=== PATIENT | male | born 1970 | race Caucasian/White ===

== ENCOUNTER 2023-05-30 21:17 | Emergency (ER) | payer OTHER, SELFPAY ==
[2023-05-30 21:19] VITALS: BP 162/99; PULSE 81; RESP 18; TEMP 36.6; O2SAT 94; BMI 28.1
--- NOTE | 2023-05-30 21:22 | ECG_ITS ---
APPROVED REPORT Exam: Resting ECG HR:76 bpm ECG Measurements Heart Rate 76 AXES WA 156 P 49 QRSd 102 QRS 62 QT 374 T 6 QTc 405 Conclusion SINUS RHYTHM NONSPECIFIC T-WAVE ABNORMALITY BORDERLINE ECG UNCONFIRMED REPORT Electronically signed by : Campos Ahn MD 06/01/2023 08:42:25
--- NOTE | 2023-05-30 21:36 | XR_ITS ---
PROCEDURE INFORMATION: Exam: XR Chest Exam date and time: 05/30/2023 9:49 PM Age: 52 years old Clinical indication: Sternal or substernal pain; Prior surgery; Surgery date: 6+ months; Surgery type: Cardiac stents; Additional info: Chest pain TECHNIQUE: Imaging protocol: Radiologic exam of the chest. Views: 2 views. COMPARISON: No relevant prior studies available. FINDINGS: Lungs: Unremarkable. No consolidation. Pleural spaces: Unremarkable. No pleural effusion. No pneumothorax. Heart/Mediastinum: Unremarkable. No cardiomegaly. Bones/joints: Unremarkable. IMPRESSION: No acute findings.
--- NOTE | 2023-05-30 21:39 | HMH.EDGENADL ---
Discharge Plan Disposition Patient Disposition: Home, Self-Care Prescriptions Prescriptions: New lisinopril-hydrochlorothiazide 20-12.5 mg tablet 1 tab PO DAILY Qty: 30 0RF No Action atorvastatin [Lipitor] 80 mg Tablet 80 mg PO DAILY metoprolol succinate 50 mg Tablet Extended Release 24 Hr 50 mg PO DAILY isosorbide mononitrate 30 mg Tablet Extended Release 24 Hr 30 mg PO DAILY sertraline 100 mg Tablet 100 mg PO DAILY clopidogrel [Plavix] 75 mg Tablet 75 mg PO DAILY metformin 1,000 mg Tablet 1,000 mg PO BIDWMEAL lorazepam 1 mg Tablet 1 mg PO DAILY PRN (Reason: Anxiety) glipizide 5 mg Tablet 5 mg PO DAILY bupropion HCl 150 mg Tablet Extended Release 24 Hr 150 mg PO DAILY Referrals Follow up/Referrals: Aubrey Ma MD [Staff Physician] - See instructions (just moved here, needs PCP, antihypertensives, and insulin) David Roy MD [Staff Physician] - See instructions Activity Restrictions/Add. Instructions Additional Instructions/Restrictions: Call your family doctor to establish care for this visit to the emergency department and schedule follow-up within 48 hours to ensure improvement. If you have any worsening of your condition or any other concerning signs or symptoms, return to the emergency department or your primary care doctor for further evaluation. Losartan/HCTZ sent to the pharmacy, take this daily. Family doctor follow-up has been referred and information is here. Clinical Impressions Clinical Impression: Acute hyperglycemia, Chest pain, Diabetes Discharge ED Provider: Sid Hutchinson General Adult HPI <Ephraim Coronado MD - Last Filed: 05/30/23 23:43> General Chief complaint: Chest Pain Stated complaint: Chest Pain/Hyperglycemia Time Seen by Provider: 05/30/23 21:30 Mode of Arrival: EMS Source of Information: Patient Limitations: No Limitations Description of Symptoms (Recalled from ER Triage Doc. by RN): Pt to ED via [facility] for chest pain 2x days. Pt with sharp midsternal intermittent pain, dull pain at present. Patient with history of heart stents placed 20 years post heart attack. FSBS 594 en route via EMS History of Present Illness HPI narrative: 52-year-old male history of poorly controlled diabetes (reported A1c of 14), history of coronary artery disease, presents with approximately an hour of left-sided chest pain, sharp, stretching to the left lateral ribs. No shortness of breath. No history of blood clots, no recent surgery or immobilization. No reported fever chills. No recent trauma. Patient had similar pain yesterday but was not evaluated. Related Data Home Medications Medication Instructions Recorded Confirmed atorvastatin 80 mg tablet (Lipitor) 80 mg PO DAILY High Cholesterol 05/30/23 05/30/23 bupropion HCl 150 mg 24 hr tablet, 150 mg PO DAILY Depression 05/30/23 05/30/23 extended release clopidogrel 75 mg tablet (Plavix) 75 mg PO DAILY Blood Thinner 05/30/23 05/30/23 glipizide 5 mg tablet 5 mg PO DAILY Diabetes 05/30/23 05/30/23 isosorbide mononitrate 30 mg 30 mg PO DAILY Chest Pain 05/30/23 05/30/23 tablet,extended release 24 hr lorazepam 1 mg tablet 1 mg PO DAILY PRN Anxiety 05/30/23 05/30/23 metformin 1,000 mg tablet 1,000 mg PO BIDWMEAL Diabetes 05/30/23 05/30/23 metoprolol succinate 50 mg 50 mg PO DAILY High Blood Pressure 05/30/23 05/30/23 tablet,extended release 24 hr sertraline 100 mg tablet 100 mg PO DAILY Depression 05/30/23 05/30/23 Previous Rx's Medication Instructions Recorded lisinopril 20 1 tab PO DAILY #30 tabs 05/31/23 mg-hydrochlorothiazide 12.5 mg tablet Allergies Allergy/AdvReac Type Severity Reaction Status Date / Time Penicillins Allergy Verified 05/30/23 22:04 [facility] <Ephraim Coronado MD - Last Filed: 05/30/23 23:43> [facility] Disclaimer: The information contained in this section may have been updated after the patient was seen, as this information can be updated
[2023-05-30 21:47] LABS: Basophils # 0.1 K/mm3 (0-0.2); Basophils % 0.8 % (0.1-2.0); Eosinophils # 0.2 K/mm3 (0.0-0.4); Eosinophils % 2.5 % (0.1-12.0); Hematocrit 48.4 % (42.0-52.0); Hemoglobin 15.3 g/dL (14.1-18.0); Lymphocytes % 25.4 % (10-50); Mean Corpuscular HGB Conc 31.6 g/dL (31.8-35.4); Mean Corpuscular Hemoglobin 27.3 pg (27.0-31.2); Mean Corpuscular Volume 86.6 fl (80-94); Mean Platelet Volume 7.1 fl (7.4-10.4); Monocytes # 0.6 K/mm3 (0.1-1.0); Monocytes % 7.2 % (1.7-9.3); Platelet Count 206 K/mm3 (142-424); Red Blood Count 5.59 M/mm3 (4.60-6.20); Red Cell Distribution Width 13.4 % (11.5-17.5); White Blood Count 7.8 K/mm3 (4.8-10.8)
[2023-05-30 21:52] LABS: Chloride 101 mmol/L (98-107); Potassium 4.1 mmoL/L (3.5-5.1); Sodium 133 mmol/L (136-145)
[2023-05-30 21:54] LABS: Alanine Aminotransferase 33 U/L (12-78); Aspartate Amino Transferase 27 U/L (17-59); Blood Urea Nitrogen 12 mg/dl (9-20); Creatinine Clearance Estimated 167 mL/min (50-200); Estimated Glomerular Filt Rate 140 ml/min (>60); GFR (African American) 170 ML/MIN (>60)
[2023-05-30 21:55] LABS: Albumin Level 3.6 g/dl (3.5-5.0); Albumin/Globulin Ratio 1.6 (1.1-1.8); Alkaline Phosphatase 331 U/L (38-126); Anion Gap 12.1 mEq/L (5-15); Bilirubin,Total 0.5 mg/dl (0.2-1.3); Carbon Dioxide 24 mmol/L (22.0-30.0); Globulin 2.3 g/dL (1.3-3.2); Total Protein,Serum 5.9 g/dl (6.3-8.2)
[2023-05-30 21:56] LABS: Glucose 553 mg/dl (74-100)
--- NOTE | 2023-05-30 21:57 | PC.NURSE ---
Melita from Lab called: Critical lab value-Glucose 553. Advised RN and Dr Coronado. CR
[2023-05-30 22:08] VITALS: BP 155/89; PULSE 82; RESP 14; O2SAT 94
[2023-05-30 22:08] LABS: Acetone, Serum (Rapid) None Detected (None Detect)
[2023-05-30 22:29] LABS: Troponin I < 0.01 ng/ml (0.00-0.034)
[2023-05-30 23:00] VITALS: BP 131/83; PULSE 76; RESP 16; O2SAT 95
[2023-05-30 23:31] VITALS: BP 143/94; PULSE 78; RESP 16; O2SAT 96
--- NOTE | 2023-05-31 00:21 | PC.NURSE ---
rounded on patient, patient given diet soda. Call light within reach no other needs
[2023-05-31 01:00] LABS: POC Glucose,Bedside 301 (70-110)
[2023-05-31 01:40] LABS: Troponin I < 0.01 ng/ml (0.00-0.034)
[2023-05-31 01:48] VITALS: BP 166/105; PULSE 71; RESP 16; TEMP 36.4; O2SAT 96
== END 2023-05-31 02:00 | disposition home or self-care (01) ==
PROVIDERS: Emergency Medicine; Emergency Provider Emergency Medicine
DX: R07.9 Chest pain, unspecified (principal); E11.65 Type 2 diabetes mellitus with hyperglycemia; I25.10 Atherosclerotic heart disease of native coronary artery without angina pectoris
CPT/HCPCS: 71046; 80053; 82009; 82962; 84484; 85025; 93005; 96361; 96374; 96375; 99285; J2405

== ENCOUNTER 2023-09-18 10:59 | Emergency (ER) | payer OTHER, SELFPAY ==
[2023-09-18] VITALS (10 sets, daily range): BP systolic 102–152; BP diastolic 68–102; PULSE 94–127; RESP 18–20; TEMP 36.6–36.7; O2SAT 93–97; BMI 28.8
--- NOTE | 2023-09-18 11:36 | ECG_ITS ---
APPROVED REPORT Exam: Resting ECG HR:100 bpm ECG Measurements Heart Rate 100 AXES IL 141 P 67 QRSd 98 QRS 71 QT 349 T 38 QTc 406 Conclusion SINUS TACHYCARDIA NONSPECIFIC T-WAVE ABNORMALITY ABNORMAL RHYTHM ECG UNCONFIRMED REPORT Electronically signed by : Campos Ahn MD 09/19/2023 13:23:52
--- NOTE | 2023-09-18 11:45 | PC.NURSE ---
Pt ambulatory to bathroom and back to bed. Urine collected.
--- NOTE | 2023-09-18 11:45 | PC.NURSE ---
Dr. Ramirez at [facility] for pt eval
[2023-09-18 11:50] LABS: Microscopic, Urine URINE MICROSCOPIC (MICROSCOPIC)
[2023-09-18 11:54] LABS: Basophils # 0.1 K/mm3 (0-0.2); Basophils % 0.3 % (0.1-2.0); Eosinophils # 0.3 K/mm3 (0.0-0.4); Eosinophils % 1.7 % (0.1-12.0); Hematocrit 49.7 % (42.0-52.0); Hemoglobin 17.2 g/dL (14.1-18.0); Lymphocytes % 6.4 % (10-50); Mean Corpuscular HGB Conc 34.6 g/dL (31.8-35.4); Mean Corpuscular Volume 83.9 fl (80-94); Mean Platelet Volume 6.1 fl (7.4-10.4); Monocytes # 0.9 K/mm3 (0.1-1.0); Monocytes % 5.7 % (1.7-9.3); Neutrophils % 85.9 % (37.0-80.0); Platelet Count 214 K/mm3 (142-424); Red Blood Count 5.92 M/mm3 (4.60-6.20); Red Cell Distribution Width 12.9 % (11.5-17.5); White Blood Count 16.3 K/mm3 (4.8-10.8)
[2023-09-18 11:55] LABS: Appearance,Urine CLEAR (Clear); Blood, Urine Negative (Negative); Color,Urine YELLOW (Yellow); Glucose,Urine (UA) TRACE (Negative); Ketones,Urine TRACE (Negative); Leukocyte Esterase,Urine Negative (Negative); Nitrate,Urine Negative (Negative); PH,Urine 5.5 (5.0-8.5); Protein,Urine TRACE (Negative); Specific Gravity, Urine >= 1.030 (1.005-1.030)
[2023-09-18 12:00] LABS: MANUAL DIFFERENTIAL MANUAL DIFFERENTIAL (MANUAL DIFF)
[2023-09-18 12:04] LABS: Bilirubin,Urine 2+ (Negative)
[2023-09-18 12:04] LABS: Lipase 57 U/L (23-300)
[2023-09-18 12:05] LABS: Alanine Aminotransferase 30 U/L (12-78); Albumin Level 4.5 g/dl (3.5-5.0); Albumin/Globulin Ratio 1.8 (1.1-1.8); Alkaline Phosphatase 94 U/L (38-126); Anion Gap 11.8 mEq/L (5-15); Aspartate Amino Transferase 34 U/L (17-59); Blood Urea Nitrogen 17 mg/dl (9-20); Calcium 8.9 mg/dl (8.4-10.2); Carbon Dioxide 26 mmol/L (22.0-30.0); Chloride 101 mmol/L (98-107); Creatinine Clearance Estimated 103 mL/min (50-200); Estimated Glomerular Filt Rate 78 ml/min (>60); GFR (African American) 94 ML/MIN (>60); Globulin 2.5 g/dL (1.3-3.2); Glucose 208 mg/dl (74-100); Potassium 3.8 mmoL/L (3.5-5.1); Sodium 135 mmol/L (136-145)
[2023-09-18 12:09] LABS: D-Dimer 0.75 ug/mL (0.0-0.5)
[2023-09-18 12:11] LABS: Bacteria,Urine 1+ /lpf; Mucus,Urine 2+ /lpf; RBC,Urine Occasional #/hpf (0-3); Squamous Epithelial Cell,Urine Occasional #/hpf (0-5); WBC,Urine Occasional #/hpf (0-3)
[2023-09-18 12:12] LABS: Hyaline Casts,Urine Occasional #/lpf (0)
[2023-09-18 12:21] LABS: Troponin I < 0.01 ng/ml (0.00-0.034)
[2023-09-18 12:36] LABS: VBG Base Excess 0.7 mmol/L (-2.4-2.3); VBG HCO3 26.7 mmol/L (23-30); VBG Oxygen Saturation 47.8 % (50-70); VBG PCO2 52.5 mmol/L (35-51); VBG PH 7.33 mmol/L (7.31-7.41); VBG PO2 25.9 mmol/L (28-40); VBG Total CO2 28.4 mmol/L (23-27)
[2023-09-18 12:56] LABS: Lymphocytes % 9 % (10-50); Monocytes % 6 % (2-9); Neutrophils % 85 % (42-76); Platelet Estimate Normal; RBC Morphology Normal; Total Cells Counted 100
--- NOTE | 2023-09-18 12:56 | HMH.EDGENADL ---
Discharge Plan Disposition Patient Disposition: Home, Self-Care Condition: Good Prescriptions Prescriptions: New ondansetron 4 mg tablet,disintegrating 4 mg PO Q8H PRN (Reason: nausea and vomiting) 4 Days Qty: 12 0RF No Action atorvastatin [Lipitor] 80 mg Tablet 80 mg PO DAILY metoprolol succinate 50 mg Tablet Extended Release 24 Hr 50 mg PO DAILY isosorbide mononitrate 30 mg Tablet Extended Release 24 Hr 30 mg PO DAILY sertraline 100 mg Tablet 100 mg PO DAILY clopidogrel [Plavix] 75 mg Tablet 75 mg PO DAILY metformin 1,000 mg Tablet 1,000 mg PO BIDWMEAL lorazepam 1 mg Tablet 1 mg PO DAILY PRN (Reason: Anxiety) glipizide 5 mg Tablet 5 mg PO DAILY bupropion HCl 150 mg Tablet Extended Release 24 Hr 150 mg PO DAILY lisinopril-hydrochlorothiazide 20-12.5 mg tablet 1 tab PO DAILY Qty: 30 0RF Referrals Follow up/Referrals: Provider,Referral, MD [Primary Care Provider] - See instructions Activity Restrictions/Add. Instructions Additional Instructions/Restrictions: You were evaluated in the emergency department today. Please follow-up closely with your primary care provider over the next 24 to 48 hours. They may want to make changes to your medications based on your symptoms. Hydrate is much as possible. 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 Return to the emergency department for new or worsening symptoms. Clinical Impressions Clinical Impression: Nausea vomiting and diarrhea Instructions Patient Instructions: DI for Diarrhea and Traveler's Diarrhea -- Adult, DI for Nausea -- Adult Discharge ED Provider: Soha Ramirez General Adult HPI General Chief complaint: Nausea/Vomiting/Diarrhea Stated complaint: stomach ache and nausea Time Seen by Provider: 09/18/23 11:28 Mode of Arrival: Ambulatory Source of Information: Patient Limitations: No Limitations Description of Symptoms (Recalled from ER Triage Doc. by RN): c/o nausea, no appetite for approx 2 weeks. Vomited before arrival to ER. STates his belly felt better after he vomited. He was in the shower earlier and felt like he was going to pass out. states bp was checked at that time reading 70/30. History of Present Illness HPI narrative: This patient is a 52-year-old male with a history of insulin-dependent diabetes, hypertension, hyperlipidemia, and CAD presenting to the emergency department for evaluation with concern for nausea, decreased appetite over the last 2 weeks, nausea, vomiting, and diarrhea. He reports that today he felt much worse. Emesis is nonbloody nonbilious. This morning, he was in the shower when he nearly passed out. He checked blood pressure at home via home cuff at that time and noted that it was 70/30. He does note that he recently started on lisinopril/HCTZ 20 mg twice daily and his metoprolol was increased. He denies any fevers, chills, chest pain, shortness of breath, palpitations, abdominal pain, hematemesis, hematochezia, melena, rashes, swelling, or other concerns. He reports that he is unable to eat much but has been keeping an eye on his blood sugar and it is better than it usually is. Related Data Home Medications Medication Instructions Recorded Confirmed atorvastatin 80 mg tablet (Lipitor) 80 mg PO DAILY High Cholesterol 05/30/23 05/30/23 bupropion HCl 150 mg 24 hr tablet, 150 mg PO DAILY Depression 05/30/23 05/30/23 extended release clopidogrel 75 mg tablet (Plavix) 75 mg PO DAILY Blood Thinner 05/30/23 05/30/23 glipizide 5 mg tablet 5 mg PO DAILY Diabetes 05/30/23 05/30/23 isosorbide mononitrate 30 mg 30 mg PO DAILY Chest Pain 05/30/23 05/30/23 tablet,extended release 24 hr lorazepam 1 mg tablet 1 mg PO DAILY PRN Anxiety 05/30/23 05/30/23 metformin 1,000 mg tablet 1,000 mg PO BIDWMEAL Diabetes 05/30/23 05/30/23 metoprolol succinate 50 mg 50 mg PO DAILY High Blood Pressure 05/30/23 05/30/23 tablet,exten
[2023-09-18 13:16] LABS: Acetone, Serum (Rapid) None Detected (None Detect)
--- NOTE | 2023-09-18 13:43 | PC.NURSE ---
rounded on pt no needs at this time,call light at [facility]
== END 2023-09-18 14:53 | disposition home or self-care (01) ==
LOC: UTC 11:01 → ER 11:14
PROVIDERS: Emergency Provider Emergency Medicine
DX: R11.2 Nausea with vomiting, unspecified (principal); R19.7 Diarrhea, unspecified; R63.0 Anorexia; E11.9 Type 2 diabetes mellitus without complications; R55 Syncope and collapse; I10 Essential (primary) hypertension; I25.10 Atherosclerotic heart disease of native coronary artery without angina pectoris; E78.5 Hyperlipidemia, unspecified
CPT/HCPCS: 80053; 81001; 82009; 82803; 83690; 84484; 85007; 85025; 85378; 93005; 96361; 96374; 99285; J2405

== ENCOUNTER 2024-01-01 10:34 | Day surgery (SDC) | payer OTHER, SELFPAY ==
[2023-12-28 10:10] VITALS: BMI 30.5
--- NOTE | 2023-12-28 10:14 | SUR.PREOP ---
Patient stated he was told by girl in Dr Piedra office to hold his Plavix for 5 days before procedure
[2024-01-01] MEDS: LACTATED RINGERS 1000ML 1,000 ML 100 ML IV (10:59)
[2024-01-01 11:01] VITALS: BP 137/85; PULSE 79; RESP 18; TEMP 36.2; O2SAT 95
--- NOTE | 2024-01-01 11:10 | HMH.SCOPE ---
Procedure: Date: 01/01/24 Patient Date of :: 1970 Procedure Performed:: Colonoscopy with polypectomy Indications:: History of polyps Performing Provider:: Martín Almeida MD Referring Provider:: . Sedation:: Monitored anesthesia care Procedure:: After informed consent was obtained the patient was taken to the endoscopy suite. Sedation ensued after the patient was transferred to the left lateral decubitus position. Pulse, blood pressure, and oxygen saturation were monitored throughout the procedure. Digital rectal exam revealed no significant abnormality. The colonoscope was placed in position. The entire colon was evaluated. The colonoscope was carefully removed and the patient was transferred to recovery in stable condition. Please see findings and specimens below for detail. Findings:: Bowel preparation moderate to poor Moderate spasticity Polyps (see specimens) Specimens:: Small polyp along the margin of the appendiceal orifice (cold biopsy forceps) Sessile cecal polyp (cold snare) Transverse colon polyp (cold snare) Polyp at 7 cm (cold snare) Recommendations:: Timing of repeat colonoscopy is pending pathology will likely be around 2-3 years with extended bowel preparation secondary to [id number] bowel preparation, number of polyps, and history of polyps. Complications:: No immediate Estimated blood obtained (mL): 1 Colonoscopy Component Colonoscopy Component Was a colonoscopy performed during today's procedure?: Yes Recommended follow up colonoscopy of at least 10 years?: No If no, follow up colonoscopy recommended in ___ years?: (See above) Reason for not recommending >/= 10 yr follow-up interval?: (See above)
[2024-01-01 11:16] LABS: POC Glucose,Bedside 161 (70-110)
[2024-01-01 11:20] VITALS: O2SAT 95
[2024-01-01 12:05] VITALS: BP 104/67; PULSE 91; RESP 14; TEMP 36.4; O2SAT 91
--- NOTE | 2024-01-01 12:14 | P.PNANES_ITS ---
[facility] Disclaimer: The information contained in this section may have been updated after the patient was seen, as this information can be updated by other users. Medical History Diabetes mellitus, type 2 History of left heart catheterization (LHC) Hyperlipidemia Hypertension Surgical History (Updated 12/28/23 @ 10:42 by Alanna Person RN) History of heart artery stent Family History Other No significant family history Social History Smoking Status: Never smoker alcohol intake: never substance use type: denies use current occupational status: employed Travel in the last 8 weeks: None [facility] Anesthesia Checklist Patient Identification Patient Identification: Arm Band and Family Structural Data Admitted From: Home Planned Operative Procedure/s: colonoscopy Consent for Planned Operative Procedure(s) Verified: Yes Verified Documents: Surgical Consent and History and Physical NPO Status Verified Time NPO: 00:00 Additional verifications Patient : No Anesthesia Reactions: No Hx Blood Transfusions: No Blood Transfusion Reaction: No Cephalosporin Allergy: No Previous Colonoscopy: Yes Airway Assessment Mallampati Score:: Class III C-Spine Mobility Assessed: Yes TMJ Mobility Assessed: Yes Dentition: Good Dentition Neurological Assessment Level of Consciousness: Awake, Alert, Appropriate and Follows Commands Hx Seizures: No Numbness or tingling in extremities: No Anesthesia Plan Anesthesia Risk discussed: Yes ASA Class: III Anesthesia Type: MAC Preoperative Comments Pre-Operative Comments: cardiac stents. Hypertension. IDDM. History of polyps.
[2024-01-01 12:15] VITALS: BP 105/56; PULSE 85; RESP 14; O2SAT 92
[2024-01-01 12:25] VITALS: BP 97/71; PULSE 76; RESP 16; O2SAT 94
[2024-01-01 12:37] VITALS: BP 114/65; PULSE 83; RESP 16; O2SAT 94
== END 2024-01-01 12:45 | disposition home or self-care (01) ==
PROVIDERS: PCP Internal Medicine Adolescent Medicine; Visit Provider Surgery
PROC: 0DJD8ZZ Inspection of Lower Intestinal Tract, Via Natural or Artificial Opening Endoscopic (ICD-10-PCS; CPT 45380; principal; 2024-01-01 11:30)
DX: Z12.11 Encounter for screening for malignant neoplasm of colon (principal); Z86.010 Personal history of colon polyps; K63.5 Polyp of colon; E11.9 Type 2 diabetes mellitus without complications
CPT/HCPCS: 45380; 45385; 82962; J2704

== ENCOUNTER 2024-08-31 16:35 | Inpatient (IN) | payer OTHER, SELFPAY ==
[2024-08-31] VITALS (10 sets, daily range): BP systolic 119–150; BP diastolic 73–101; PULSE 77–92; RESP 16–24; TEMP 36.8; O2SAT 92–96; BMI 32.8; BMI 32.1
--- NOTE | 2024-08-31 17:09 | PC.NURSE ---
FSBS is 197 at this time.
--- NOTE | 2024-08-31 17:12 | CT_ITS ---
PROCEDURE INFORMATION: Exam: CTA Chest With Contrast Exam date and time: 08/31/2024 5:53 PM Age: 53 years old Clinical indication: Shortness of breath and other: Palpitations; Additional info: Diaphresis, hypoxemia, presyncope TECHNIQUE: Imaging protocol: Computed tomographic angiography of the chest with contrast. Exam focused on the arteries. 3D rendering (Not supervised by radiologist): MIP and/or 3D reconstructed images were created by the technologist. Radiation optimization: All CT scans at this facility use at least one of these dose optimization techniques: automated exposure control; mA and/or kV adjustment per patient size (includes targeted exams where dose is matched to clinical indication); or iterative reconstruction. Contrast material: ISOVUE; Contrast volume: 100 ml; Contrast route: INTRAVENOUS (IV); COMPARISON: CR XR CHEST 2V 05/30/2023 9:49 PM FINDINGS: Pulmonary arteries: Suboptimal contrast in the pulmonary arteries and therefore pulmonary emboli cannot be excluded. Aorta: Unremarkable. No aortic aneurysm. No aortic dissection. Lungs: Mild dependent atelectasis in the lungs. No consolidation or significant nodules. Pleural spaces: Unremarkable. No pneumothorax. No pleural effusion. Heart: Unremarkable. No cardiomegaly. No pericardial effusion. Coronary arteries: Stent in the circumflex coronary artery. Lymph nodes: Unremarkable. No enlarged lymph nodes. Bones/joints: Unremarkable. No acute fracture. Soft tissues: Unremarkable. IMPRESSION: 1. Study was optimized for contrast in the thoracic aorta and not for the pulmonary arteries. Therefore, pulmonary emboli cannot be excluded. 2. No aortic aneurysm or dissection. 3. No acute findings.
--- NOTE | 2024-08-31 17:12 | ECG_ITS ---
APPROVED REPORT Exam: Resting ECG HR:84 bpm ECG Measurements Heart Rate 84 AXES SD 145 P 49 QRSd 93 QRS 65 QT 341 T 138 QTc 382 Conclusion SINUS RHYTHM NONSPECIFIC T-WAVE ABNORMALITY ABNORMAL ECG Electronically signed by : ROSHAN SUNSHINE, 09/04/2024 07:44:10
--- NOTE | 2024-08-31 17:13 | XR_ITS ---
PROCEDURE INFORMATION: Exam: XR Chest Exam date and time: 08/31/2024 6:05 PM Age: 53 years old Clinical indication: Other: Palpitations; Additional info: Palpitations, diaphresis TECHNIQUE: Imaging protocol: Radiologic exam of the chest. Views: 1 view. COMPARISON: CT ANGIO CHEST PE PROTOCOL 08/31/2024 5:53 PM FINDINGS: Lungs: Normal. Pleural spaces: Normal. No pleural effusion. No pneumothorax. Heart/Mediastinum: Normal. No cardiomegaly. Bones/joints: Unremarkable. IMPRESSION: No acute findings.
--- NOTE | 2024-08-31 17:13 | CT_ITS ---
PROCEDURE INFORMATION: Exam: CTA Abdomen and Pelvis With Contrast Exam date and time: 08/31/2024 5:53 PM Age: 53 years old Clinical indication: Shortness of breath; Additional info: Presncope, diarrhea, general malaise TECHNIQUE: Imaging protocol: Computed tomographic angiography of the abdomen and pelvis with contrast. Exam focused on the arteries. 3D rendering (Not supervised by radiologist): MIP and/or 3D reconstructed images were created by the technologist. Radiation optimization: All CT scans at this facility use at least one of these dose optimization techniques: automated exposure control; mA and/or kV adjustment per patient size (includes targeted exams where dose is matched to clinical indication); or iterative reconstruction. Contrast material: ISOVUE 370; Contrast volume: 100 ml; Contrast route: INTRAVENOUS (IV); COMPARISON: CT ANGIO CHEST PE PROTOCOL 08/31/2024 5:53 PM FINDINGS: Aorta: Mild abdominal aortic atherosclerotic plaque. No aneurysm or dissection. Celiac trunk and mesenteric arteries: No occlusion or significant stenosis. Incidental note is made of separate origins of the common hepatic artery and splenic artery directly from the aorta. Renal arteries: No significant atherosclerotic disease. No occlusion or significant stenosis. Right iliac arteries: No significant atherosclerotic disease. No occlusion or significant stenosis. Left iliac arteries: No significant atherosclerotic disease. No occlusion or significant stenosis. Liver: No mass. Gallbladder and biliary ducts: Unremarkable. No calcified stones. No ductal dilation. Pancreas: Unremarkable. No mass. No ductal dilation. Spleen: Unremarkable. No splenomegaly. Adrenal glands: Unremarkable. No mass. Kidneys and ureters: 1 mm calyceal calculus in the lower pole of the left kidney. No ureteral calculi or hydronephrosis. No renal masses or cysts. Stomach and bowel: Mild sigmoid colon diverticulosis without diverticulitis. No dilated or thickened bowel loops. Appendix: No evidence of appendicitis. Intraperitoneal space: Mild mesenteric edema adjacent to loops of small bowel in the left upper quadrant. Lymph nodes: Unremarkable. No enlarged lymph nodes. Urinary bladder: Unremarkable. No mass. Reproductive: Unremarkable as visualized. Bones/joints: No acute fracture. Soft tissues: Mild bilateral lower anterior abdominal wall subcutaneous fat stranding is likely from prior medication injections. Soft tissue density in the left inguinal canal is likely from a previous hernia repair. IMPRESSION: Mild mesenteric edema adjacent to loops of small bowel in the left upper quadrant. Findings could be secondary to a nonspecific enteritis. No dilated or thickened bowel loops.
[2024-08-31] MEDS: ASPIRIN 81MG CHEWABLE TABLET 324 MG PO (17:20)
[2024-08-31 17:23] LABS: VBG Base Excess -0.9 mmol/L (-2.4-2.3); VBG HCO3 24.7 mmol/L (23-30); VBG Oxygen Saturation 72.8 % (50-70); VBG PCO2 45.4 mmol/L (35-51); VBG PH 7.35 mmol/L (7.31-7.41); VBG PO2 36.5 mmol/L (28-40); VBG Total CO2 26.1 mmol/L (23-27)
[2024-08-31 17:24] LABS: Lactate Venous 2.3 mmol/L (0.4-2.0)
[2024-08-31 17:26] LABS: Albumin Level 4.8 g/dl (3.5-5.0); Chloride 100 mmol/L (98-107); Potassium 4.3 mmoL/L (3.5-5.1); Sodium 136 mmol/L (136-145)
[2024-08-31 17:28] LABS: Alanine Aminotransferase 45 U/L (12-78); Aspartate Amino Transferase 36 U/L (17-59); Blood Urea Nitrogen 24 mg/dl (9-20); Creatinine Clearance Estimated 102 mL/min (50-200); Estimated Glomerular Filt Rate 69 ml/min (>60); GFR (African American) 84 ML/MIN (>60)
[2024-08-31 17:29] LABS: Albumin/Globulin Ratio 1.6 (1.1-1.8); Alkaline Phosphatase 117 U/L (38-126); Anion Gap 15.3 mEq/L (5-15); Bilirubin,Total 0.9 mg/dl (0.2-1.3); Calcium 9.5 mg/dl (8.4-10.2); Carbon Dioxide 25 mmol/L (22.0-30.0); Glucose 236 mg/dl (74-100); HDL Cholesterol 47 mg/dl (40-60); Lipase 54 U/L (23-300); Magnesium 1.6 mg/dl (1.6-2.3); Total Protein,Serum 7.8 g/dl (6.3-8.2)
[2024-08-31 17:30] LABS: Chol/HDL Ratio 4.6 (1-3.5); Cholesterol 217 mg/dl (140-200); Lactic Acid 1.5 mmol/L (0.7-2.1); Triglycerides 249 mg/dl (30-150); VLDL Cholesterol 50 mg/dL (0-40)
--- NOTE | 2024-08-31 17:30 | ED_ITS ---
Discharge Plan Disposition Patient Disposition: Admitted Chief Complaint: Abdominal Pain Clinical Impressions Clinical Impression: Non-ST elevation AR (NSTEMI) Discharge ED Provider: Sid Hutchinson General Adult HPI General Chief complaint: Abdominal Pain Stated complaint: HR 120, nausea, O2 92 Time Seen by Provider: 08/31/24 16:49 Mode of Arrival: Ambulatory Source of Information: Patient Limitations: No Limitations Description of Symptoms (Recalled from ER Triage Doc. by RN): States he woke up this morning and that his stomach was cramping. States he just generally does not feel well. States that his heart was racing and that his oxygen sat was low. History of Present Illness HPI narrative: Please note that above description of symptoms, in this electronic medical record under categorization of recalled from ER triage doctor by RN are reflective of an initial nursing assessment, however, is not reflective of my full history and physical exam that was personally taken and clarified. Consequentially, this preceding description of symptoms, which may include the patient's categorized chief complaint in the EMR, do not reflect my personal clinical impression, and the ultimate description of history of present illness and patient stated complaints should be deferred to this section of the note. Unless stated otherwise or congruent with this section of the note, additional signs, symptoms, or incongruence should be interpreted as inaccurate with my clinical impression. Related Data Home Medications ?Medication ?Instructions ?Recorded ?Confirmed atorvastatin 80 mg tablet (Lipitor) 80 mg PO DAILY High Cholesterol 05/30/23 05/20/24 bupropion HCl 150 mg 24 hr tablet, 150 mg PO DAILY Depression 05/30/23 05/20/24 extended release clopidogrel 75 mg tablet (Plavix) 75 mg PO DAILY Blood Thinner 05/30/23 05/20/24 isosorbide mononitrate 30 mg 30 mg PO DAILY Chest Pain 05/30/23 05/20/24 tablet,extended release 24 hr metformin 1,000 mg tablet 1,000 mg PO BIDWMEAL Diabetes 05/30/23 05/20/24 sertraline 100 mg tablet 100 mg PO DAILY Depression 05/30/23 05/20/24 glimepiride 2 mg tablet 2 mg PO DAILY 03/26/24 05/20/24 insulin glargine 100 60 unit SQ DAILY 03/26/24 05/20/24 unit-lixisenatide 33 mcg/mL subcutaneous pen (Soliqua 100/33) insulin glargine 100 unit/mL (3 20 unit SQ DAILY 03/26/24 05/20/24 mL) subcutaneous pen (Lantus Solostar U-100 Insulin) metoprolol succinate 100 mg 100 mg PO DAILY 03/26/24 05/20/24 tablet,extended release 24 hr cetirizine 10 mg tablet mg PO 05/20/24 05/20/24 omeprazole 40 mg capsule,delayed mg PO 05/20/24 05/20/24 release Previous Rx's ?Medication ?Instructions ?Recorded lisinopril 20 1 tab PO DAILY #30 tabs 05/31/23 mg-hydrochlorothiazide 12.5 mg tablet Allergies Allergy/AdvReac Type Severity Reaction Status Date / Time Penicillins Allergy Verified 05/20/24 08:39 [facility] Disclaimer: The information contained in this section may have been updated after the patient was seen, as this information can be updated by other users. Medical History Diabetes mellitus, type 2 History of left heart catheterization (LHC) Hyperlipidemia Hypertension Surgical History History of heart artery stent Family History Other No significant family history Social History Smoking Status: Never smoker alcohol intake: never substance use type: denies use current occupational status: employed Travel in the last 8 weeks: None ROS Obtained: Yes All systems reviewed & no additional complaints except as documented Physical Exam General General appearance: alert Head Head exam: atraumatic and normocephalic Eye Eye exam: Present normal appearance, PERRL and EOMI Neck Neck exam: Present normal inspection, full ROM and trachea midline Respiratory Respiratory exam: Absent respiratory distress, wheezes, stridor, accessory muscle use or prolonged expiratory phase Cardiovascular Cardiovascular exam: Present other (Pulses equal symmetric in upper and lower extremities) Abdominal Exam Abdominal exam: Present soft; Absent distention, tenderness or pulsatile mass Extremities Exam Extremities exam: Absent edema Neurological Exam Neurological exam: Present alert, oriented X3 and CN II-XII intact; Absent motor sensory deficit Skin Skin exam: Present warm and dry; Absent diaphoresis or erythema Medical Decision Making Medical Records Medical records reviewed: Yes I reviewed the patient's medical records. Screening: Per USPSTF and CDC recommendations, given the prevalence of disease in our region, it is our hospital?s policy to screen for HIV and viral Hepatitis for all patients aged 18 and over and those with ongoing risk factors. Bridger Inquiry Pt receiving controlled substance: No Bridger was queried for this patient: No Vital Signs: 08/31/24 16:37 08/31/24 16:59 08/31/24 18:30 Temperature 98.2 F Temperature Source Oral Pulse Rate 89 87 Pulse Rate [Radial] 92 H Respiratory Rate 16 19 Blood Pressure 150/97 H 133/99 H Blood Pressure [Right Arm] 148/101 H Blood Pressure Mean [Right Arm] 116 Blood Pressure Source Blood Pressure Source [Right Arm] Automatic Cuff Blood Pressure Position Blood Pressure Position [Right Arm] Sitting 02 Sat by Pulse Oximetry 96 93 L 95 Oxygen Delivery Method Room Air Room Air 08/31/24 19:00 08/31/24 19:30 08/31/24 20:00 Temperature Temperature Source Pulse Rate 84 82 77 Pulse Rate [Radial] Respiratory Rate 24 16 18 Blood Pressure 133/82 119/78 129/81 Blood Pressure [Right Arm] Blood Pressure Mean [Right Arm] Blood Pressure Source Blood Pressure Source [Right Arm] Blood Pressure Position Blood Pressure Position [Right Arm] 02 Sat by Pulse Oximetry 93 L 92 L 92 L Oxygen Delivery Method 08/31/24 20:08 Temperature 98.2 F Temperature Source Oral Pulse Rate 77 Pulse Rate [Radial] Respiratory Rate 18 Blood Pressure 129/81 Blood Pressure [Right Arm] Blood Pressure Mean [Right Arm] Blood Pressure Source Automatic Cuff Blood Pressure Source [Right Arm] Blood Pressure Position Sitting Blood Pressure Position [Right Arm] 02 Sat by Pulse Oximetry Oxygen Delivery Method Room Air Lab Data Lab Results 08/31/24 17:09: Sodium 136, Potassium 4.3, Chloride 100, Carbon Dioxide 25, A nion Gap 15.3 H, BUN 24 H, Creatinine 1.10, Estimated Creat Clear 102, Estimated GFR 69, Est GFR ( Amer) 84, Glucose 236 H, Hemoglobin A1c 7.9 H, Lactate 1.5, Calcium 9.5, Magnesium 1.6, Total Bilirubin 0.9, AST 36, ALT 45, Alkaline Phosphatase 117, Troponin I 0.07 H, NT-Pro-B Natriuret Pep 87.2, Total Protein 7.8, Albumin 4.8, Globulin 3.0, Albumin/Globulin Ratio 1.6, Triglycerides 249 H, Cholesterol 217 H, LDL Cholesterol Direct 137.31 H, VLDL Cholesterol 50 H, HDL Cholesterol 47, Cholesterol/HDL Ratio 4.6 H, Lipase 54, TSH 3.05, Thyroxine (T4) 7.6, HIV 1&2 Antibody Rapid Nonreactive 08/31/24 17:15: VBG pH 7.35, VBG pCO2 45.4, VBG pO2 36.5, VBG HCO3 24.7, VBG Total CO2 26.1, VBG O2 Saturation 72.8 H, VBG Base Excess -0.9, VBG Lactic Acid 2.3 H 08/31/24 17:35: WBC 11.8 H, RBC 6.64 H, Hgb 18.5 H, Hct 54.5 H, MCV 82.1, MCH 27.8, MCHC 33.9, RDW 13.9, Plt Count 191, MPV 6.7 L, Neut % (Auto) 79.0, Lymph % (Auto) 9.8 L, [place] % (Auto) 8.3, Eos % (Auto) 2.3, Baso % (Auto) 0.7, Neut # (Auto) 9.3 H, Lymph # (Auto) 1.2, [place] # (Auto) 1.0, Eos # (Auto) 0.3, Baso # (Auto) 0.1, PT 10.2, INR 0.90, APTT 23.5 08/31/24 18:45: Urine Color Yellow, Urine Appearance Clear, Urine pH 5.5, Ur Specific [place] 1.010, Urine Protein Negative, Urine Glucose (UA) 1+, Urine Ketones Negative, Urine Blood Negative, Urine Nitrate Negative, Urine Bilirubin Negative, Urine Urobilinogen 0.2, Ur Leukocyte Esterase Negative, Urine RBC None, Urine WBC Occasional, Ur Squamous Epith Cells None, Urine Bacteria Trace 08/31/24 17:35 08/31/24 17:09 Orders (Tests/Meds): ED MEDICATIONS Discontinued Medications Generic Name Dose Route Start Last Admin Trade Name Freq PRN Reason Stop Dose Admin Aspirin 324 mg 08/31/24 17:12 08/31/24 17:20 Aspirin 81mg Chewable Tablet PO 08/31/24 17:13 324 mg ONCE ONE Administration Iopamidol 100 ml 08/31/24 18:10 08/31/24 18:11 Iopamidol-370 (76%);100ml Bottle IV 08/31/24 18:11 100 ml ONCE ONE Administration Sodium Chloride 10 ml 08/31/24 18:10 08/31/24 18:11 Sodium Chloride 0.9% 10ml Syr (Rad Only) IV 08/31/24 18:11 10 ml ONCE ONE Administration Sodium Chloride 50 ml 08/31/24 18:10 08/31/24 18:11 0.9 % Sodium Chloride 50 Ml Vial IV 08/31/24 18:11 50 ml ONCE ONE Administration ORDERS Category Date Time Status CT angio abdomen pelvis Stat Cat Scan 08/31/24 17:[address] angio chest PE protocol Stat Cat Scan 08/31/24 17:12 Completed XR chest portable Stat Exams 08/31/24 17:13 Completed Complete Blood Count Auto Diff Stat Lab 08/31/24 17:35 Completed Comprehensive Metabolic Panel Stat Lab 08/31/24 17:09 Completed HIV (1&2) Antibody Rapid Stat Lab 08/31/24 17:09 Completed Hemoglobin A1C Stat Lab 08/31/24 17:09 Completed Hep C Ab with Reflex to RNA Stat Lab 08/31/24 17:09 Received Lactic Acid Stat Lab 08/31/24 17:09 Completed Lipase Stat Lab 08/31/24 17:09 Completed Lipid Panel Stat Lab 08/31/24 17:09 Completed Magnesium Stat Lab 08/31/24 17:09 Completed NT Pro Brain Natriuretic Pep. Stat Lab 08/31/24 17:09 Completed PT INR [Prothrombin Time INR] Stat Lab 08/31/24 17:35 Completed PTT [Activated Partial Thrombo Time] Stat Lab 08/31/24 17:35 Completed T4 (Thyroxine) Stat Lab 08/31/24 17:09 Completed TSH [Thyroid Stimulating Hormone] Stat Lab 08/31/24 17:09 Completed Troponin I Q3H Lab 08/31/24 20:15 Ordered Troponin I Q3H Lab 08/31/24 23:15 Ordered Troponin I Stat Lab 08/31/24 17:09 Completed Urinalysis and Microscopic Stat Lab 08/31/24 18:45 Completed Blood Culture Stat Micro 08/31/24 17:35 Received Venous Blood Gas Stat RT 08/31/24 17:15 Completed HEART Score History (anamnesis): Highly suspicious ECG: Non-specific disturbance Age: 45-65 years Risk factors: 3 or more risk factors Troponin: 1-3x normal limit HEART Score: 7 Medical Decision Narrative: 53-year-old male history of hypertension, hyperlipidemia, diabetes, CAD status post AR and stenting x 3, presenting with general malaise. Patient states that he woke up today 08/31 with palpitations. Had not taken his metoprolol because he had run out. Went to the store, got the metoprolol, took it and it has helped. Palpitations associated with chest discomfort, but no overt pain. Did not radiate. Associated with diaphoresis, nausea without vomiting as well as diarrhea. No fevers or chills, productive cough, sick contacts, or any other concerns. No lower extremity swelling, syncope. History was obtained via conversation with patient. On arrival, patient hemodynamically stable, alert, oriented x4, appropriate, GCS 15, moving all extremities spontaneously, pupils equal and reactive to light. Full physical exam performed and significant for uncomfortable appearing male no acute distress. He is diaphoretic. Good capillary refill and pulses equal and symmetric in upper and lower extremities. Lungs are clear to auscultation, but quiet in the lung bases bilaterally. No murmurs gallops or rubs. Neurologically intact. Differential includes ACS, AR, PE, pneumothorax, pneumonia, sepsis, dissection, among others. Patient placed on continuous cardiac monitoring and continuous pulse ox with initial blood pressure 148/1 1, heart rate 92, saturation 96% on room air. Independent interpretation of EKG shows sinus rhythm 84 bpm. T wave inversions in 1 and aVL as well as V5 and V6, no reciprocal elevations. MN 145, QRS 93, QTc 382. Patient was given 324 mg aspirin for symptomatic management and correction of underlying abnormalities. Workup independently interpreted and significant for elevated leukocytosis 11.8 with relative neutrophilia. Coags normal. Patient's VBG with lactate 2.3, otherwise normal. Kidney function normal, initial troponin elevated 0.07. Lipase and thyroid studies normal. Repeat EKG similar to the first. T wave inversions V5, V6, 1, aVL without reciprocal elevations. On independent interpretation of imaging, no acute cardiopulmonary space disease. CT angiogram of the chest with poor contrast timing, but no obvious pulmonary embolus. No evidence of dissection. CT angiogram of the abdomen demonstrated no acute intra-abdominal abnormality. See radiology read for full review of final results. Heart score 7. Patient no longer having chest pain on reevaluation. Given heart score of 7, cardiac risk factors and history, diaphoresis and concerning presentation, patient to be admitted for cardiology workup and consultation. Because patient high risk for clinical decompensation, deemed appropriate for inpatient admission. Results were relayed to patient who voiced understanding and patient was agreeable to inpatient admission and management. Patient was admitted to the hospital for further definitive management. Trailer Rental Clerk disclaimer Much of this encounter note is an electronic remote encoding operations supervisor spoken language to printed text. Electronic remote encoding operations supervisor of the spoken language may permit errors. Although I have reviewed the note, some errors may still exist. Critical Care Critical Care Time Critical Care Time: Yes (cardiac) Attestation: On 08/31/24, the high probability of a clinically significant, sudden or life threatening deterioration of the following system(s) required my full and direct attention, intervention and personal management. The time I documented below is in addition to time spent performing reported procedures but includes the following listed in this critical care notation. Total Time Total Critical Care Time: 35
[2024-08-31 17:40] LABS: Direct LDL Cholesterol 137.31 mg/dL (100-129)
[2024-08-31 17:41] LABS: NT Pro Brain Natriuretic Pep. 87.2 pg/mL (0-125)
[2024-08-31 17:44] LABS: Troponin I 0.07 ng/ml (0.00-0.034)
[2024-08-31 17:46] LABS: Basophils # 0.1 K/mm3 (0-0.2); Basophils % 0.7 % (0.1-2.0); Eosinophils # 0.3 K/mm3 (0.0-0.4); Eosinophils % 2.3 % (0.1-12.0); Hematocrit 54.5 % (42.0-52.0); Lymphocytes # 1.2 K/mm3 (0.7-4.5); Lymphocytes % 9.8 % (10-50); Mean Corpuscular HGB Conc 33.9 g/dL (31.8-35.4); Mean Corpuscular Hemoglobin 27.8 pg (27.0-31.2); Mean Corpuscular Volume 82.1 fl (80-94); Mean Platelet Volume 6.7 fl (7.4-10.4); Monocytes % 8.3 % (1.7-9.3); Neutrophils # 9.3 K/mm3 (1.8-7.8); Platelet Count 191 K/mm3 (142-424); Red Blood Count 6.64 M/mm3 (4.60-6.20); Red Cell Distribution Width 13.9 % (11.5-17.5); White Blood Count 11.8 K/mm3 (4.8-10.8)
[2024-08-31 17:48] LABS: T4 (Thyroxine) 7.6 ug/dl (5.53-11.0)
--- NOTE | 2024-08-31 17:48 | PC.NURSE ---
PT TO CT
[2024-08-31 17:57] LABS: Activated Partial Thrombo Time 23.5 seconds (22.8-30.6); Prothrombin Time 10.2 seconds (10.1-12.5)
[2024-08-31 18:02] LABS: Thyroid Stimulating Hormone 3.05 uIU/mL (0.465-4.68)
[2024-08-31 18:10] LABS: Hemoglobin A1C 7.9 % (4.0-6.0)
[2024-08-31] MEDS: IOPAMIDOL-370 (76%);100ML BOTTLE 100 ML IV (18:11)
[2024-08-31] MEDS: 0.9 % SODIUM CHLORIDE 50 ML VIAL IV (18:11)
[2024-08-31] MEDS: SODIUM CHLORIDE 0.9% 10ML SYR (RAD ONLY) 10 ML IV (18:11)
[2024-08-31 18:27] LABS: Hemoglobin 18.5 g/dL (14.1-18.0)
--- NOTE | 2024-08-31 18:45 | ECG_ITS ---
APPROVED REPORT Exam: Resting ECG HR:84 bpm ECG Measurements Heart Rate 84 AXES ND 154 P 63 QRSd 98 QRS 62 QT 347 T 125 QTc 388 Conclusion SINUS RHYTHM MODERATE T-WAVE ABNORMALITY, CONSIDER LATERAL ISCHEMIA [-0.1+ mV T-WAVE IN I/aVL/V5/V6] ABNORMAL ECG Electronically signed by : ROSHAN SUNSHINE, 09/04/2024 07:43:32
[2024-08-31 18:51] LABS: HIV (1&2) Antibody Rapid NONREACTIVE (NONREACTIVE)
[2024-08-31 18:55] LABS: Microscopic, Urine URINE MICROSCOPIC (MICROSCOPIC)
[2024-08-31 19:01] LABS: Appearance,Urine CLEAR (Clear); Bilirubin,Urine Negative (Negative); Blood, Urine Negative (Negative); Color,Urine YELLOW (Yellow); Glucose,Urine (UA) 1+ (Negative); Ketones,Urine Negative (Negative); Leukocyte Esterase,Urine Negative (Negative); Nitrate,Urine Negative (Negative); PH,Urine 5.5 (5.0-8.5); Protein,Urine Negative (Negative); Urobilinogen,Urine 0.2 EU/dl (0.2)
[2024-08-31 19:07] LABS: Bacteria,Urine Trace /lpf; WBC,Urine Occasional #/hpf (0-3)
--- NOTE | 2024-08-31 20:01 | PC.NURSE ---
Attempted to call report nurse not available at this time will call back
--- NOTE | 2024-08-31 20:07 | PC.NURSE ---
Report called to Jaye AGUDELO
--- NOTE | 2024-08-31 20:37 | P.HP_ITS ---
<Statement entered by Elder Monge MD - 08/31/24 22:45> I personally examined patient and agree with AUT[employer]OBILE [employer] MECHANIC's plan of care. History of Present Illness *Admission Date: 08/31/24 *Reason for visit:: Malaise, shortness of breath, chest tightness *History of present illness: This patient who recently moved here over the last year and a half from [place], who has a history of stents greater than 15 years ago., He is a diabetic but a non-smoker but has high cholesterol. He began to have chest discomfort generalized malaise a slight bit of nausea today. Patient when admitted to the ER was diaphoretic felt fairly bad . His EKG compared to 1 from 2020 showed th at he had inverted T waves in most of his V leads. presently is resolved on examination in the emergency room. It is noted that he normally takes metoprolol and isosorbide but had run out. Had been a couple of days since he is taking either 1 was able to get the metoprolol from the pharmacy but not the isosorbide. Per the ER physician his heart score is a 7. ET scan of the lungs was done to check for PE but due to poor timing this could not be ruled out.. Chest x-ray did show some atelectasis in the posterior part of the left lung and slight bit in to the right lung. Also abdominal CT showed potential enteritis. Only other symptoms patient has is that he has had quite a bit of sinus congestion with drainage for a while since moving to [place] from [place]. I have discussed the patient with the ER physician, I do agree with his history of cardiac high cholesterol and these new symptoms and how bad he looked when he originally appeared in the emergency room that we need to have him admitted. Dr. Roy was consulted and patient information sent to Dr. Roy by ER provider. [facility] Disclaimer: The information contained in this section may have been updated after the patient was seen, as this information can be updated by other users. Medical History Diabetes mellitus, type 2 History of left heart catheterization (LHC) Hyperlipidemia Hypertension Surgical History History of heart artery stent Family History Other No significant family history Social History Smoking Status: Never smoker alcohol intake: never substance use type: denies use current occupational status: employed Travel in the last 8 weeks: None Review of Systems Review of Systems Review of systems:: pertinent systems reviewed and negative unless documented below Constitutional Constitutional: Reports as per HPI Comments: To note presently the patient looks pretty well very comfortable in the ER during the exam, this is totally different from when he arrived very diaphoretic and appeared to be in distress, this is per the ER provider that on taking report from Eyes Eyes: Reports as per HPI ENT Ears, Nose, Mouth, and Throat: Reports as per HPI and Reports nasal congestion *Cardiovascular Cardiovascular: Reports as per HPI and Reports chest pain at rest *Gastrointestinal Gastrointestinal: Reports as per HPI and Reports nausea *Genitourinary Genitourinary: Reports as per HPI *Musculoskeletal Musculoskeletal: Reports as per HPI and Reports muscle weakness Integumentary/Breasts Skin/Breast: Reports as per HPI *Neurologic Neurologic: Reports as per HPI Psychiatric Psychiatric: Reports as per HPI Endocrine Endocrine: Reports as per HPI Hematologic/Lymphatic Hematologic/Lymphatic: Reports as per HPI Allergic/Immunologic Allergic/Immunologic: Reports as per HPI Meds Home Medications and Allergies Home Medications ?Medication ?Instructions ?Recorded ?Confirmed ?Type atorvastatin 80 mg tablet (Lipitor) 80 mg PO DAILY High Cholesterol 05/30/23 05/20/24 History bupropion HCl 150 mg 24 hr tablet, 150 mg PO DAILY Depression 05/30/23 05/20/24 History extended release clopidogrel 75 mg tablet (Plavix) 75 mg PO DAILY Blood Thinner 05/30/23 05/20/24 History isosorbide mononitrate 30 mg 30 mg PO DAILY Chest Pain 05/30/23 05/20/24 History tablet,extended release 24 hr metformin 1,000 mg tablet 1,000 mg PO BIDWMEAL Diabetes 05/30/23 05/20/24 History sertraline 100 mg tablet 100 mg PO DAILY Depression 05/30/23 05/20/24 History lisinopril 20 1 tab PO DAILY #30 tabs 05/31/23 05/20/24 Rx mg-hydrochlorothiazide 12.5 mg tablet glimepiride 2 mg tablet 2 mg PO DAILY 03/26/24 05/20/24 History insulin glargine 100 60 unit SQ DAILY 03/26/24 05/20/24 History unit-lixisenatide 33 mcg/mL subcutaneous pen (Soliqua 100/33) insulin glargine 100 unit/mL (3 20 unit SQ DAILY 03/26/24 05/20/24 History mL) subcutaneous pen (Lantus Solostar U-100 Insulin) metoprolol succinate 100 mg 100 mg PO DAILY 03/26/24 05/20/24 History tablet,extended release 24 hr cetirizine 10 mg tablet mg PO 05/20/24 05/20/24 History omeprazole 40 mg capsule,delayed mg PO 05/20/24 05/20/24 History release New Prescriptions to Start Prescriptions: Allergies Allergy/AdvReac Type Severity Reaction Status Date / Time Penicillins Allergy Verified 05/20/24 08:39 Exam Data for Last 24 hours Vital signs and Labs for Last 24 Hours: Temp Pulse Resp BP Pulse Ox O2 Del Method 98.2 F 77 16 137/73 92 L Room Air 08/31/24 20:08 08/31/24 20:08 08/31/24 20:30 08/31/24 20:30 08/31/24 20:00 08/31/24 20:08 Laboratory Results - last 24 hr 08/31/24 17:09: Sodium 136, Potassium 4.3, Chloride 100, Carbon Dioxide 25, Anion Gap 15.3 H, BUN 24 H, Creatinine 1.10, Estimated Creat Clear 102, Estimated GFR 69, Est GFR ( Amer) 84, Glucose 236 H, Hemoglobin A1c 7.9 H , Lactate 1.5, Calcium 9.5, Magnesium 1.6, Total Bilirubin 0.9, AST 36, ALT 45, Alkaline Phosphatase 117, Troponin I 0.07 H, NT-Pro-B Natriuret Pep 87.2, Total Protein 7.8, Albumin 4.8, Globulin 3.0, Albumin/Globulin Ratio 1.6, Triglycerides 249 H, Cholesterol 217 H, LDL Cholesterol Direct 137.31 H, VLDL Cholesterol 50 H, HDL Cholesterol 47, Cholesterol/HDL Ratio 4.6 H, Lipase 54, TSH 3.05, Thyroxine (T4) 7.6, HIV 1&2 Antibody Rapid Nonreactive 08/31/24 17:15: VBG pH 7.35, VBG pCO2 45.4, VBG pO2 36.5, VBG HCO3 24.7, VBG Total CO2 26.1, VBG O2 Saturation 72.8 H, VBG Base Excess -0.9, VBG Lactic Acid 2.3 H 08/31/24 17:35: WBC 11.8 H, RBC 6.64 H, Hgb 18.5 H, Hct 54.5 H, MCV 82.1, MCH 27.8, MCHC 33.9, RDW 13.9, Plt Count 191, MPV 6.7 L, Neut % (Auto) 79.0, Lymph % (Auto) 9.8 L, [place] % (Auto) 8.3, Eos % (Auto) 2.3, Baso % (Auto) 0.7, Neut # (Auto) 9.3 H, Lymph # (Auto) 1.2, [place] # (Auto) 1.0, Eos # (Auto) 0.3, Baso # (Auto) 0.1, PT 10.2, INR 0.90, APTT 23.5 08/31/24 18:45: Urine Color Yellow, Urine Appearance Clear, Urine pH 5.5, Ur Specific [place] 1.010, Urine Protein Negative, Urine Glucose (UA) 1+, Urine Ketones Negative, Urine Blood Negative, Urine Nitrate Negative, Urine Bilirubin Negative, Urine Urobilinogen 0.2, Ur Leukocyte Esterase Negative, Urine RBC None, Urine WBC Occasional, Ur Squamous Epith Cells None, Urine Bacteria Trace I & O for Last 24 hours: Intake & Output 08/29/24 08/30/24 08/31/24 09/01/24 05:59 05:59 05:59 05:59 Weight 210 lb Radiology Reports for the Last 24 Hours: Have reviewed radiology report do find some atelectasis in the right lung posterior so the left slightly less than the right, abdominal films showed some thickening that could indicate mild colitis of the abdominal exam.. Constitutional Constitutional: no acute distress Comments: Presently the patient is sitting up he is comfortable he is nondiaphoretic he does not look to be in any distress. But noting from the ER physician this was quite different when he came in extremely diaphoretic and looking in distress *Routine HEENT Exam Head: Present normocephalic and atraumatic Eye: Present EOMI and PERRL ENT: Present mucous membranes moist, oropharynx clear and nares patent Comments: Due to the history of having congestion with drainage down the back of the throat examined and could not find any deficits or drainage at this time *Routine Neck Exam Neck: Present supple and full ROM Comments: Examination of the neck found no acute process Routine Chest/Breast/Axilla Exam Comments: Examination of the chest wall found equal symmetry no signs of tenderness no signs of injury *Routine Respiratory Exam Respiratory: Present CTA bilaterally, normal respiratory effort and able to speak in complete sentences Comments: Examination of the chest found completely normal exam *Routine Cardiovascular Exam Cardiovascular: Present RRR, Normal S1 and Normal S2 Comments: Patient has brisk capillary refill in both hands., Is no sign of edema anywhere on him. Examination of heart sounds perfectly normal with a very clear S1-S2 with a regular rate and rhythm *Routine Abdominal Exam Abdominal: Present soft and obese Comments: There was no tenderness found upon abdominal exam with palpation *Routine Rectal Exam Rectal:: deferred *Routine Genitalia Exam Genitalia:: deferred *Routine Extremities Exam Comments: Examination of extremities perfectly normal. No adverse signs were found. Patient is able to stand move walk without any difficulty or assistance Routine Back/Spine/Pelvis Exam Back/Spine: Present full ROM Comments: Examination of the back perfect exam there was no sign of any type of scoliosis or any type of injury no signs of swelling *Routine Skin Exam Skin: Present intact, warm and normal turgor *Routine Neurological Exam Neurological: Present alert, oriented X3, CN II-XII intact, normal reflexes, normal tone and normal speech Routine Psychiatric Exam Psychiatric: Present normal affect, normal thought process, cooperative, good insight and good judgment H&P: Result Impressions 1. Generalized malaise with chest discomfort, noted for history of stenting. Also noting that the patient had missed 2 of his cardiac medications for the past few days Imaging and Cardiology CT scan - abdomen: Status: image reviewed by me Additional comments: No acute findings possibly some early enteritis, but exam does not support this at this time CT scan - chest: Status: image reviewed by me Additional comments: Chest the timing was not correct to be able to completely rule out PE but the exam does not show any pulmonary embolism, was apprised from the exam though to see that there is atelectasis in the right lung especially posterior also a mild amount in the left lung. Assessment and Plan *Assessment and plan (1) Atelectasis of both lungs: Status: Acute Category: Medical Code(s): J98.11 - Atelectasis (2) Bowel wall thickening: Status: Acute Category: Medical Code(s): K63.9 - Disease of intestine, unspecified (3) Non-ST elevation [place] (NSTEMI): Status: Acute Category: Medical Code(s): I21.4 - Non-ST elevation (NSTEMI) myocardial infarction (4) Diabetes: Status: Acute Qualifiers: Diabetes mellitus type: type 2 Diabetes mellitus intermediate insulin use: without intermediate use Diabetes mellitus complication status: with hyperglycemia Qualified Code(s): E11.65 - Type 2 diabetes mellitus with hyperglycemia Category: Medical Code(s): E11.9 - Type 2 diabetes mellitus without complications (5) Chest pain: Status: Acute Qualifiers: Chest pain type: unspecified Qualified Code(s): R07.9 - Chest pain, unspecified Category: Medical Code(s): R07.9 - Chest pain, unspecified (6) Acute hyperglycemia: Status: Acute Category: Medical Code(s): R73.9 - Hyperglycemia, unspecified (7) Hyperlipidemia associated with type 2 diabetes mellitus: Status: Acute Category: Medical Code(s): E11.69 - Type 2 diabetes mellitus with other specified complication; E78.5 - Hyperlipidemia, unspecified Plan 1. Malaise with chest pain and nausea: After examining the patient's labs went over the CT scan and speaking with the ER provider I do agree that having the patient placed and and being seen by passport support associate is prudent. Plan will admit the patient to the floor Dr. Roy has been consulted. It has been probably more than 13 years since he had stents placed in [place]. Patient noted that he was told he had collateral circulation at that time. Patient is also a diabetic globin A1c greater than 7, significant hypercholesterolemia, but is a non- smoker. So plan is to place him on the floor will monitor him overnight for any changes, keep him n.p.o. past midnight, and have cardiology see him in the a.m.. 2. Diabetes mellitus: Will continue present meds and do before meals and at bedtime fingersticks will add sliding scale if needed. 3. Question atelectasis both lungs with possible bowel wall thickening: To continue to monitor that this might be some type of viral incident that has caused all the symptoms 4. Medication, since he has run out of medication have caused some of this incident to take place. Will make sure that his medicine is probably ordered before he leaves for discharge. .
[2024-08-31 20:42] LABS: Troponin I 0.06 ng/ml (0.00-0.034)
[2024-08-31] MEDS: PANTOPRAZOLE 40MG TABLET 40 MG PO (20:59)
[2024-08-31 21:24] LABS: Reflex Lactic Add Lactic Reflex
[2024-08-31 21:38] LABS: POC Glucose,Bedside 196 (70-110)
[2024-08-31 21:55] LABS: Lactic Acid Follow Up (RFLX 1) 1.2 mmol/L (0.7-2.1)
[2024-08-31 23:26] LABS: Troponin I 0.05 ng/ml (0.00-0.034)
[2024-09-01] VITALS (21 sets, daily range): BP systolic 106–169; BP diastolic 62–97; PULSE 65–89; RESP 16–20; TEMP 36.6–36.8; O2SAT 92–99; BMI 32.1
[2024-09-01 05:28] LABS: POC Glucose,Bedside 183 (70-110)
[2024-09-01 06:45] LABS: Alanine Aminotransferase 33 U/L (12-78); Albumin Level 3.8 g/dl (3.5-5.0); Albumin/Globulin Ratio 1.7 (1.1-1.8); Alkaline Phosphatase 93 U/L (38-126); Anion Gap 13.5 mEq/L (5-15); Aspartate Amino Transferase 26 U/L (17-59); Bilirubin,Total 0.9 mg/dl (0.2-1.3); Blood Urea Nitrogen 24 mg/dl (9-20); Calcium 8.5 mg/dl (8.4-10.2); Carbon Dioxide 23 mmol/L (22.0-30.0); Chloride 104 mmol/L (98-107); Creatinine Clearance Estimated 122 mL/min (50-200); Estimated Glomerular Filt Rate 88 ml/min (>60); GFR (African American) 106 ML/MIN (>60); Globulin 2.3 g/dL (1.3-3.2); Glucose 189 mg/dl (74-100); Magnesium 1.6 mg/dl (1.6-2.3); Potassium 3.5 mmoL/L (3.5-5.1); Sodium 137 mmol/L (136-145); Total Protein,Serum 6.1 g/dl (6.3-8.2)
--- NOTE | 2024-09-01 07:36 | HMH.PHAINT1 ---
Pharmacy Intervention Comments: home medications verified via outpatient pharmacy and patient interview
--- NOTE | 2024-09-01 07:40 | CA_ITS ---
APPROVED REPORT EXAM: Comprehensive 2D, Doppler, and color-flow Echocardiogram Data Collection Technician: Nancy Murphy RVT Ht: 5 ft 6 in Wt: 204lbs BSA: 2.02 BP: 137/73 mmHg Indications: NSTEMI,DM,HTN,CAD,HLD,SOA 2D Dimensions IVSd 1.82 cm M: 0.6-1.2 LVEF (Visual) 74.90 % PWd 1.40 cm M: 0.6 - 1.2 LA Volume 54.00 mL LVDd 2.62 cm M: 4.2 - 5.9 LA Volume Index 26.73 mL/m2 (M/F) 16-34 LVDs 1.52 cm M: 2.5 - 4.0 M-Mode Dimensions LA Diam 4.02 cm (1.9-4.0) TAPSE 2.42 (<1.7) LV Diastology E Decel Time 173 (160-240 msec) E/A Ratio 0.9 Aortic Valve ADITYA Index 1.67 cm2/m2 AoV Peak Armin. 116.0 (50-130 cm/s) AO Peak GR. 5.40 mmHg AO Mean GR. 3.70 (<5 mmHg) AO VTI 22.8 (18-25 cm) ADITYA (VTI) 3.46 (2.5-4.5 cm2) Mitral Valve MV E Max Armin. 61.0 (40-130 cm/s) MV A Velocity 69.0 (40-130 cm/s) E/A Ratio 0.88 MV PHT 51.0 ms Pulmonary Valve PV Peak Velocity 80.0 (50-150 cm/s) Left Ventricle The left ventricle is normal size. The left ventricular systolic function is normal. The left ventricular ejection fraction is within the normal range. There is marked increase in LV wall thickness. IVSD is 1.4 cm. There is normal LV segmental wall motion. Diastolic function is indeterminate. LVEF is 60%. Right Ventricle The right ventricle is normal size. The right ventricular systolic function is normal. Atria The left atrium size is normal. The right atrium size is normal.. There is no Doppler evidence of interatrial shunt. Aortic Valve The aortic valve is mildly thickened. There is no aortic valvular stenosis. Trace aortic regurgitation. Mitral Valve The mitral valve leaflets are mildly thickened. No evidence of mitral valve stenosis. Trace mitral regurgitation. Tricuspid Valve The tricuspid valve leaflets are thin and pliable. Trace tricuspid regurgitation. There is insufficient TR jet to estimate RVSP. Pulmonic Valve The pulmonary valve is normal in structure. Trace pulmonic regurgitation. Great Vessels The aortic root is normal in size. The ascending aorta is normal in size. IVC is normal in size and collapses >50% with inspiration. Pericardium There is no pericardial effusion. Other Information Study Quality: Fair Conclusion Normal biventricular systolic function. Marked increase in LV wall thickness. IVSD is 1.4 cm. No significant valvular stenosis or regurgitation. In the setting of marked asymmetric increase in LV wall thickness, further evaluation for HCM is recommended with cardiac MRI (HCM protocol). Electronically signed by : Eugenie Silver MD 09/01/2024 22:47:15
--- NOTE | 2024-09-01 07:52 | P.CONPHA_ITS ---
[facility] Heparin Dosing Demographic Data Admission date:: 09/01/24 Date: 09/01/24 Time: 07:53 Allergies Allergy/AdvReac Type Severity Reaction Status Date / Time Penicillins Allergy Verified 05/20/24 08:39 Height: 1.7 m Weight: 93 kg Indication Medication therapy:: Heparin Current Active Problems (Updated 09/01/24 @ 10:22 by Slime Ramirez APRN) Coronary artery disease (Acute) Hyperlipidemia associated with type 2 diabetes mellitus (Acute) Bowel wall thickening (Acute) Atelectasis of both lungs (Acute) Non-ST elevation [place] (NSTEMI) (Acute) Diabetes (Acute) Chest pain (Acute) Acute hyperglycemia (Acute) CVA?: No Bleeding problem?: No Kidney disease?: No IA?: No Desired PTT range:: 50-75 seconds Labs Anticoagulation Lab Results:: 08/31/24 17:35 Hgb 18.5 H Hct 54.5 H Plt Count 191 Monitoring Dose Monitor 1: Date: 09/01/24 Time: 07:54 PTT Result:: 23.5 Infusion Rate:: HEPARIN 4000 UNIT BOLUS, THEN HEPARIN 1000 UNITS/HR (20 ML/HR) Dose Monitor 2: Date: 09/01/24 Time: 13:00 PTT Result:: heparin drip stopped post cath Core Measures Is INR > or = 2 at discharge?: No Most Recent Labs:: Laboratory Results - last 24 hr 08/31/24 17:09: Sodium 136, Potassium 4.3, Chloride 100, Carbon Dioxide 25, Anion Gap 15.3 H, BUN 24 H, Creatinine 1.10, Estimated Creat Clear 102, Estimated GFR 69, Est GFR ( Amer) 84, Glucose 236 H, Hemoglobin A1c 7.9 H , Lactate 1.5, Calcium 9.5, Magnesium 1.6, Total Bilirubin 0.9, AST 36, ALT 45, Alkaline Phosphatase 117, Troponin I 0.07 H, NT-Pro-B Natriuret Pep 87.2, Total Protein 7.8, Albumin 4.8, Globulin 3.0, Albumin/Globulin Ratio 1.6, Triglycerides 249 H, Cholesterol 217 H, LDL Cholesterol Direct 137.31 H, VLDL Cholesterol 50 H, HDL Cholesterol 47, Cholesterol/HDL Ratio 4.6 H, Lipase 54, TSH 3.05, Thyroxine (T4) 7.6, HIV 1&2 Antibody Rapid Nonreactive 08/31/24 17:15: VBG pH 7.35, VBG pCO2 45.4, VBG pO2 36.5, VBG HCO3 24.7, VBG Total CO2 26.1, VBG O2 Saturation 72.8 H, VBG Base Excess -0.9, VBG Lactic Acid 2.3 H 08/31/24 17:35: WBC 11.8 H, RBC 6.64 H, Hgb 18.5 H, Hct 54.5 H, MCV 82.1, MCH 27.8, MCHC 33.9, RDW 13.9, Plt Count 191, MPV 6.7 L, Neut % (Auto) 79.0, Lymph % (Auto) 9.8 L, [place] % (Auto) 8.3, Eos % (Auto) 2.3, Baso % (Auto) 0.7, Neut # (Auto) 9.3 H, Lymph # (Auto) 1.2, [place] # (Auto) 1.0, Eos # (Auto) 0.3, Baso # (Auto) 0.1, PT 10.2, INR 0.90, APTT 23.5 08/31/24 18:45: Urine Color Yellow, Urine Appearance Clear, Urine pH 5.5, Ur Specific [place] 1.010, Urine Protein Negative, Urine Glucose (UA) 1+, Urine Ketones Negative, Urine Blood Negative, Urine Nitrate Negative, Urine Bilirubin Negative, Urine Urobilinogen 0.2, Ur Leukocyte Esterase Negative, Urine RBC None, Urine WBC Occasional, Ur Squamous Epith Cells None, Urine Bacteria Trace 08/31/24 20:15: Troponin I 0.06 H 08/31/24 21:09: POC Glucose 196 H 08/31/24 21:40: Lactate 1.2 08/31/24 23:00: Troponin I 0.05 H 09/01/24 05:21: POC Glucose 183 H 09/01/24 06:02: Sodium 137, Potassium 3.5, Chloride 104, Carbon Dioxide 23, Anion Gap 13.5, BUN 24 H, Creatinine 0.90, Estimated Creat Clear 122, Estimated GFR 88, Est GFR ( Amer) 106 D, Glucose 189 H, Calcium 8.5, Magnesium 1.6, Total Bilirubin 0.9, AST 26 D, ALT 33 D, Alkaline Phosphatase 93, Total Protein 6.1 L, Albumin 3.8 D, Globulin 2.3, Albumin/Globulin Ratio 1.7 If INR was < than 2.0 why was therapy stopped?: heparin drip stopped Were Heparin and Warfarin started on the same day?: No If not, why?: heparin drop stopped
[2024-09-01 07:53] LABS: Basophils # 0.1 K/mm3 (0-0.2); Basophils % 0.6 % (0.1-2.0); Eosinophils # 0.4 K/mm3 (0.0-0.4); Hematocrit 50.4 % (42.0-52.0); Hemoglobin 17.5 g/dL (14.1-18.0); Lymphocytes % 20.7 % (10-50); Mean Corpuscular HGB Conc 34.8 g/dL (31.8-35.4); Mean Corpuscular Hemoglobin 28.6 pg (27.0-31.2); Mean Corpuscular Volume 82.1 fl (80-94); Mean Platelet Volume 7.1 fl (7.4-10.4); Monocytes # 1.2 K/mm3 (0.1-1.0); Monocytes % 12.6 % (1.7-9.3); Neutrophils % 62.1 % (37.0-80.0); Platelet Count 168 K/mm3 (142-424); Red Blood Count 6.14 M/mm3 (4.60-6.20); Red Cell Distribution Width 14.1 % (11.5-17.5); White Blood Count 9.6 K/mm3 (4.8-10.8)
[2024-09-01] MEDS: HEPARIN SODIUM,PORCINE/D5W 500 ML 20 UNIT IV (08:08)
[2024-09-01] MEDS: LISINOPRIL 20MG TABLET 20 MG PO (08:09)
[2024-09-01] MEDS: CLOPIDOGREL 75MG TAB 75 MG PO (08:09)
[2024-09-01] MEDS: buPROPion HCl SR 150MG TAB 150 MG PO (08:09)
[2024-09-01] MEDS: SERTRALINE 100MG TABLET 100 MG PO (08:09)
[2024-09-01] MEDS: METOPROLOL SUCCINATE XL 100MG TABLET 100 MG PO (08:09)
[2024-09-01] MEDS: LORATADINE 10MG TABLET 10 MG PO (08:09)
[2024-09-01] MEDS: hydroCHLOROthiazide 12.5MG CAPSULE 12.5 MG PO (08:09)
[2024-09-01] MEDS: GLIMEPIRIDE 2 MG TABLET PO (08:09)
[2024-09-01] MEDS: ISOSORBIDE MONO 30MG TAB.ER.24H 30 MG PO (08:09)
[2024-09-01] MEDS: HEPARIN SODIUM 5,000 UNIT/ML VIAL 4000 UNIT IV (08:09)
[2024-09-01] MEDS: ASPIRIN 81MG CHEWABLE TABLET 81 MG PO (08:09)
[2024-09-01 08:22] LABS: PTT Heparin (inpatient only) 24.6 Seconds (50-75)
--- NOTE | 2024-09-01 08:25 | PC.NURSE ---
Pharmacy called this RN to inform me that the heparin drip needed no adjustments d/t pt's ptt being 24.6. no new orders at this time.
--- NOTE | 2024-09-01 09:25 | IR_ITS ---
APPROVED REPORT Patient Location: Inpatient PROCEDURES Left heart catheterization Left ventriculogram Selective coronary angiogram Drug-eluting stent deployment to the mid LAD Drug-eluting stent deployment to the ostial proximal circumflex artery INDICATION Acute non-ST elevation myocardial infarction, Coronary artery disease Informed consent was obtained prior to the procedure. COMPLICATIONS NONE Estimated Blood Loss: LESS THAN 10 ML TECHNIQUE One percent lidocaine used to anesthetize the right anterior aspect of the wrist. The right radial artery was accessed via the Seldinger technique. A 6 Kinyarwanda sheath was placed in the right radial artery. 2.5 mg of Verapamil, 800 mcg of nitroglycerin, 1mg Lidocaine and 5000 U Heparin were given through the arterial sheath. The 6 Kinyarwanda JL 3 guide catheter was also used to perform left heart catheterization, left ventriculogram and selective coronary angiogram. At the end the diagnostic angiogram therapeutic heparin was administered giving a therapeutic ACT and the guide catheter was placed in the left main artery followed by a Choice PT extra-support wire placed on the LAD. A 3 mm x 15 mm Harry frontier stent was deployed at 20 jean in the mid LAD reducing the stenosis to 0%. BLADIMIR II flow was present at beginning the procedure with BLADIMIR-3 flow at the end of the procedure. Following this an additional wire was placed into the circumflex artery specifically into the first obtuse marginal artery. A 3 mm x 12 mm Ailey frontier stent was placed in the proximal circumflex artery extending to the proximal obtuse marginal artery and then deployed at 20 jean. An additional 3 mm x 8 mm Ailey frontier stent was placed proximal to the for stent yet still overlapping and placed into the ostial segment of the circumflex artery and then deployed at 24 jena. Excellent angiograph results were obtained with BLADIMIR-3 flow being present before and after the procedure the end of the procedure the apparatus was removed the sheath was removed and hemostasis was achieved using TR banding patient was transferred to the postop putting in stable condition ANGIOGRAPHIC RESULTS The left main artery Normal The left anterior descending artery Is proximally normal followed by mid vessel concentric 70% stenosis immediately after a large first diagonal artery The circumflex artery Gives rise to a ramus intermedius which is ostially occluded within the stent. The ramus intermedius fills via left to left collaterals. The ostial proximal circumflex artery has 70% concentric in-stent restenosis and extends into a medium sized first obtuse marginal artery The right coronary artery Is dominant and has proximal concentric 40% stenosis with 10 to 20% mid vessel stenosis and a distal 30% stenosis The SUNSHINE ventriculogram reveals Normal 65% The left ventricular end-diastolic pressure Severely elevated at 30 mmHg IMPRESSION Severe mid LAD disease as described above successful stenting reducing lesion to 0% with 1 drug-eluting stent Chronically occluded ramus intermedius which fills via left to left collaterals Severe disease in a proximal circumflex artery with successful stenting reducing the lesion to 0% with 2 drug-eluting stents Moderate proximal and mild to moderate distal dominant right coronary disease Normal ejection fraction Severely elevated LVEDP PLAN 1. Dual antiplatelet therapy 2. Cardiac rehabilitation 3. Avoidance of tobacco products 4. LDL less than 55 to be achieved with high intensity statin 5. Aggressive risk factor modification Electronically signed by : David Roy MD 09/01/2024 13:21:47
--- NOTE | 2024-09-01 10:06 | P.CONCA_ITS ---
History of Present Illness History of Present Illness Consult date: 09/01/24 Consult reason: chest pain Chief complaint: chest pain History of present illness: This is a 53-year-old white male with past medical history of coronary artery disease status post stenting greater than 10 years ago, hypertension, hyperlipidemia and diabetes mellitus who presented to emergency department yesterday with complaints of palpitations, chest discomfort, nausea and diaphoresis. Of note, patient had been without metoprolol and Imdur. Patient reports a history of coronary artery disease with stenting greater than 10 years ago. Patient does endorse intermittent episodes of chest pressure at rest. Upon presentation to emergency department initial EKG showed normal sinus rhythm at a rate of 84 with nonspecific T wave abnormalities noted which are new from 2020. Labs as follow: WBC 9.6, hemoglobin 17.5, sodium 137, potassium 3.5, creatinine 0.9, troponin 0.07 trending down to 0.05. Chest x-ray was negative for acute findings. CTA abdomen pelvis showed nonspecific findings of enteritis. Chest CTA could not exclude pulmonary emboli due to optimized timing of contrast for thoracic aorta and not for the pulmonary arteries. No aortic aneurysm or dissection was noted. Patient was admitted for further evaluation for chest pain and for cardiology consult. This morning patient is resting comfortably, denies chest pain or shortness of breath. Vitals remain stable. Echocardiogram is pending. [facility] Disclaimer: The information contained in this section may have been updated after the patient was seen, as this information can be updated by other users. Medical History Diabetes mellitus, type 2 History of left heart catheterization (LHC) Hyperlipidemia Hypertension Surgical History History of heart artery stent Family History Other No significant family history Social History (Updated 08/31/24 @ 21:28 by Jaye Lobo RN) Smoking Status: Never smoker alcohol intake: never substance use type: denies use current occupational status: employed Travel in the last 8 weeks: None Review of Systems Review of Systems Review of systems:: pertinent systems reviewed and negative unless documented below *Cardiovascular Cardiovascular: Reports chest pain at rest and Reports dyspnea Comments: Nausea and diaphoresis *Respiratory Respiratory: Reports dyspnea *Neurologic Neurologic: Reports as per HPI Exam Data for Last 24 hours Vital signs and Labs for Last 24 Hours: Temp Pulse Resp BP Pulse Ox O2 Del Method 98.1 F 73 16 122/81 95 Room Air 09/01/24 08:00 09/01/24 08:00 09/01/24 08:00 09/01/24 08:00 09/01/24 08:00 09/01/24 09:00 Laboratory Results - last 24 hr 08/31/24 17:09: Sodium 136, Potassium 4.3, Chloride 100, Carbon Dioxide 25, Anion Gap 15.3 H, BUN 24 H, Creatinine 1.10, Estimated Creat Clear 102, Estimated GFR 69, Est GFR ( Amer) 84, Glucose 236 H, Hemoglobin A1c 7.9 H , Lactate 1.5, Calcium 9.5, Magnesium 1.6, Total Bilirubin 0.9, AST 36, ALT 45, Alkaline Phosphatase 117, Troponin I 0.07 H, NT-Pro-B Natriuret Pep 87.2, Total Protein 7.8, Albumin 4.8, Globulin 3.0, Albumin/Globulin Ratio 1.6, Triglycerides 249 H, Cholesterol 217 H, LDL Cholesterol Direct 137.31 H, VLDL Cholesterol 50 H, HDL Cholesterol 47, Cholesterol/HDL Ratio 4.6 H, Lipase 54, TSH 3.05, Thyroxine (T4) 7.6, HIV 1&2 Antibody Rapid Nonreactive 08/31/24 17:15: VBG pH 7.35, VBG pCO2 45.4, VBG pO2 36.5, VBG HCO3 24.7, VBG Total CO2 26.1, VBG O2 Saturation 72.8 H, VBG Base Excess -0.9, VBG Lactic Acid 2.3 H 08/31/24 17:35: WBC 11.8 H, RBC 6.64 H, Hgb 18.5 H, Hct 54.5 H, MCV 82.1, MCH 27.8, MCHC 33.9, RDW 13.9, Plt Count 191, MPV 6.7 L, Neut % (Auto) 79.0, Lymph % (Auto) 9.8 L, [place] % (Auto) 8.3, Eos % (Auto) 2.3, Baso % (Auto) 0.7, Neut # (Auto) 9.3 H, Lymph # (Auto) 1.2, [place] # (Auto) 1.0, Eos # (Auto) 0.3, Baso # (Auto) 0.1, PT 10.2, INR 0.90, APTT 23.5 08/31/24 18:45: Urine Color Yellow, Urine Appearance Clear, Urine pH 5.5, Ur Specific [place] 1.010, Urine Protein Negative, Urine Glucose (UA) 1+, Urine Ketones Negative, Urine Blood Negative, Urine Nitrate Negative, Urine Bilirubin Negative, Urine Urobilinogen 0.2, Ur Leukocyte Esterase Negative, Urine RBC None, Urine WBC Occasional, Ur Squamous Epith Cells None, Urine Bacteria Trace 08/31/24 20:15: Troponin I 0.06 H 08/31/24 21:09: POC Glucose 196 H 08/31/24 21:40: Lactate 1.2 08/31/24 23:00: Troponin I 0.05 H 09/01/24 05:21: POC Glucose 183 H 09/01/24 06:02: WBC 9.6, RBC 6.14, Hgb 17.5, Hct 50.4, MCV 82.1, MCH 28.6, MCHC 34.8, RDW 14.1, Plt Count 168, MPV 7.1 L, Neut % (Auto) 62.1, Lymph % (Auto) 20.7, [place] % (Auto) 12.6 H, Eos % (Auto) 4.0, Baso % (Auto) 0.6, Neut # (Auto) 6.0, Lymph # (Auto) 2.0, [place] # (Auto) 1.2 H, Eos # (Auto) 0.4, Baso # (Auto) 0.1, Sodium 137, Potassium 3.5, Chloride 104, Carbon Dioxide 23, Anion Gap 13.5, BUN 24 H, Creatinine 0.90, Estimated Creat Clear 122, Estimated GFR 88, Est GFR ( Amer) 106 D, Glucose 189 H, Calcium 8.5, Magnesium 1.6, Total Bilirubin 0.9, AST 26 D, ALT 33 D, Alkaline Phosphatase 93, Total Protein 6.1 L, Albumin 3.8 D, Globulin 2.3, Albumin/Globulin Ratio 1.7 09/01/24 08:00: APTT 24.6 L I & O for Last 24 hours: Intake & Output 08/29/24 08/30/24 08/31/24 09/01/24 23:59 23:59 23:59 23:59 Intake Total 410 / 410 Output Total 0 / 0 Balance 410 / 410 Weight 205 lb 205 lb 0.478 oz Constitutional Constitutional: no acute distress *Routine Respiratory Exam Respiratory: Present CTA bilaterally and symmetric chest movement *Routine Cardiovascular Exam Cardiovascular: Present RRR, Normal S1 and Normal S2 *Routine Abdominal Exam Abdominal: Present soft and normoactive bowel sounds; Absent tenderness *Routine Extremities Exam Extremities: Present full ROM and normal capillary refill; Absent edema *Routine Skin Exam Skin: Present intact, dry and warm Detailed Neck Exam: Thyroids Thyroid: Absent bruit Meds Home Medications and Allergies Home Medications ?Medication ?Instructions ?Recorded ?Confirmed ?Type atorvastatin 80 mg tablet (Lipitor) 80 mg PO HS 05/30/23 09/01/24 History bupropion HCl 150 mg 24 hr tablet, 150 mg PO DAILY 05/30/23 09/01/24 History extended release clopidogrel 75 mg tablet (Plavix) 75 mg PO DAILY 05/30/23 09/01/24 History isosorbide mononitrate 30 mg 30 mg PO DAILY 05/30/23 09/01/24 History tablet,extended release 24 hr metformin 1,000 mg tablet 1,000 mg PO BIDWMEAL 05/30/23 09/01/24 History sertraline 100 mg tablet 100 mg PO DAILY 05/30/23 09/01/24 History glimepiride 2 mg tablet 2 mg PO DAILY 03/26/24 09/01/24 History insulin glargine 100 60 unit SQ AM 03/26/24 09/01/24 History unit-lixisenatide 33 mcg/mL subcutaneous pen (Soliqua 100/33) insulin glargine 100 unit/mL (3 30 unit SQ HS 03/26/24 09/01/24 History mL) subcutaneous pen (Lantus Solostar U-100 Insulin) metoprolol succinate 100 mg 100 mg PO DAILY 03/26/24 09/01/24 History tablet,extended release 24 hr cetirizine 10 mg tablet 10 mg PO DAILY 05/20/24 09/01/24 History omeprazole 40 mg capsule,delayed 40 mg PO DAILY 05/20/24 09/01/24 History release famotidine 40 mg tablet 40 mg PO DAILY 08/31/24 09/01/24 History fluticasone propionate 50 2 spray intranasal DAILY 09/01/24 09/01/24 History mcg/actuation nasal spray,suspension lisinopril 20 2 tab PO DAILY 09/01/24 09/01/24 History mg-hydrochlorothiazide 12.5 mg tablet New Prescriptions to Start Prescriptions: Allergies Allergy/AdvReac Type Severity Reaction Status Date / Time Penicillins Allergy Verified 05/20/24 08:39 Assessment and Plan *Assessment and plan (1) Non-ST elevation DE (NSTEMI): Status: Acute Category: Medical Code(s): I21.4 - Non-ST elevation (NSTEMI) myocardial infarction (2) Diabetes: Status: Acute Qualifiers: Diabetes mellitus complication status: with hyperglycemia Diabetes mellitus senior living insulin use: without senior living use Diabetes mellitus type: type 2 Qualified Code(s): E11.65 - Type 2 diabetes mellitus with hyperglycemia Category: Medical Code(s): E11.9 - Type 2 diabetes mellitus without complications (3) Bowel wall thickening: Status: Acute Category: Medical Code(s): K63.9 - Disease of intestine, unspecified (4) Hyperlipidemia associated with type 2 diabetes mellitus: Status: Acute Category: Medical Code(s): E11.69 - Type 2 diabetes mellitus with other specified complication; E78.5 - Hyperlipidemia, unspecified (5) Coronary artery disease: Status: Acute Category: Medical Code(s): I25.10 - Atherosclerotic heart disease of [place] coronary artery without angina pectoris Plan History of coronary artery disease status post stenting NSTEMI Troponin 0.07 trending down 0.05 New nonspecific T wave inversion noted on EKG Echocardiogram pending Continue heparin drip, DAPT therapy with aspirin and Plavix, Lipitor and beta-osmani Will proceed with left heart catheterization for further evaluation of coronary artery disease. Discussed risk versus benefits with patient he is agreeable to proceed. Hypertension Continue lisinopril, HCTZ, Toprol Hyperlipidemia LDL goal less than 55, LDL 137.3. Start Lipitor 80 mg p.o. daily Diabetes mellitus Defer to primary service. Consider addition of Jardiance and/or Ozempic at discharge. CV summary 09/01/2024: We will proceed with left heart catheterization for further evaluation of coronary artery disease. Echocardiogram is pending. Cardiac meds: Heparin drip Aspirin 81 mg p.o. daily Plavix 75 mg p.o. daily Lipitor 80 mg p.o. daily Hydrochlorothiazide 12.5 mg p.o. daily Lisinopril 20 mg p.o. daily Toprol 100 mg p.o. daily Imdur 30 mg p.o. daily
[2024-09-01 11:24] LABS: POC Glucose,Bedside 209 (70-110)
[2024-09-01] MEDS: MAGNESIUM SULFATE IN WATER 2 GM/50 ML PIGGYBACK IV ×2 (11:54→14:01)
[2024-09-01] MEDS: LIDOCAINE 1% 10ML MDV 20 ML IJ (12:37)
[2024-09-01] MEDS: VERAPAMIL 2.5MG/ML 2ML VIAL 2.5 MG IV (12:37)
[2024-09-01] MEDS: diphenhydrAMINE 50MG/ML VIAL 50 MG IV (12:37)
[2024-09-01] MEDS: HEPARIN 1,000 UNITS/500ML NS (CATH LAB) 3000 UNIT IV (12:38)
[2024-09-01] MEDS: HEPARIN 1,000 UNITS/ML 10ML VIAL (CATH LAB) 10000 UNIT IV (12:38)
[2024-09-01] MEDS: 0.9 % SODIUM CHLORIDE 500 ML 25 ML IV (12:38)
[2024-09-01] MEDS: NITROGLYCERIN 800MCG/8ML SYR (CATH LAB) 800 MCG IA (12:38)
[2024-09-01] MEDS: FENTANYL 100MCG/2ML VIAL 50 MCG IV (12:39)
[2024-09-01] MEDS: MIDAZOLAM HCL 1MG/ML 5ML VIAL 1 MG IV (12:39)
--- OUTSIDE RECORDS SUMMARY | 2024-09-01 13:30 | XMS_ITS | Patient Health Record ---
Author Organization [facility] Address [address] [place] [address] Care Team Providers Care Locker Room Supervisor Name Role Phone Campos Ahn Primary Care Provider Campos Ahn Unavailable Unavailable Allergies Allergen (clinical drug ingredient) Drug/Non Drug Allergy documented on EMR Reaction Allergy Type Onset Date Status penicillin hives Drug Allergy Active Results Component Value Reference Range Notes HEMOGLOBIN A1c (496) Reviewed date:06/30/2024 09:30:43 AM Interpretation: Performing Lab:[facility], [facility] [id number] [facility] HospitalIwqxIY[address] Amadou Gleason Notes/Report: NON-FASTING; NON-FASTING; NON-FASTING FASTING:YES FASTING: YES HEMOGLOBIN A1c 9.0 <5.7 % of total Hgb For someone without known diabetes, a hemoglobin A1c value of 6.5% or greater indicates that they may have diabetes and this should be confirmed with a follow-up test. For someone with known diabetes, a value <7% indicates that their diabetes is well controlled and a value greater than or equal to 7% indicates suboptimal control. A1c targets should be individualized based on duration of diabetes, age, comorbid conditions, and other considerations. Currently, no consensus exists regarding use of hemoglobin A1c for diagnosis of diabetes for children. This test was performed on the Malcom hope c503 platform. Effective 12/19/23, a change in test platforms from the Diaz Cnc Lathe Machine Operator to the Malcom hope c503 may have shifted HbA1c results compared to historical results. Based on laboratory validation testing conducted at [facility], the Malcom platform relative to the Diaz platform had an average increase in HbA1c value of < or = 0.3%. This difference is within accepted variability established by the National Glycohemoglobin Standardization Program. Note that not all individuals will have had a shift in their results and direct comparisons between historical and current results for testing conducted on different platforms is not recommended. COMPREHENSIVE METABOLIC PANE L (73784) Reviewed date:06/30/2024 09:30:43 AM Interpretation: Performing Lab:[facility] [id number] [facility], [facility] HospitalLgmsLP[address] Amadou Gleason Notes/Report: NON-FASTING; NON-FASTING; NON-FASTING FASTING:YES FASTING: YES GLUCOSE 76 65-99 mg/dL Fasting reference interval UREA NITROGEN (BUN) 12 7-25 mg/dL CREATININE 0.82 0.70-1.30 mg/dL EGFR 104 > OR = 60 mL/min/1.73m2 BUN/CREATININE RATIO SEE NOTE: 6-22 (calc) Not Reported: BUN and Creatinine are within reference range. SODIUM 141 135-146 mmol/L POTASSIUM 4.0 3.5-5.3 mmol/L CHLORIDE 104 98-110 mmol/L CARBON DIOXIDE 27 20-32 mmol/L CALCIUM 9.5 8.6-10.3 mg/dL PROTEIN, TOTAL 6.7 6.1-8.1 g/dL ALBUMIN 4.5 3.6-5.1 g/dL GLOBULIN 2.2 1.9-3.7 g/dL (calc) ALBUMIN/GLOBULIN RATIO 2.0 1.0-2.5 (calc) BILIRUBIN, TOTAL 0.4 0.2-1.2 mg/dL ALKALINE PHOSPHATASE 105 35-144 U/L AST 15 10-35 U/L ALT 22 9-46 U/L LIPID PANEL, STANDARD (7600) Reviewed date:06/30/2024 09:30:43 AM Interpretation: Performing Lab:[facility] [id number] [facility], [facility] HospitalBfqgHB[address] Amadou Gleason Notes/Report: NON-FASTING; NON-FASTING; NON-FASTING FASTING:YES FASTING: YES CHOLESTEROL, TOTAL 241 <200 mg/dL HDL CHOLESTEROL 46 > OR = 40 mg/dL TRIGLYCERIDES 267 <150 mg/dL If a non-fasting specimen was collected, consider repeat triglyceride testing on a fasting specimen if clinically indicated. Anabel et al. J. of Clin. Lipidol. 2015;9:129-169. LDL-CHOLESTEROL 151 Reference range: <100 Desirable range <100 mg/dL for primary prevention; <70 mg/dL for patients with CHD or diabetic patients with > or = 2 CHD risk factors. LDL-C is now calculated using the Agustin calculation, which is a validated novel method providing better accuracy than the Friedewald equation in the estimation of LDL-C. Myles SS et al. ASHA. 2013;310(19): 2681-5481 (http://education.CloudCover/faq/UAQ193) CHOL/HDLC RATIO 5.2 <5.0 (calc) NON HDL CHOLESTEROL 195 <130 mg/dL (calc) For patients with diabetes plus 1 major ASCVD risk factor, treating to a non-HDL-C goal of <100 mg/dL (LDL-C of <70 mg/dL) is considered a therapeutic option. HEMOGLOBIN A1c (496) Reviewed date:10/22/2023 01:36:23 PM Interpretation: Performing Lab:[facility]Spotzere1355 [facility]teSt[facility], SpotzerAivrFD[address] Amadou Gleason Notes/Report: NON-FASTING; NON-FASTING; NON-FASTING FASTING:YES FASTING: YES HEMOGLOBIN A1c 9.0 <5.7 % of total Hgb For someone without known diabetes, a hemoglobin A1c value of 6.5% or greater indicates that they may have diabetes and this should be confirmed with a follow-up test. For someone with known diabetes, a value <7% indicates that their diabetes is well controlled and a value greater than or equal to 7% indicates suboptimal control. A1c targets should be individualized based on duration of diabetes, age, comorbid conditions, and other considerations. Currently, no consensus exists regarding use of hemoglobin A1c for diagnosis of diabetes for children. COMPREHENSIVE METABOLIC PANE L (49547) Reviewed date:10/22/2023 01:36:23 PM Interpretation: Performing Lab:[facility]Spotzere1355 [facility], SpotzerKwlcXR[address] Amadou Gleason Notes/Report: NON-FASTING; NON-FASTING; NON-FASTING FASTING:YES FASTING: YES GLUCOSE 129 65-99 mg/dL Fasting reference interval For someone without known diabetes, a glucose value >125 mg/dL indicates that they may have diabetes and this should be confirmed with a follow-up test. UREA NITROGEN (BUN) 13 7-25 mg/dL CREATININE 0.71 0.70-1.30 mg/dL EGFR 109 > OR = 60 mL/min/1.73m2 BUN/CREATININE RATIO SEE NOTE: 6-22 (calc) Not Reported: BUN and Creatinine are within reference range. SODIUM 139 135-146 mmol/L POTASSIUM 3.9 3.5-5.3 mmol/L CHLORIDE 101 98-110 mmol/L CARBON DIOXIDE 29 20-32 mmol/L CALCIUM 9.7 8.6-10.3 mg/dL PROTEIN, TOTAL 6.8 6.1-8.1 g/dL ALBUMIN 4.8 3.6-5.1 g/dL GLOBULIN 2.0 1.9-3.7 g/dL (calc) ALBUMIN/GLOBULIN RATIO 2.4 1.0-2.5 (calc) BILIRUBIN, TOTAL 0.6 0.2-1.2 mg/dL ALKALINE PHOSPHATASE 98 35-144 U/L AST 18 10-35 U/L ALT 33 9-46 U/L LIPID PANEL, STANDARD (7600) Reviewed date:10/22/2023 01:36:23 PM Interpretation: Performing Lab:[facility], [facility], [facility] HospitalTpmiUU[address] Amadou Gleason Notes/Report: NON-FASTING; NON-FASTING; NON-FASTING FASTING:YES FASTING: YES CHOLESTEROL, TOTAL 137 <200 mg/dL HDL CHOLESTEROL 40 > OR = 40 mg/dL TRIGLYCERIDES 130 <150 mg/dL LDL-CHOLESTEROL 76 Reference range: <100 Desirable range <100 mg/dL for primary prevention; <70 mg/dL for patients with CHD or diabetic patients with > or = 2 CHD risk factors. LDL-C is now calculated using the Agustin calculation, which is a validated novel method providing better accuracy than the Friedewald equation in the estimation of LDL-C. Myles SS et al. ASHA. 2013;310(19): 3464-2768 (http://education.[employer].DvineWave/faq/MZA067) CHOL/HDLC RATIO 3.4 <5.0 (calc) NON HDL CHOLESTEROL 97 <130 mg/dL (calc) For patients with diabetes plus 1 major ASCVD risk factor, treating to a non-HDL-C goal of <100 mg/dL (LDL-C of <70 mg/dL) is considered a therapeutic option. BASIC METABOLIC PANEL (67427 ) Reviewed date:02/04/2024 08:52:20 AM Interpretation: Performing Lab:[facility] [id number] [facility]alSt[facility], [facility] HospitalRvauBE[address] Amadou Gleason Notes/Report: NON-FASTING; NON-FASTING GLUCOSE 173 65-99 mg/dL Fasting reference interval For someone without known diabetes, a glucose value >125 mg/dL indicates that they may have diabetes and this should be confirmed with a follow-up test. UREA NITROGEN (BUN) 13 7-25 mg/dL CREATININE 0.73 0.70-1.30 mg/dL EGFR 107 > OR = 60 mL/min/1.73m2 BUN/CREATININE RATIO SEE NOTE: 6- (calc) Not Reported: BUN and Creatinine are within reference range. SODIUM 141 135-146 mmol/L POTASSIUM 4.2 3.5-5.3 mmol/L CHLORIDE 105 98-110 mmol/L CARBON DIOXIDE 26 20-32 mmol/L CALCIUM 9.3 8.6-10.3 mg/dL HEMOGLOBIN A1c (496) Reviewed date:02/04/2024 08:52:20 AM Interpretation: Performing Lab:[facility] [id number] [employer] [facility], [facility] HospitalLfttEJ[address] Amadou Gleason Notes/Report: NON-FASTING; NON-FASTING HEMOGLOBIN A1c 9.6 <5.7 % of total Hgb For someone without known diabetes, a hemoglobin A1c value of 6.5% or greater indicates that they may have diabetes and this should be confirmed with a follow-up test. For someone with known diabetes, a value <7% indicates that their diabetes is well controlled and a value greater than or equal to 7% indicates suboptimal control. A1c targets should be individualized based on duration of diabetes, age, comorbid conditions, and other considerations. Currently, no consensus exists regarding use of hemoglobin A1c for diagnosis of diabetes for children. This test was performed on the Malcom hope c503 platform. Effective 12/19/23, a change in test platforms from the Diaz Cnc Lathe Machine Operator to the Malcom hope c503 may have shifted HbA1c results compared to historical results. Based on laboratory validation testing conducted at [facility], the Malcom platform relative to the Diaz platform had an average increase in HbA1c value of < or = 0.3%. This difference is within accepted variability established by the National Glycohemoglobin Standardization Program. Note that not all individuals will have had a shift in their results and direct comparisons between historical and current results for testing conducted on different platforms is not recommended. Reason For Referral Reason Juan Pablo or allran for c olonoscopy Diagnosis 1 Routine medical exam (Z00.00) Referral Organization [facility] ROSETTE MARTEL Referring Provider First Name Campos Referring Provider Last Name Anabelle Referring Provider Speciality Internal M edicine General Notes Naila Caputo 2023 11:25:19 AM >Patient notified of appt- waiting on Plavix instructions from Dr. Ahn, Naila Caputo 10/18/2023 02:31:58 PM >Hold for 5 days then resume 3 days after test Clinical Notes Naila Caputo 2023 02:32:24 PM > Referral Priority Routine Referral Appointment Date 01/01/2024 Medications Medication SIG (Take, Route, Frequency, Duration) Notes Start Date End Date Status Pen [place] NA inject subcutaneous 06/04/2023 Active hydrochlorothiazide-lisino pril 12.5 mg-20 mg 2 tabs orally once a day for 30 days Active Flonase Allergy Relief 50 mcg/inh 2 sprays in each nostril once a day for 30 days 06/25/2024 Active buPROPion 150 mg/24 hours 1 tab(s) orall y every 24 hours for 90 days Active Cetirizine Hydrochloride 10 mg 1 tab(s) orally once a day for 90 days 05/05/2024 Active omeprazole 40 mg 1 cap(s) orally once a day for 90 days 05/05/2024 Active Metoprolol Succinate ER 100 mg 1 tab(s) orally once a day for 90 days 08/06/2023 Active metFORMIN 1000 mg 1 tab(s) orally 2 ti mes a day Active glimepiride 2 mg 1 tab(s) orally once a day(in the morning) for 30 days Active atorvastatin 80 mg 1 tab(s) orally once a day for 90 days Active famotidine 40 mg 1 tab(s) orally once a day (at bedtime) for 90 days 06/25/2024 Active isosorbide mononitrate 30 mg 1 tab(s) orally once a day (in the morning) for 90 days Active sertraline 100 mg 1 tab(s) orally once a day for 90 days Active Lantus 100 units/mL 20 units subcutaneou sly each night for 30 days 02/12/2024 Active Soliqua 100/33 100 units-33 mcg/mL INJECT 60 every morning for 30 days Active Plavix 75 mg 1 tab(s) orally once a day for 90 days Active Immunizations Vaccine Route Administration Date Status Comme nts Flublok IM Intramuscular 06/25/2024 Administered FLUZONE 6MO - OLDER IM Intramuscular 08/06/2023 Administer ed SHINGRIX IM Intramuscular 10/17/2023 Administered SHINGRIX IM Intramuscular 01/30/2024 Administered Social History Tobacco Use: Social History Observation Description Date Details (start date - stop date) Never Smoker NA - NA Smoking: Question Answer Notes Are you a: nonsmoker Problems Problem Type SNOMED Code ICD Code Onset Dates Problem Status W/U Status Risk Notes Problem [id number] 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) Active confirmed Problem 758042376 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) Active confirmed Problem 74068965 Primary hypertension (I10) Active confirmed Problem 94059295 Type 2 diabetes mellitus with hyperglycemia, without long-term current use of insulin (E11.65) Active confirmed Problem 880511791 Seasonal allergi c rhinitis, unspecified trigger (J30.2) Active confirmed Problem 462485545 Major depressive episode (F32.9) Active confirmed Problem 563268100 Gastroesophageal reflux disease, unspecified whether esophagitis present (K21.9) Active confirmed Vital Signs Heart Rate 88 /min 06/25/2024 Temperature 97.9 degrees Fahrenheit 06/25/2024 Blood pressure diastolic 80 mm Hg 06/25/2024 Height 68 in 06/25/2024 Blood pressure systolic 130 mm Hg 06/25/2024 Weight 210.2 lbs 06/25/2024 BMI 31.96 kg/m2 06/25/2024 Encounters Encounter Location Date Provider Diagnosis [facility] [address] [place] [address] 10/17/2023 Campos Ahn Type 2 diabetes tani itus with other circulatory complications E11.59 ; Atherosclerotic heart disease of ewiiaapaayp coronary artery without angina pectoris I25.10 ; Encounter for immunization Z23 and Routine medical exam Z00.00 [facility] [address] [facility] [place] [address] 01/30/2024 Campos Ahn Type 2 diabetes tani itus with other circulatory complications E11.59 ; Atherosclerotic heart disease of ewiiaapaayp coronary artery without angina pectoris I25.10 and Encounter for immunization Z23 [facility] [address] [facility] [place] [address] 05/05/2024 Campos Ahn Type 2 diabetes tani itus with other circulatory complications E11.59 ; Atherosclerotic heart disease of ewiiaapaayp coronary artery without angina pectoris I25.10 ; Major depressive episode F32.9 ; Gastroesophageal reflux disease, unspecified whether esophagitis present K21.9 and Seasonal allergic rhinitis, unspecified trigger J30.2 [facility] [address] [facility] [place] [address] 06/25/2024 Campos Ahn Type 2 diabetes tani itus with other circulatory complications E11.59 ; Atherosclerotic heart disease of ewiiaapaayp coronary artery without angina pectoris I25.10 ; Hoarseness R49.0 and Immunization(s) administered Z23 [facility] [address] [facility] [place], [place] [address] 09/27/2023 Campos Ahn Primary hypertension I10 [facility] [address] [facility] [place], [place] [address] 10/18/2023 Campos Lafleurson [facility] [address] [facility] [place], [place] [address] 10/22/2023 Campos Ahn Type 2 diabetes tani itus with hyperglycemia, without long-term current use of insulin E11.65 [facility] [address] [facility] [place], [place] [address] 10/22/2023 Campos Ahn Type 2 diabetes tani itus with hyperglycemia, without long-term current use of insulin E11.65 [facility] [address] [facility] [place], [place] [address] 11/13/2023 Campos Besson [facility] [address] [place] [address] 12/18/2023 Campos Besson [facility] [address] [place] [address] 02/04/2024 Campos Besson [facility] [address] [place] [address] 02/11/2024 Campos Besson [facility] [address] [place] [address] 02/12/2024 Campos Besson [facility] [address] [place] [address] 05/08/2024 Campos Besson Primary hypertension I10 [facility] [address] [place] [address] 07/08/2024 Campos Besson [facility] [address] [place] [address] 07/10/2024 Campos Besson [facility] [address] [facility] [address] [place] [address] 08/27/2024 Campos Besson Primary hypertension I10 Assessments Encounter Date Diagnosis (ICD Code) Assessment Notes Treat ment Notes Treatment Clinical Notes 09/27/2023 Primary hypertension (ICD-10 - I10) 10/17/2023 Type 2 diabetes mellitus with other circulatory complications (ICD-10 - E11.59) Continue Soliqua and metformin for diabetes management. Continue to monitor eating habits and excercise with moderate intensity 5 days a week for 20-30 minutes. 10/17/2023 Atherosclerotic hear t disease of ewiiaapaayp coronary artery without angina pectoris (ICD-10 - I25.10) Continue isosorbide mononitrate, atorvastatin, hydrochlorothiazid e-lisinopril and metoprolol succinate for heart health and prevention. Monitor blood pressure. 10/22/2023 Type 2 diabetes mellitus with hyperglycemia, without long-term current use of insulin (ICD-10 - E11.65) 10/22/2023 Type 2 diabetes mellitus with hyperglycemia, without long-term current use of insulin (ICD-10 - E11.65) 01/30/2024 Type 2 diabetes mellitus with other circulatory complications (ICD-10 - E11.59) A1c at last visit was 9%. Has come down quite nicely. My hope is we will get him into the 7 range. Check labs today, follow-up in 4 months for flu shot and further evaluation. 01/30/2024 Atherosclerotic hear t disease of ewiiaapaayp coronary artery without angina pectoris (ICD-10 - I25.10) On goal-directed therapy with blood pressure reduction, Plavix and aspirin. No change in medication at this point. 05/05/2024 Type 2 diabetes mellitus with other circulatory complications (ICD-10 - E11.59) Patient's A1c has been elevated but it is improving. I reviewed his glucose logs. He is diligent about following his glucose logs and is very aware of any symptoms of hypoglycemia. He has had minimal symptoms of hypoglycemia and is extremely self-aware. 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 05/05/2024 Atherosclerotic hear t disease of ewiiaapaayp coronary artery without angina pectoris (ICD-10 - I25.10) Patient is several years out from intervention. On appropriate therapy. Has had no recurrence of vascular issues 05/08/2024 Primary hypertension (ICD-10 - I10) 06/25/2024 Type 2 diabetes mellitus with other circulatory complications (ICD-10 - E11.59) - current regimen lantus, metformin, soliqua and glimepiride - has been compliant with medications, denies SE - sugars are improved per patient - discussed good follow up with optometry and regular foot checks - last A1c 9.6 PLAN - repeat A1c today 06/25/2024 Atherosclerotic hear t disease of ewiiaapaayp coronary artery without angina pectoris (ICD-10 - I25.10) - lipid panel ordered today 08/27/2024 Primary hypertension (ICD-10 - I10) 06/25/2024 Hoarseness (ICD-10 - R49.0) - patient has had hoarseness, cough, mild dysphagia over past 2-3 weeks - has hx GERD and allergies which are highest on differential at this time - denies odynophagia, weight loss, no smoking history PLAN - start pepcid 20 mg nightly - add flonase daily - cont prilosec, cont antihistamine daily - will follow up in 4-6 weeks and if no improvement will consider referral to ENT vs obtaining EGD 05/05/2024 Major depressive episode (ICD-10 - F32.9) Well-controlled therapy on sertraline. No changes in plan 01/30/2024 Encounter for immunization (ICD-10 - Z23) Needs second Shingrix today. 10/17/2023 Encounter for immunization (ICD-10 - Z23) Shingrix vaccine given for shingles prevention. 10/17/2023 Routine medical exam (ICD-10 - Z00.00) Last colonoscopy revealed 3 polyps 4-5 years ago. It is recommended to get another colonoscopy for increased risk of further polyps, especially since it has been about 5 years since last colonoscopy. Will also administer shingles vaccine. Has had flu shot, lifelong non-smoker., No alcohol use 05/05/2024 Gastroesophageal reflux disease, unspecified whether esophagitis present (ICD-10 - K21.9) Patient has GERD, probably related to GLP issues. Continue therapy with omeprazole, ramp-up dose 06/25/2024 Immunization(s) administered (ICD-10 - Z23) 05/05/2024 Seasonal allergic rhinitis, unspecified trigger (ICD-10 - J30.2) Plan Of Treatment Next Appt Details Provider Name:Campos Velazquezmilton Ahn, 09/24/2024 10:30:00 AM, [address], [place], [address], Insurance Providers Payer Name Payer Address Payer Phone Subscriber Number Group Number Insured Name Patient Relationship to Insured Coverage Start Date Coverage End Date [facility] [employer] [address] [place] [address] [id number] Ralph Dunn Self - patient is the insured Medical (General) History Medical History History ICD Code Heart Disease HTN Diabetes Depression Colon polyps on scope 2019 Surgical History Surgery Date(Month/Year) Hernia Repair 2019 Heart Cath x 10 2000,2006 Hospitalization History Reason Date(Month/Year) Covid 2020 Heart Cath
--- OUTSIDE RECORDS SUMMARY | 2024-09-01 13:30 | XMS_ITS ---
Author Organization [facility] Address [address] [facility] [address] [place] [address] Care Team Providers Care Water Control Station Engineer Name Role Phone Campos Ahn Primary Care Provider Campos Ahn Unavailable Unavailable REASON FOR VISIT refill Medications Medication SIG (Take, Route, Frequency, Duration) Notes Start Date End Date Status Metoprolol Succinate ER 100 mg 1 tab(s) orally once a day for 90 days 08/06/2023 Active atorvastatin 80 mg 1 tab(s) orally once a day for 90 days Active isosorbide mononitrate 30 mg 1 tab(s) orally once a day (in the morning) for 90 days Active Encounters Encounter Location Date Provider Diagnosis [address] [address] 08/27/2024 Campos Ahn Primary hypertension I10 Assessments Encounter Date Diagnosis (ICD Code) Assessment Notes Treat ment Notes Treatment Clinical Notes 08/27/2024 Primary hypertension (ICD-10 - I10) Plan Of Treatment Medication Medication Name Sig Start Date Stop Date Notes Metoprolol Succinate ER 100 mg 1 tab(s) orally once a day for 90 days 08/06/2023 atorvastatin 80 mg 1 tab(s) orally once a day for 90 days isosorbide mononitrate 30 mg 1 tab(s) or ally once a day (in the morning) for 90 days Next Appt Details Provider Name:Campos Ahn, 09/24/2024 10:30:00 AM, [address] [facility], [address], [place], [address], Progress Notes * Ralph DUNNDOB: [birth year] (53 yo M)Acc No.[id number]:08/27/2024 Patient:?Ralph DUNN :1970???Age:53 Y???Sex:Male Address:[address] [place] [address] , [place] [address] * Refills? Refill Metoprolol Succinate ER tablet, extended release, 100 mg, orally, 90 Tablet, 1 tab(s), once a day, 90 days, Refills=1 Refill isosorbide mononitrate tablet, extended release, 30 mg, orally, 90, 1 tab(s), once a day (in the morning), 90 days, Refills=1 Refill atorvastatin tablet, 80 mg, orally, 90 Tablet, 1 tab(s), once a day, 90 days, Refills=1 * true * Date:? Generated for Ginger griffiths/Sirisha/Cadeitting on:?09/01/2024 01:29 PM EST
--- OUTSIDE RECORDS SUMMARY | 2024-09-01 13:30 | XMS_ITS ---
Author Organization [facility] Address [address] [facility] [address] [facility] [address] [place] [address] Care Team Providers Care Business Liaison Officer Name Role Phone Campos Ahn Primary Care Provider Camops Ahn Unavailable Unavailable REASON FOR VISIT Refills Medications Medication SIG (Take, Route, Frequency, Duration) Notes Start Date End Date Status Plavix 75 mg 1 tab(s) orally once a day for 90 days Active Encounters Encounter Location Date Provider Diagnosis [facility] [address] [facility] [address] [facility] [address] [place], [place] [address] 07/10/2024 Campos Ahn Plan Of Treatment Medication Medication Name Sig Start Date Stop Date Notes Plavix 75 mg 1 tab(s) orally once a day for 90 days Next Appt Details Provider Name:Campos Ahn, 09/24/2024 10:30:00 AM, [address] [facility] [address] [facility], [address], [place], [place], [address], Progress Notes * Ralph DUNNDOB: [birth year] (53 yo M)Acc No.[id number]:07/10/2024 Patient:?DUNNRalph :1970???Age:53 Y???Sex:Male Address:[address] [facility] [place] [address] * Refills? Refill Plavix tablet, 75 mg, orally, 90 Tablet, 1 tab(s), once a day, 90 days, Refills=1 * true * Date:? Generated for Ginger griffiths/Sirisha/Cadeitting on:?09/01/2024 01:29 PM EST
--- OUTSIDE RECORDS SUMMARY | 2024-09-01 13:30 | XMS_ITS ---
Author Organization [facility] Address [address] [facility] [address] [place] [address] Care Team Providers Care Water Pollution Control Technician Name Role Phone Campos Ahn Primary Care Provider Campos Ahn Unavailable Unavailable REASON FOR VISIT Refills Medications Medication SIG (Take, Route, Fr equency, Duration) Notes Start Date End Date Status Lantus 100 units/mL 20 units subcutaneou sly each night for 30 days 02/12/2024 Active Soliqua 100/33 100 units-33 mcg/mL INJECT 60 every morning for 30 days Active Encounters Encounter Location Date Provider Diagnosis [facility] [address] [place] [address] 07/08/2024 Campos Ahn Plan Of Treatment Medication Medication Name Sig Start Date Stop Date Notes Lantus 100 units/mL 20 units subcutaneou sly each night for 30 days 02/12/2024 Soliqua 100/33 100 units-33 mcg/mL INJECT 60 every morning for 30 days Next Appt Details Provider Name:Campos Ahn, 09/24/2024 10:30:00 AM, [address], [address], [place], [address], Progress Notes * Ralph DUNNDOB: [birth year] (53 yo M)Acc No.[id number]:07/08/2024 Patient:?Ralph DUNN :1970???Age:53 Y???Sex:Male Address:[address] [place] [address] , [place] [address] * Refills? Refill Soliqua 100/33 solution, 100 units-33 mcg/mL, 15, INJECT 60, every morning, 30 days, Refills=5 Refill Lantus solution, 100 units/mL, subcutaneously, 2, 20 units, each night, 30 days, Refills=3 * true * Date:? Generated for Ginger griffiths/Sirisha/Parkersmitting on:?09/01/2024 01:30 PM EST
[2024-09-01] MEDS: IOPAMIDOL-370 (76%);100ML BOTTLE 160 ML IV (13:39)
[2024-09-01 13:47] LABS: CATHL Activated Clotting Time 329 SEC (74-125)
[2024-09-01 15:00] LABS: PTT Heparin (inpatient only) > 139.0 Seconds (50-75)
--- NOTE | 2024-09-01 15:14 | PC.NURSE ---
pt has remained on room air this shift. pt had left heart cath performed earlier in shift. pt remains on cath vitals. pt rt radial access site still has TR band w/ 16ml of air in place, w/ first amount of air ready to come out @1530. pt has had no complaints this shift. pt has been educated on cath site instructions. pt has had adequate urine output this shift. pt had been ambulating to bathroom w/o assistance prior to procedure. assistance in place w/ ambulation d/t pt receiving anesthesia. no new orders at this time. call light within reach. at bedside.
--- NOTE | 2024-09-01 16:00 | ECG_ITS ---
APPROVED REPORT Exam: Resting ECG HR:73 bpm ECG Measurements Heart Rate 73 AXES GA 172 P 90 QRSd 109 QRS 60 QT 380 T -9 QTc 406 Conclusion ELECTRONIC ATRIAL PACEMAKER SEPTAL MYOCARDIAL INFARCTION , OF INDETERMINATE AGE [40+ ms Q WAVE IN V1/V2] ABNORMAL ECG INTERPRETATION BASED ON A DEFAULT AGE OF 40 YEARS UNCONFIRMED REPORT Electronically signed by : Campos Ahn MD 09/03/2024 10:30:13
--- NOTE | 2024-09-01 16:09 | EXP.PN ---
Subjective *Date: 09/01/24 *Time: 23:03 Exam Data for Last 24 hours Vital signs and Labs for Last 24 Hours: Temp Pulse Resp BP Pulse Ox O2 Del Method 98.1 F 77 20 124/82 95 Room Air 09/01/24 14:45 09/01/24 14:45 09/01/24 14:45 09/01/24 14:45 09/01/24 14:45 09/01/24 14:45 Laboratory Results - last 24 hr 08/31/24 17:09: Sodium 136, Potassium 4.3, Chloride 100, Carbon Dioxide 25, Anion Gap 15.3 H, BUN 24 H, Creatinine 1.10, Estimated Creat Clear 102, Estimated GFR 69, Est GFR ( Amer) 84, Glucose 236 H, Hemoglobin A1c 7.9 H, Lactate 1.5, Calcium 9.5, Magnesium 1.6, Total Bilirubin 0.9, AST 36, ALT 45, Alkaline Phosphatase 117, Troponin I 0.07 H, NT-Pro-B Natriuret Pep 87.2, Total Protein 7.8, Albumin 4.8, Globulin 3.0, Albumin/Globulin Ratio 1.6, Triglycerides 249 H, Cholesterol 217 H, LDL Cholesterol Direct 137.31 H, VLDL Cholesterol 50 H, HDL Cholesterol 47, Cholesterol/HDL Ratio 4.6 H, Lipase 54, TSH 3.05, Thyroxine (T4) 7.6, HIV 1&2 Antibody Rapid Nonreactive 08/31/24 17:15: VBG pH 7.35, VBG pCO2 45.4, VBG pO2 36.5, VBG HCO3 24.7, VBG Total CO2 26.1, VBG O2 Saturation 72.8 H, VBG Base Excess -0.9, VBG Lactic Acid 2.3 H 08/31/24 17:35: WBC 11.8 H, RBC 6.64 H, Hgb 18.5 H, Hct 54.5 H, MCV 82.1, MCH 27.8, MCHC 33.9, RDW 13.9, Plt Count 191, MPV 6.7 L, Neut % (Auto) 79.0, Lymph % (Auto) 9.8 L, [place] % (Auto) 8.3, Eos % (Auto) 2.3, Baso % (Auto) 0.7, Neut # (Auto) 9.3 H, Lymph # (Auto) 1.2, [place] # (Auto) 1.0, Eos # (Auto) 0.3, Baso # (Auto) 0.1, PT 10.2, INR 0.90, APTT 23.5 08/31/24 18:45: Urine Color Yellow, Urine Appearance Clear, Urine pH 5.5, Ur Specific [place] 1.010, Urine Protein Negative, Urine Glucose (UA) 1+, Urine Ketones Negative, Urine Blood Negative, Urine Nitrate Negative, Urine Bilirubin Negative, Urine Urobilinogen 0.2, Ur Leukocyte Esterase Negative, Urine RBC None, Urine WBC Occasional, Ur Squamous Epith Cells None, Urine Bacteria Trace 08/31/24 20:15: Troponin I 0.06 H 08/31/24 21:09: POC Glucose 196 H 08/31/24 21:40: Lactate 1.2 08/31/24 23:00: Troponin I 0.05 H 09/01/24 05:21: POC Glucose 183 H 09/01/24 06:02: WBC 9.6, RBC 6.14, Hgb 17.5, Hct 50.4, MCV 82.1, MCH 28.6, MCHC 34.8, RDW 14.1, Plt Count 168, MPV 7.1 L, Neut % (Auto) 62.1, Lymph % (Auto) 20.7, [place] % (Auto) 12.6 H, Eos % (Auto) 4.0, Baso % (Auto) 0.6, Neut # (Auto) 6.0, Lymph # (Auto) 2.0, [place] # (Auto) 1.2 H, Eos # (Auto) 0.4, Baso # (Auto) 0.1, Sodium 137, Potassium 3.5, Chloride 104, Carbon Dioxide 23, Anion Gap 13.5, BUN 24 H, Creatinine 0.90, Estimated Creat Clear 122, Estimated GFR 88, Est GFR ( Amer) 106 D, Glucose 189 H, Calcium 8.5, Magnesium 1.6, Total Bilirubin 0.9, AST 26 D, ALT 33 D, Alkaline Phosphatase 93, Total Protein 6.1 L, Albumin 3.8 D, Globulin 2.3, Albumin/Globulin Ratio 1.7 09/01/24 08:00: APTT 24.6 L 09/01/24 11:17: POC Glucose 209 H 09/01/24 13:57: Activated Clotting Time 329 H* 09/01/24 14:19: APTT > 139.0 H* I & O for Last 24 hours: Intake & Output 08/29/24 08/30/24 08/31/24 09/01/24 23:59 23:59 23:59 23:59 Intake Total 530 / 530 Output Total 0 / 0 Balance 530 / 530 Weight 92.986 kg 93 kg Constitutional Constitutional: no acute distress *Routine HEENT Exam Head: Present normocephalic Eye: Present EOMI and PERRL ENT: Present mucous membranes moist *Routine Neck Exam Neck: Present supple; Absent lymphadenopathy *Routine Respiratory Exam Respiratory: Present CTA bilaterally *Routine Cardiovascular Exam Cardiovascular: Present RRR *Routine Abdominal Exam Abdominal: Present soft and normoactive bowel sounds; Absent tenderness *Routine Extremities Exam Extremities: Absent cyanosis, clubbing or edema *Routine Skin Exam Skin: Present warm; Absent rash *Routine Neurological Exam Neurological: Present alert and oriented X3 Assessment and Plan *Assessment and plan (1) Non-ST elevation NC (NSTEMI): Status: Acute Category: Medical Code(s): I21.4 - Non-ST elevation (NSTEMI) myocardial infarction (2) Coronary artery disease: Status: Acute Category: Medical Code(s): I25.10 - Atherosclerotic heart disease of [place] coronary artery without angina pectoris (3) Chest pain: Status: Acute Qualifiers: Chest pain type: unspecified Qualified Code(s): R07.9 - Chest pain, unspecified Category: Medical Code(s): R07.9 - Chest pain, unspecified Plan Ralph Dunn is a 53 year old male with a medical history significant for CAD s/p stents, hypertension, HLD, diabetes presented with worsening intermittent chest pressure. Admitted for NSTEMI. #NSTEMI #History of CAD s/p stents - Troponins 0.07-0.05. EKG did show new T wave inversions compared to prior. Was started in heparin drip. 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 - Aspirin 81mg, Plavix 75mg, atorvastatin, 80mg. - Cardiology consulted, appreciate recommendations as above. - Follow-up ECHO. - A1c 7.9, TSH normal, LDL 137. - Anticipate discharge in the morning if ECHO stable. #Hypertension - Continue lisinopril, HCTZ, Toprol. #Diabetes - A1c 7.9 - Lantus 30u nightly, Metformin. Stopped glimiperide given risk of hypoglycemia with insulin. - ACHS glucose checks, LDSSI. FULL CODE Lovenox 40
--- NOTE | 2024-09-01 16:14 | PC.NURSE ---
pt was c/o chest pain. EKG was obtained and read by hospitalist. hospitalist stated he believed this pain could be r/t procedure today. pt asked to rate pain, pt stated his pain was a 3 or 4/10 . pt requested order for ibuprofen. hospitalist made aware. no new orders at this time. call light within reach.
[2024-09-01] MEDS: HYDROCODONE/APAP 5/325 MG TABLET 1 TAB PO (16:31)
[2024-09-01] MEDS: METFORMIN 500MG TABLET 1000 MG PO (16:31)
[2024-09-01 16:44] LABS: POC Glucose,Bedside 214 (70-110)
--- NOTE | 2024-09-01 17:31 | PC.NURSE ---
while removing last 4ml of air from radialband on cath site, pt began to have slight amount of bleeding. radialband was then pumped back up and bleeding stopped. hospitalist made aware. no new orders at this time.
--- NOTE | 2024-09-01 18:43 | PC.NURSE ---
radialband removed. no bleeding noted. tegaderm and gauze dressed over site. call light within reach.
[2024-09-01 19:55] LABS: POC Glucose,Bedside 226 (70-110)
[2024-09-01] MEDS: PANTOPRAZOLE 40MG TABLET 40 MG PO (20:21)
[2024-09-01] MEDS: ATORVASTATIN 40MG TABLET 80 MG PO (20:21)
[2024-09-01] MEDS: INSULIN GLARGINE 100 UNITS/ML 3ML FLEXPEN 30 UNIT SUBCUT (20:22)
[2024-09-02] VITALS: BP 131/72; PULSE 70; PULSE 75; RESP 16; TEMP 37.1; O2SAT 97
--- NOTE | 2024-09-02 00:54 | EXP.EVENT.NO ---
Remained stable at this time reading back on cardiac ultrasound. Was no significant problems found little of the left ventricular wall thickening. Nothing to show any concern or to do anything about at the present time Patient remains comfortable and sleeping,,
[2024-09-02 03:46] VITALS: BMI 32.0
[2024-09-02 03:48] VITALS: BP 153/96; PULSE 73; RESP 17; TEMP 37.2; O2SAT 93
[2024-09-02 04:00] VITALS: PULSE 80
[2024-09-02 06:07] LABS: POC Glucose,Bedside 159 (70-110)
[2024-09-02] MEDS: METFORMIN 500MG TABLET 1000 MG PO (06:30)
[2024-09-02] MEDS: HYDROCODONE/APAP 5/325 MG TABLET 1 TAB PO (06:34)
[2024-09-02 06:44] LABS: Basophils # 0.1 K/mm3 (0-0.2); Basophils % 0.5 % (0.1-2.0); Eosinophils # 0.6 K/mm3 (0.0-0.4); Eosinophils % 5.8 % (0.1-12.0); Hematocrit 50.6 % (42.0-52.0); Hemoglobin 17.1 g/dL (14.1-18.0); Lymphocytes # 1.8 K/mm3 (0.7-4.5); Lymphocytes % 18.4 % (10-50); Mean Corpuscular HGB Conc 33.7 g/dL (31.8-35.4); Mean Corpuscular Hemoglobin 28.1 pg (27.0-31.2); Mean Corpuscular Volume 83.3 fl (80-94); Mean Platelet Volume 6.6 fl (7.4-10.4); Monocytes # 0.9 K/mm3 (0.1-1.0); Monocytes % 9.2 % (1.7-9.3); Neutrophils # 6.5 K/mm3 (1.8-7.8); Neutrophils % 66.1 % (37.0-80.0); Platelet Count 166 K/mm3 (142-424); Red Blood Count 6.08 M/mm3 (4.60-6.20); Red Cell Distribution Width 14.1 % (11.5-17.5); White Blood Count 9.8 K/mm3 (4.8-10.8)
[2024-09-02 07:01] LABS: Anion Gap 10.6 mEq/L (5-15); Blood Urea Nitrogen 20 mg/dl (9-20); Calcium 8.5 mg/dl (8.4-10.2); Carbon Dioxide 28 mmol/L (22.0-30.0); Chloride 103 mmol/L (98-107); Creatinine Clearance Estimated 109 mL/min (50-200); Estimated Glomerular Filt Rate 78 ml/min (>60); GFR (African American) 94 ML/MIN (>60); Glucose 162 mg/dl (74-100); Potassium 3.6 mmoL/L (3.5-5.1); Sodium 138 mmol/L (136-145)
--- NOTE | 2024-09-02 07:48 | EXP.DC.SUM ---
General Admission date:: 08/31/24 Discharge date: 09/02/24 HPI HPI HPI: This patient who recently moved here over the last year and a half from [place], who has a history of stents greater than 15 years ago., He is a diabetic but a non-smoker but has high cholesterol. He began to have chest discomfort generalized malaise a slight bit of nausea today. Patient when admitted to the ER was diaphoretic felt fairly bad . His EKG compared to 1 from 2020 showed that he had inverted T waves in most of his V leads. presently is resolved on examination in the emergency room. It is noted that he normally takes metoprolol and isosorbide but had run out. Had been a couple of days since he is taking either 1 was able to get the metoprolol from the pharmacy but not the isosorbide. Per the ER physician his heart score is a 7. ET scan of the lungs was done to check for PE but due to poor timing this could not be ruled out.. Chest x-ray did show some atelectasis in the posterior part of the left lung and slight bit in to the right lung. Also abdominal CT showed potential enteritis. Only other symptoms patient has is that he has had quite a bit of sinus congestion with drainage for a while since moving to [place] from [place]. I have discussed the patient with the ER physician, I do agree with his history of cardiac high cholesterol and these new symptoms and how bad he looked when he originally appeared in the emergency room that we need to have him admitted. Dr. Roy was consulted and patient information sent to Dr. Roy by ER provider. Hospital Course Hospital Course Hospital Course: Ralph Dunn is a 53 year old male with a medical history significant for CAD s/p stents, hypertension, HLD, diabetes presented with worsening intermittent chest pressure. Admitted for NSTEMI. Taken for heart cath, received 1 drug-eluting stent to the LAD, 2 to the proximal circumflex artery. Did well with monitoring. Chest pain improving. Stable to discharge home with close follow-up with cardiology as an outpatient. Problems addressed as follows: #NSTEMI #History of CAD s/p stents # Hypertension - Troponins 0.07-0.05. EKG did show new T wave inversions compared to prior. Was started in heparin drip. Cardiology was consulted. S/p PCI with 1 INDIAR in LAD, 2 INDIRA in proximal circumflex artery 09/01/24. Continue aspirin 81mg, Plavix 75mg, atorvastatin, 80mg. Due to elevated end-diastolic pressure on heart cath, patient was initiated on Lasix 40 mg daily. Continue to have some intermittent chest discomfort, increased Imdur to 60 mg p.o. daily. Will reevaluate for improvement with blood pressure at follow-up with cardiology. The patient does have LV wall thickness measuring 1.4 cm. He will need a cardiac MRI on an outpatient basis. - Per discussion with cardiology on day of discharge, the patient can be discharged on the following cardiac medications: Aspirin 81 mg daily, Lipitor 80 mg p.o. nightly, Plavix 75 mg daily, Lasix 40 mg daily, Imdur 60 mg daily, lisinopril 20 mg daily, Toprol XL 100 mg daily, Protonix 40 mg daily, nitroglycerin 0.4 mg sublingual as needed for chest pain. #Diabetes: A1c 7.9. Lantus 30u nightly, Metformin. Held glimepiride during admission. Treated with sliding scale insulin with fingersticks ACHS. Resume home regimen at discharge. Exam Data for Last 24 hours Vital signs and Labs for Last 24 Hours: Temp Pulse Resp BP Pulse Ox O2 Del Method 98.9 F 80 17 153/96 H 93 L Room Air 09/02/24 03:48 09/02/24 04:00 09/02/24 03:48 09/02/24 03:48 09/02/24 03:48 09/02/24 06:40 Laboratory Results - last 24 hr 09/01/24 06:02: WBC 9.6, RBC 6.14, Hgb 17.5, Hct 50.4, MCV 82.1, MCH 28.6, MCHC 34.8, RDW 14.1, Plt Count 168, MPV 7.1 L, Neut % (Auto) 62.1, Lymph % (Auto) 20.7, [place] % (Auto) 12.6 H, Eos % (Auto) 4.0, Baso % (Auto) 0.6, Neut # (Auto) 6.0, Lymph # (Auto) 2.0, [place] # (Auto) 1.2 H, Eos # (Auto) 0.4, Baso # (Auto) 0.1 09/01/24 08:00: APTT 24.6 L 09/01/24 11:17: POC Glucose 209 H 09/01/24 13:57: Activated Clotting Time 329 H* 09/01/24 14:19: APTT > 139.0 H* 09/01/24 16:38: POC Glucose 214 H 09/01/24 19:44: POC Glucose 226 H 09/02/24 06:00: POC Glucose 159 H 09/02/24 06:22: WBC 9.8, RBC 6.08, Hgb 17.1, Hct 50.6, MCV 83.3, MCH 28.1, MCHC 33.7, RDW 14.1, Plt Count 166, MPV 6.6 L, Neut % (Auto) 66.1, Lymph % (Auto) 18.4, [place] % (Auto) 9.2, Eos % (Auto) 5.8, Baso % (Auto) 0.5, Neut # (Auto) 6.5, Lymph # (Auto) 1.8, [place] # (Auto) 0.9, Eos # (Auto) 0.6 H, Baso # (Auto) 0.1, Sodium 138, Potassium 3.6, Chloride 103, Carbon Dioxide 28, Anion Gap 10.6, BUN 20, Creatinine 1.00, Estimated Creat Clear 109, Estimated GFR 78, Est GFR ( Amer) 94, Glucose 162 H, Calcium 8.5 I & O for Last 24 hours: Intake & Output 08/30/24 08/31/24 09/01/24 09/02/24 23:59 23:59 23:59 23:59 Intake Total 1065 / 1065 Output Total 0 / 0 0 / 0 Balance 1065 / 1065 0 / 0 Weight 92.986 kg 93 kg 92.646 kg Microbiology Reports for the Last 24 Hours: Microbiology 08/31/24 17:05 Blood Blood Culture - Preliminary NO GROWTH AFTER 24 HOURS 08/31/24 17:35 Blood Blood Culture - Preliminary NO GROWTH AFTER 24 HOURS Constitutional Constitutional: no acute distress, obese and cooperative *Routine HEENT Exam Head: Present normocephalic Eye: Present EOMI and PERRL ENT: Present mucous membranes moist *Routine Neck Exam Neck: Present supple; Absent lymphadenopathy *Routine Respiratory Exam Respiratory: Present CTA bilaterally; Absent rhonchi, wheezes or crackles *Routine Cardiovascular Exam Cardiovascular: Present RRR *Routine Abdominal Exam Abdominal: Present soft and normoactive bowel sounds; Absent tenderness *Routine Rectal Exam Patient deferred: visual exam *Routine Exam Patient deferred: penile exam *Routine Extremities Exam Extremities: Absent cyanosis, clubbing or edema *Routine Skin Exam Skin: Present warm; Absent rash *Routine Neurological Exam Neurological: Present alert, oriented X3 and moving all extremities; Absent altered mental status Results Data Completed and Pending Labs on day of discharge: Labs from last 24 hours 09/02/24 09/02/24 09/01/24 06:22 06:00 19:44 WBC 9.8 RBC 6.08 Hgb 17.1 Hct 50.6 MCV 83.3 MCH 28.1 MCHC 33.7 RDW 14.1 Plt Count 166 MPV 6.6 L Neut % (Auto) 66.1 Lymph % (Auto) 18.4 [place] % (Auto) 9.2 Eos % (Auto) 5.8 Baso % (Auto) 0.5 Neut # (Auto) 6.5 Lymph # (Auto) 1.8 [place] # (Auto) 0.9 Eos # (Auto) 0.6 H Baso # (Auto) 0.1 APTT Activated Clotting Time Sodium 138 Potassium 3.6 Chloride 103 Carbon Dioxide 28 Anion Gap 10.6 BUN 20 Creatinine 1.00 Estimated Creat Clear 109 Estimated GFR 78 Est GFR ( Amer) 94 Glucose 162 H POC Glucose 159 H 226 H Calcium 8.5 09/01/24 09/01/24 09/01/24 16:38 14:19 13:57 WBC RBC Hgb Hct MCV MCH MCHC RDW Plt Count MPV Neut % (Auto) Lymph % (Auto) [place] % (Auto) Eos % (Auto) Baso % (Auto) Neut # (Auto) Lymph # (Auto) [place] # (Auto) Eos # (Auto) Baso # (Auto) APTT > 139.0 H* Activated Clotting Time 329 H* Sodium Potassium Chloride Carbon Dioxide Anion Gap BUN Creatinine Estimated Creat Clear Estimated GFR Est GFR ( Amer) Glucose POC Glucose 214 H Calcium 09/01/24 09/01/24 09/01/24 11:17 08:00 06:02 WBC 9.6 RBC 6.14 Hgb 17.5 Hct 50.4 MCV 82.1 MCH 28.6 MCHC 34.8 RDW 14.1 Plt Count 168 MPV 7.1 L Neut % (Auto) 62.1 Lymph % (Auto) 20.7 [place] % (Auto) 12.6 H Eos % (Auto) 4.0 Baso % (Auto) 0.6 Neut # (Auto) 6.0 Lymph # (Auto) 2.0 [place] # (Auto) 1.2 H Eos # (Auto) 0.4 Baso # (Auto) 0.1 APTT 24.6 L Activated Clotting Time Sodium Potassium Chloride Carbon Dioxide Anion Gap BUN Creatinine Estimated Creat Clear Estimated GFR Est GFR ( Amer) Glucose POC Glucose 209 H Calcium Preliminary micro results at discharge 08/31/24 17:05 Blood Culture - Preliminary Blood NO GROWTH AFTER 24 HOURS 08/31/24 17:35 Blood Culture - Preliminary Blood NO GROWTH AFTER 24 HOURS DS: Diagnosis Discharge Diagnosis (1) Non-ST elevation [place] (NSTEMI): Status: Acute Code(s): I21.4 - Non-ST elevation (NSTEMI) myocardial infarction (2) Coronary artery disease: Status: Acute Code(s): I25.10 - Atherosclerotic heart disease of [place] coronary artery without angina pectoris (3) Chest pain: Status: Acute Code(s): R07.9 - Chest pain, unspecified Qualifiers: Chest pain type: unspecified Qualified Code(s): R07.9 - Chest pain, unspecified Meds Home Medications and Allergies Home Medications ?Medication ?Instructions ?Recorded ?Confirmed ?Type atorvastatin 80 mg tablet (Lipitor) 80 mg PO HS 05/30/23 09/01/24 History bupropion HCl 150 mg 24 hr tablet, 150 mg PO DAILY 05/30/23 09/01/24 History extended release clopidogrel 75 mg tablet (Plavix) 75 mg PO DAILY 05/30/23 09/01/24 History metformin 1,000 mg tablet 1,000 mg PO BIDWMEAL 05/30/23 09/01/24 History sertraline 100 mg tablet 100 mg PO DAILY 05/30/23 09/01/24 History glimepiride 2 mg tablet 2 mg PO DAILY 03/26/24 09/01/24 History insulin glargine 100 60 unit SQ AM 03/26/24 09/01/24 History unit-lixisenatide 33 mcg/mL subcutaneous pen (Soliqua 100/33) insulin glargine 100 unit/mL (3 30 unit SQ HS 03/26/24 09/01/24 History mL) subcutaneous pen (Lantus Solostar U-100 Insulin) metoprolol succinate 100 mg 100 mg PO DAILY 03/26/24 09/01/24 History tablet,extended release 24 hr cetirizine 10 mg tablet 10 mg PO DAILY 05/20/24 09/01/24 History omeprazole 40 mg capsule,delayed 40 mg PO DAILY 05/20/24 09/01/24 History release famotidine 40 mg tablet 40 mg PO DAILY 08/31/24 09/01/24 History fluticasone propionate 50 2 spray intranasal DAILY 09/01/24 09/01/24 History mcg/actuation nasal spray,suspension aspirin 81 mg chewable tablet 81 mg PO DAILY 30 days #30 tabs 09/02/24 Rx furosemide 40 mg tablet 40 mg PO DAILY 30 days #30 tabs 09/02/24 Rx isosorbide mononitrate 60 mg 60 mg PO DAILY 30 days #30 tabs 09/02/24 Rx tablet,extended release 24 hr lisinopril 20 mg tablet 20 mg PO DAILY 30 days #30 tabs 09/02/24 Rx New Prescriptions to Start Prescriptions: Byron Benson furosemide Byron Deshpande isosorbide mononitrate Byron Deshpande lisinopril Byron Deshpande Allergies Allergy/AdvReac Type Severity Reaction Status Date / Time Penicillins Allergy Verified 05/20/24 08:39 Discharge Plan Disposition Patient Disposition: Home, Self-Care Condition: Fair Discharge Order Discharge Orders: Discharge Order (Routine); Ordered 09/02/24 Ordered By: Byron Deshpande Follow up Plan Follow up with: David Roy MD [Staff Physician] - 09/08/24 11:30 am Campos Ahn MD [Primary Care Provider] - 09/08/24 10:15 am Prescriptions/Medication Reconciliation: New aspirin 81 mg Tablet,Chewable 81 mg PO DAILY 30 Days Qty: 30 0RF furosemide 40 mg Tablet 40 mg PO DAILY 30 Days Qty: 30 0RF lisinopril 20 mg Tablet 20 mg PO DAILY 30 Days Qty: 30 0RF isosorbide mononitrate 60 mg Tablet Extended Release 24 Hr 60 mg PO DAILY 30 Days Qty: 30 0RF Continued glimepiride 2 mg tablet 2 mg PO DAILY Patient Comments: TAKE 1 TABLET BY MOUTH IN THE MORNING insulin glargine [Lantus Solostar U-100 Insulin] 100 unit/mL (3 mL) insulin pen 30 unit SQ HS Patient Comments: INJECT 20 UNITS SUBCUTANEOUSLY ONCE DAILY AT NIGHT FOR 30 DAYS metoprolol succinate 100 mg tablet extended release 24 hr 100 mg PO DAILY Patient Comments: TAKE 1 TABLET BY MOUTH ONCE DAILY omeprazole 40 mg capsule,delayed release(DR/EC) 40 mg PO DAILY Patient Comments: TAKE 1 CAPSULE BY MOUTH ONCE DAILY cetirizine 10 mg tablet 10 mg PO DAILY Patient Comments: TAKE 1 TABLET BY MOUTH ONCE DAILY famotidine 40 mg tablet 40 mg PO DAILY Patient Comments: TAKE 1 TABLET BY MOUTH ONCE DAILY AT BEDTIME fluticasone propionate 50 mcg/actuation spray,suspension 2 spray INTRANASAL DAILY Patient Comments: USE 2 SPRAY(S) IN EACH NOSTRIL ONCE DAILY Rx Instructions: use 2 sprays in each nostril once daily atorvastatin [Lipitor] 80 mg Tablet 80 mg PO HS sertraline 100 mg Tablet 100 mg PO DAILY clopidogrel [Plavix] 75 mg Tablet 75 mg PO DAILY metformin 1,000 mg Tablet 1,000 mg PO BIDWMEAL bupropion HCl 150 mg Tablet Extended Release 24 Hr 150 mg PO DAILY Soliqua 100/33 100 unit-33 mcg/mL insulin pen 60 unit SQ AM Discontinued lisinopril-hydrochlorothiazide 20-12.5 mg tablet 2 tab PO DAILY Patient Comments: TAKE 2 TABLETS BY MOUTH ONCE DAILY isosorbide mononitrate 30 mg Tablet Extended Release 24 Hr 30 mg PO DAILY Problem Reconciliation Problems Reviewed?: Yes Patient Discharge Instructions ACTIVITY: Continue current activity DIET: continue same diet Patient Instructions: DI for Heart Attack, DI for Cardiac Catheterization, DI for Surgical Site Infection Print Language: Mongolian Providers Primary Care Provider: Campos Ahn Admit Provider: Elder Monge Attending Provider: Elder Monge
[2024-09-02] MEDS: CLOPIDOGREL 75MG TAB 75 MG PO (07:49)
[2024-09-02] MEDS: ISOSORBIDE MONO 30MG TAB.ER.24H 30 MG PO (07:50)
[2024-09-02] MEDS: ASPIRIN 81MG CHEWABLE TABLET 81 MG PO (07:50)
[2024-09-02] MEDS: LORATADINE 10MG TABLET 10 MG PO (07:50)
[2024-09-02] MEDS: METOPROLOL SUCCINATE XL 100MG TABLET 100 MG PO (07:50)
[2024-09-02] MEDS: hydroCHLOROthiazide 12.5MG CAPSULE 12.5 MG PO (07:50)
[2024-09-02] MEDS: buPROPion HCl SR 150MG TAB 150 MG PO (07:50)
[2024-09-02] MEDS: SERTRALINE 100MG TABLET 100 MG PO (07:50)
[2024-09-02] MEDS: LISINOPRIL 20MG TABLET 20 MG PO (07:51)
[2024-09-02 08:00] VITALS: BP 165/97; PULSE 84; PULSE 90; RESP 18; TEMP 37.2; O2SAT 95
--- NOTE | 2024-09-02 08:06 | PC.NURSE ---
TECH NOTE; NURSE NOTIFIED OF BLOOD PRESSURE FOR 0800 VITAL SIGNS Shashank RAGSDALE, SRNA
[2024-09-02] MEDS: INSULIN GLARGINE SUBCUT (08:15)
[2024-09-02] MEDS: LIXISENATIDE SUBCUT (08:15)
[2024-09-02] MEDS: FUROSEMIDE 40 MG TABLET PO (09:58)
[2024-09-02] MEDS: ISOSORBIDE MONO 60MG TAB.ER.24H 60 MG PO (09:59)
[2024-09-02 10:13] LABS: POC Glucose,Bedside 176 (70-110)
[2024-09-02 10:28] LABS: HCV Ab Non Reactive (Non Reactive)
--- NOTE | 2024-09-02 11:19 | EXP.CARD.PN ---
Subjective Subjective Date: 09/02/24 Time: 09:00 Principal diagnosis: nonstemi, CAD Interval history: This is a 53-year-old white male who was admitted to the hospital with chest pain. The patient was found to have an elevated troponin consistent with a non-STEMI. He underwent left cardiac catheterization yesterday and had 1 stent placed to the LAD and 2 stents placed to the circumflex artery. He has moderate persistent disease to the right coronary artery and LVEDP of 30 mmHg. This morning he states that he is still been having some intermittent twinges in his chest which he states he always has. He states that this is not like the pain he was having prior to the stenting. He denies any shortness of breath or edema. He denies any fever, chills, nausea, vomiting, diarrhea, PND orthopnea. He states that his right radial access site is healing well and he has no pain. Exam Data for Last 24 hours Vital signs and Labs for Last 24 Hours: Temp Pulse Resp BP Pulse Ox O2 Del Method 99.0 F 84 18 165/97 H 95 Room Air 09/02/24 08:00 09/02/24 08:00 09/02/24 08:00 09/02/24 08:00 09/02/24 08:00 09/02/24 09:50 Laboratory Results - last 24 hr 08/31/24 17:09: Hepatitis C Antibody Non reactive 09/01/24 11:17: POC Glucose 209 H 09/01/24 13:57: Activated Clotting Time 329 H* 09/01/24 14:19: APTT > 139.0 H* 09/01/24 16:38: POC Glucose 214 H 09/01/24 19:44: POC Glucose 226 H 09/02/24 06:00: POC Glucose 159 H 09/02/24 06:22: WBC 9.8, RBC 6.08, Hgb 17.1, Hct 50.6, MCV 83.3, MCH 28.1, MCHC 33.7, RDW 14.1, Plt Count 166, MPV 6.6 L, Neut % (Auto) 66.1, Lymph % (Auto) 18.4, [place] % (Auto) 9.2, Eos % (Auto) 5.8, Baso % (Auto) 0.5, Neut # (Auto) 6.5, Lymph # (Auto) 1.8, [place] # (Auto) 0.9, Eos # (Auto) 0.6 H, Baso # (Auto) 0.1, Sodium 138, Potassium 3.6, Chloride 103, Carbon Dioxide 28, Anion Gap 10.6, BUN 20, Creatinine 1.00, Estimated Creat Clear 109, Estimated GFR 78, Est GFR ( Amer) 94, Glucose 162 H, Calcium 8.5 09/02/24 10:06: POC Glucose 176 H I & O for Last 24 hours: Intake & Output 08/30/24 08/31/24 09/01/24 09/02/24 23:59 23:59 23:59 23:59 Intake Total 1065 / 1065 480 / 480 Output Total 0 / 0 0 / 0 Balance 1065 / 1065 480 / 480 Weight 205 lb 205 lb 0.478 oz 204 lb 4 oz Microbiology Reports for the Last 24 Hours: Microbiology 08/31/24 17:05 Blood Blood Culture - Preliminary NO GROWTH AFTER 24 HOURS 08/31/24 17:35 Blood Blood Culture - Preliminary NO GROWTH AFTER 24 HOURS Constitutional Constitutional: no acute distress *Routine Respiratory Exam Respiratory: Present CTA bilaterally and symmetric chest movement *Routine Cardiovascular Exam Cardiovascular: Present RRR, Normal S1 and Normal S2 *Routine Abdominal Exam Abdominal: Present soft and normoactive bowel sounds; Absent tenderness *Routine Extremities Exam Extremities: Present full ROM and normal capillary refill; Absent edema *Routine Skin Exam Skin: Present intact, dry and warm Detailed Neck Exam: Thyroids Thyroid: Absent bruit Progress Note: A&P Assessment and plan (1) Non-ST elevation [place] (NSTEMI): Status: Acute (2) Coronary artery disease: Status: Acute (3) Angina pectoris: Status: Acute (4) Diabetes mellitus, type 2: Status: Acute (5) Hyperlipidemia: Status: Acute (6) Hypertension: Status: Acute Assessment and Plan Assessment and Plan for All Diagnoses:: Plan: 1. The patient was admitted to the hospital with chest pain. He was found to have a non-STEMI and underwent left cardiac catheterization yesterday. Patient had 1 stent to the LAD and 2 stents to the circumflex artery. He has moderate persistent right coronary artery disease and an LVEDP of 30 mmHg. The patient will remain on aspirin and Plavix for dual antiplatelet therapy. 2. As mentioned above the patient does have an elevated LVEDP. He would per likely benefit from a little bit of diuresis especially in the setting of hypertension. Will stop HCTZ and start Lasix 40 mg p.o. daily. 3. He has still been having some intermittent episodes of angina which has significantly improved. Will increase his Imdur to 60 mg p.o. daily. 4. His blood pressure is elevated. As mentioned above we have started him on Lasix and increased his Imdur which will also help to improve his blood pressure. 5. His LDL goal is less than 55. His LDL is 137. He is on high-dose Lipitor. 6. The patient is diabetic. He will need aggressive control of his diabetes. Will defer management of this to the hospitalist. 7. The patient does have LV wall thickness measuring 1.4 cm. He will need a cardiac MRI on an outpatient basis. 8. No further recommendations at this time from a cardiac standpoint. The patient can be discharged home from a cardiac standpoint with follow-up in cardiology clinic next week. 9. The patient can be discharged on the following cardiac medications: Aspirin 81 mg daily, Lipitor 80 mg p.o. nightly, Plavix 75 mg daily, Lasix 40 mg daily, Imdur 60 mg daily, lisinopril 20 mg daily, Toprol XL 100 mg daily, Protonix 40 mg daily, nitroglycerin 0.4 mg sublingual as needed for chest pain. Thank you for the opportunity to help participate in the care of this patient. All recommendations and orders are per Dr. Silver.
--- NOTE | 2024-09-03 09:58 | SW/DCPLANNER ---
Spoke with patient on the phone and he stated things are going very well and that he is aware of his upcoming appointments and that he has no concerns or questions at this time. Macrina GARDUNO Equipment Service Technician
== END 2024-09-02 11:46 | disposition home or self-care (01) | DRG 322 ==
LOC: ER 16:47 → 2ND 19:59
PROVIDERS: Internal Medicine; Nurse Practitioner Family; Admitting Provider Student in an Organized Health Care Education/Training Program; Emergency Provider Emergency Medicine; PCP Internal Medicine Adolescent Medicine; Visit Provider Student in an Organized Health Care Education/Training Program
PROC: 027136Z Dilation of Coronary Artery, Two Arteries with Three Drug-eluting Intraluminal Devices, Percutaneous Approach (ICD-10-PCS; principal; 2024-09-01 10:00)
DX: I21.4 Non-ST elevation (NSTEMI) myocardial infarction (principal); I25.10 Atherosclerotic heart disease of native coronary artery without angina pectoris; E11.65 Type 2 diabetes mellitus with hyperglycemia; I10 Essential (primary) hypertension; Z95.5 Presence of coronary angioplasty implant and graft; Z79.899 Other long term (current) drug therapy; Z79.4 Long term (current) use of insulin; E78.5 Hyperlipidemia, unspecified; Z79.01 Long term (current) use of anticoagulants
CPT/HCPCS: 36415; 71045; 71275; 74174; 80048; 80053; 80061; 81001; 82803; 82962; 83036; 83605; 83690; 83735; 83880; 84436; 84443; 84484; 85025; 85347; 85610; 85730; 86803; 87040; 87389; 92928; 93005; 93306; 93458; 99152; 99153; 99291; C1725; C1769; C1874; C9600; J1200; J1644; J2250; J3010; J3475; Q9967

== ENCOUNTER 2024-09-08 09:40 | Outpatient (CLI) | payer OTHER, SELFPAY ==
[2024-09-08 10:37] LABS: Basophils # 0.1 K/mm3 (0-0.2); Basophils % 0.7 % (0.1-2.0); Eosinophils # 1.2 K/mm3 (0.0-0.4); Eosinophils % 10.7 % (0.1-12.0); Hematocrit 51.4 % (42.0-52.0); Hemoglobin 17.4 g/dL (14.1-18.0); Lymphocytes # 1.9 K/mm3 (0.7-4.5); Lymphocytes % 17.1 % (10-50); Mean Corpuscular HGB Conc 33.8 g/dL (31.8-35.4); Mean Corpuscular Hemoglobin 28.3 pg (27.0-31.2); Mean Corpuscular Volume 83.9 fl (80-94); Mean Platelet Volume 6.7 fl (7.4-10.4); Monocytes # 1.2 K/mm3 (0.1-1.0); Monocytes % 10.5 % (1.7-9.3); Neutrophils # 6.9 K/mm3 (1.8-7.8); Platelet Count 219 K/mm3 (142-424); Red Blood Count 6.13 M/mm3 (4.60-6.20); White Blood Count 11.2 K/mm3 (4.8-10.8)
[2024-09-08 10:45] LABS: Chloride 104 mmol/L (98-107); Potassium 4.2 mmoL/L (3.5-5.1); Sodium 142 mmol/L (136-145)
[2024-09-08 10:48] LABS: Anion Gap 13.2 mEq/L (5-15); Blood Urea Nitrogen 18 mg/dl (9-20); Carbon Dioxide 29 mmol/L (22.0-30.0); Estimated Glomerular Filt Rate 78 ml/min (>60); GFR (African American) 94 ML/MIN (>60)
[2024-09-08 10:49] LABS: Glucose 71 mg/dl (74-100)
== END 2024-09-08 23:59 | disposition home or self-care (01) ==
LOC: LAB 09:41
PROVIDERS: PCP Internal Medicine Adolescent Medicine; Visit Provider Internal Medicine
DX: I25.10 Atherosclerotic heart disease of native coronary artery without angina pectoris (principal); I10 Essential (primary) hypertension
CPT/HCPCS: 36415; 80048; 85025

== ENCOUNTER 2024-12-29 10:59 | Outpatient (CLI) | payer OTHER, SELFPAY ==
--- NOTE | 2024-12-29 11:02 | FL_ITS ---
FINAL REPORT CLINICAL HISTORY: ESOPHAGEAL DYSPHASIA 19.38 mGy DAP 315.17 fluoro 2:30 FINDINGS: FLUOROSCOPY LESS THAN 1 HOUR HISTORY: Fluoroscopy guidance. FINDINGS: Fluoroscopic guidance was provided for modified barium swallow. Two spot films were obtained. A total of 2:30 minutes of fluoroscopy time were used. DAP: 19.38 mGy IMPRESSION: As above. Reviewed, Interpreted and Dictated by Mini Hearn MD Transcribed by Yris Bell Authenticated and [facility]
[2024-12-29] MEDS: BARIUM SULFATE(LIQUID E-Z-PAQUE);355ML BOTTLE 355 ML PO (11:37)
--- NOTE | 2024-12-29 14:14 | HMH.SLMBS2 ---
Speech & Language Evaluation Speech/Lang Modified Barium Swallow Start: 12/29/24 13:57 Freq: once Status: Complete Protocol: Document 12/29/24 13:57 MIGUELANGEL (Rec: 12/29/24 14:13 [id number] Co-signed By ST Ángel CURRENCY MACHINE OPERATOR Evaluation Information CURRENCY MACHINE OPERATOR Evaluation Information Date of Evaluation: 12/29/24 Time of Evaluation: 11:00 Evaluation Type Initial Certification Reason for Referral esophageal dysphagia per MD order Does Patient Qualify for Service No Qualify/Failure Comment Based on clinical observations made throughout instrumental assessment and patient interview, further skilled speech therapy services are not warranted at this time. Pt demonstrated adequate mastication and manipulation of bolus, as well as WFL swallow function. No aspiration observed during study. Pt would benefit from GI consult for globus sensation. MBS Recommendations Plan Pt/Guardian verbally ack understanding Yes of dx/prognosis/goals Diet Dietary Recommendations Regular,Thin Liquids SL Swallow Guidelines Alt bite w/sip thru meal, Standard Aspiration Prec.,Eat at slow rate,Reflux precautions Treatment/Strategies Strategy/Precaution Recommended Sitting Upright (90 deg),Chin Tuck,Double Swallow,Small Bites and Sips,Alternate Liquids/Solids Referral/Other Recommended Referrals GI Consult Comment Pt expressed globus sensation after eating and drinking. 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 No other significant PMHx was expressed. Does Patient have Reflux or GERD? No Does Patient Experience Coughing or Yes Choking Episodes? Coughing or Choking Comment Pt states he occasionally coughs while eating and drinking, and will also cough hours after eating and drinking. Does Patient Avoid Certain Food Textures No /Consistencies? Does Patient Utilize Compensatory Yes Strategies During Meals? Compensatory Strategies Comment Pt stated he will sometimes clear his throat when needed. Has Patient Experienced Significant No Weight Loss? Does Pt have Hx of Recurrent Pneumonias No or Respiratory Infections? Has Patient Noticed Change in Vocal No Quality? Mod Barium Swallow Study Patient Orientation Patient Orientation Person,Place,Time,Situation Oral Expression Ability No Impairment Ability to Follow Directions Excellent Is Patient able to Perform Volitional Yes Throat Clear? Is Patient able to Perform Volitional Yes Cough? Is Patient able to Manage Secretions Yes Independently? Mod Barium Swallow Set Up Radiologist Guerrero [place] Patient Presentation: Awake,Alert,Appropriate, Follows Commands Bolus Consistencies Trialed: Thin Liquids,Pudding,Puree, Mechanical Soft,Regular,Pill ( Barium Tablet) MBSS Observations Consistency & Strategy Trial Regular Penetration/Aspiration Scale 1 PAS Amount Neither Pharyngeal Residual 0-9% Mechanical Soft Penetration/Aspiration Scale 1 PAS Amount Neither Pharyngeal Residual 0-9% Puree Penetration/Aspiration Scale 1 PAS Amount Neither Pharyngeal Residual 0-9% Pudding Penetration/Aspiration Scale 1 PAS Amount Neither Pharyngeal Residual 0-9% Thin Penetration/Aspiration Scale 2 PAS Amount Trace Pharyngeal Residual 0-9% Mod Barium Swallow Impressions Oral Phase Summary & Impressions Oral Phase: Impression Minimal Impairment Oral Phase: Labial Closure No Impairment (WFL) Oral Phase: Bolus Formation Pooling L/R No Impairment (WFL) Oral Phase: Bolus Formation Under Tongue No Impairment (WFL) Oral Phase: Bolus Formation Scattered No Impairment (WFL) Loss Oral Phase: Mastication Rotary Chew No Impairment (WFL) Oral Phase: Mastication Munching No Impairment (WFL) Oral Phase: Mastication Lateralization No Impairment (WFL) Oral Phase: Lingual Movement No Impairment (WFL) Oral Phase: Residue Clearing Minimal Impairment Oral Phase: Summary Minimal impairment of the oral phase of swallow. Pt's mastication and manipulation of bolus were adequate for all consistencies trialed. No bolus pooling or scattered loss was observed on any consistency trialed. Pt had adequate lingual movement. Minimal oral residue observed on mechanical soft and regular food trialed, which were cleared with liquid wash. Pharyngeal Phase Summary & Impressions Pharyngeal Phase: Impression Minimal Impairment Pharyngeal Phase: A/P Lingual Propulsion No Impairment (WFL) Spills Pharyngeal Phase: Swallow Response Delay No Impairment (WFL) Pharyngeal Phase: Base of Tongue No Impairment (WFL) Pharyngeal Phase: Epiglottic Coverage Minimal Impairment Pharyngeal Phase: Laryngeal Elevation Minimal Impairment Pharyngeal Phase: Vallecular Retention No Impairment (WFL) Clearing Pharyngeal Phase: Pharyngeal Wall Minimal Impairment Residue Clearing Pharyngeal Phase: Piriform Sinus No Impairment (WFL) Retention Pharyngeal Phase: Other Observations Minimal impairment of pharyngeal phase of swallow. No aspiration observed on any consistency trialed. No A/P spills observed on any consistency swallow. Pt demonstrated slightly reduced hyolaryngeal excursion and elevation resulting in slightly reduced epiglottis coverage during thin liquid trials, leading to penetration that was ejected from the airway. CURRENCY MACHINE OPERATOR trialed chin tuck during thin liquid trials, which eliminated penetration and resulted in safe/efficient swallow function. Pt's BOT retraction was WFL on all consistencies trialed. Minimal pharyngeal wall residue observed on mechanical soft and regular food trials, which was cleared with subsequent swallow. Pill trial was WFL. Aspiration Aspiration? No Silent Aspiration? No CURRENCY MACHINE OPERATOR MBSS Goals Education Instructions provided CURRENCY MACHINE OPERATOR discussed clinical observations made throughout instrumental assessment, compensatory strategies, and diet recommendations with pt who expressed understanding. Patient/Caregiver Able to Recall Able to recall/restate Information Reinforcement needed No PHYSICIAN CERTIFICATION: I certify the specified therapy services for Ralph Dunn are required, authorized, and reviewed every 30 days.
== END 2024-12-29 23:59 | disposition home or self-care (01) ==
PROVIDERS: PCP Internal Medicine Adolescent Medicine; Visit Provider Nurse Practitioner Family
DX: R13.19 Other dysphagia (principal)
CPT/HCPCS: 74230; 92611

== ENCOUNTER 2025-03-17 11:32 | Observation (INO) | payer OTHER, SELFPAY ==
[2025-03-17] VITALS (17 sets, daily range): BP systolic 154–201; BP diastolic 94–120; PULSE 75–92; RESP 14–21; TEMP 36.6–37.1; O2SAT 90–95; BMI 32.5
--- NOTE | 2025-03-17 | XR_ITS ---
FINAL REPORT CLINICAL HISTORY: sepsis workup COMPARISON: 08/31/2024 FINDINGS: A portable view of the chest was obtained. Cardiac and mediastinal silhouettes are within normal limits. The lungs are clear. There is no pleural effusion or pneumothorax. No significant changes are noted since the prior exam of 08/31/2024. IMPRESSION: No acute process on this portable exam. Reviewed, Interpreted and Dictated by Yanira Champion MD Transcribed by Princess Moeller Authenticated and [facility]
--- NOTE | 2025-03-17 11:36 | ECG_ITS ---
APPROVED REPORT Exam: Resting ECG HR:83 bpm ECG Measurements Heart Rate 83 AXES GA 128 P 51 QRSd 115 QRS 44 QT 379 T -1 QTc 419 Conclusion SINUS RHYTHM INCOMPLETE RIGHT BUNDLE BRANCH BLOCK [90+ ms QRS DURATION, TERMINAL R IN V1/V2, 40+ ms S IN I/aVL/V4/V5/V6] MODERATE VOLTAGE CRITERIA FOR LVH, CONSIDER NORMAL VARIANT [MEETS CRITERIA IN ONE OF: R(aVL), S(V1), R(V5), R(V5/V6)+S(V1)] NONSPECIFIC ST & T-WAVE ABNORMALITY ST abnormalities in leads II and III as well as T wave inversions in lead aVF and slight depressions in lead V5 and V6, no reciprocal changes, no STEMI Electronically signed by : HUNG ELLIOTT, 03/18/2025 02:23:55
[2025-03-17] MEDS: DEXTROSE 50% 50ML SYRINGE (CRASH CART) 50 ML IVP (11:45)
[2025-03-17 11:53] LABS: VBG Base Excess -3.8 mmol/L (-2.4-2.3); VBG HCO3 22.2 mmol/L (23-30); VBG PCO2 43.3 mmol/L (35-51); VBG PH 7.33 mmol/L (7.31-7.41); VBG PO2 59.9 mmol/L (28-40); VBG Total CO2 23.5 mmol/L (23-27)
[2025-03-17 11:58] LABS: Alanine Aminotransferase 41 U/L (12-78); Albumin Level 4.8 g/dl (3.5-5.0); Albumin/Globulin Ratio 1.6 (1.1-1.8); Alkaline Phosphatase 119 U/L (38-126); Aspartate Amino Transferase 37 U/L (17-59); Bilirubin,Total 0.8 mg/dl (0.2-1.3); Blood Urea Nitrogen 15 mg/dl (9-20); Calcium 9.8 mg/dl (8.4-10.2); Carbon Dioxide 27 mmol/L (22.0-30.0); Chloride 107 mmol/L (98-107); Estimated Glomerular Filt Rate 100 ml/min (>60); GFR (African American) 121 ML/MIN (>60); Lipase 77 U/L (23-300); Sodium 145 mmol/L (136-145); Total Protein,Serum 7.8 g/dl (6.3-8.2)
--- NOTE | 2025-03-17 12:00 | HMH.EDGENADL ---
Discharge Plan Disposition Patient Disposition: Admitted Condition: Fair Clinical Impressions Clinical Impression: Hypoglycemia, Hypokalemia Discharge ED Provider: Soha Ramirez General Adult HPI General Chief complaint: Hyper/Hypoglycemia Stated complaint: sweaty weakness slurred speech Time Seen by Provider: 03/17/25 11:39 History of Present Illness HPI narrative: This patient is a 54-year-old male with a history of insulin-dependent diabetes, hypertension, hyperlipidemia, extensive cardiovascular disease of CAD status post stenting presenting to the emergency department for evaluation of concern for diaphoresis and general weakness. Patient took his insulin this morning and then was eating some waffles when noted that he was extremely diaphoretic, seem to have slurred speech, and just looked very weak overall. She thought it could be a heart attack, as he has a history of multiple MIs in the past. He denies any chest pain or arm pain, and he typically does have those with CA. He states that overall he just feels very weak and sweaty. No pain anywhere, no headache or visual disturbance, no numbness, tingling, unilateral weakness. Fingerstick blood glucose upon arrival is 45. No recent illnesses such as fevers, cough, congestion, abdominal pain, nausea, vomiting, or other acute infectious symptoms. Related Data Home Medications ?Medication ?Instructions ?Recorded ?Confirmed atorvastatin 80 mg tablet (Lipitor) 80 mg PO DAILY 05/30/23 03/17/25 clopidogrel 75 mg tablet (Plavix) 75 mg PO DAILY 05/30/23 03/17/25 metformin 1,000 mg tablet 1,000 mg PO BID 05/30/23 03/17/25 sertraline 100 mg tablet 100 mg PO DAILY 05/30/23 03/17/25 metoprolol succinate 100 mg 100 mg PO DAILY 03/26/24 03/17/25 tablet,extended release 24 hr cetirizine 10 mg tablet 10 mg PO DAILY 05/20/24 03/17/25 omeprazole 40 mg capsule,delayed 40 mg PO DAILY 05/20/24 03/17/25 release famotidine 40 mg tablet 40 mg PO HS 08/31/24 03/17/25 fluticasone propionate 50 2 spray intranasal DAILY 03/12/25 03/17/25 mcg/actuation nasal spray,suspension bupropion HCl 150 mg 24 hr tablet, 150 mg PO DAILY 03/17/25 03/17/25 extended release glimepiride 4 mg tablet 4 mg PO DAILY 03/17/25 03/17/25 insulin glargine 100 60 unit SQ DAILY 03/17/25 03/17/25 unit-lixisenatide 33 mcg/mL subcutaneous pen ([facility]iqua ) losartan 100 mg tablet 100 mg PO DAILY 03/17/25 03/17/25 Previous Rx's ?Medication ?Instructions ?Recorded isosorbide mononitrate 60 mg 60 mg PO DAILY 30 days #30 tabs 09/02/24 tablet,extended release 24 hr Allergies Allergy/AdvReac Type Severity Reaction Status Date / Time Penicillins Allergy Verified 03/12/25 11:07 [facility] Disclaimer: The information contained in this section may have been updated after the patient was seen, as this information can be updated by other users. Medical History Angina pectoris Diabetes mellitus, type 2 History of left heart catheterization (LHC) Hyperlipidemia Hypertension Surgical History History of heart artery stent Family History Other No significant family history Social History (Updated 03/17/25 @ 17:16 by Swati Messer RN) Smoking Status: Never smoker alcohol intake: never substance use type: denies use current occupational status: employed Travel in the last 8 weeks?: None Have you lived/traveled outside [place] in past 30 days?: No Contact w/someone who lives/traveled outside [place] past 30 days?: No Exposure to someone with infectious disease in past 14 days?: No Do you have a fever (greater than 100.4 F or 38 C)?: No Have you tested positive for COVID-19?: No Exposed to someone with COVID-19 in past 14 days?: No Do you have a sore throat?: No Do you have a cough?: No Do you have any weakness?: No Are you experiencing any nausea/vomitting?: No Do you have any diarrhea?: No Are you experiencing any unusual bleeding?: No Do you have any muscle aches/pain?: No Do you have any abdominal pain?: No Are you experiencing loss of taste or smell?: No Other Medical History Have you received the Flu Vaccine for this season: No Have you received the Pneumonia Vaccine: No ROS Obtained: Yes All systems reviewed & no additional complaints except as documented Physical Exam General General appearance: alert Comment: Pale, very diaphoretic Head Head exam: atraumatic and normocephalic Eye Eye exam: Present normal appearance, PERRL and EOMI ENT ENT exam: Present normal exam, normal oropharynx, mucous membranes moist and normal external ear exam Neck Neck exam: Present normal inspection, full ROM and trachea midline; Absent tenderness Chest Chest inspection: Present normal inspection and symmetric chest wall rise; Absent tenderness Respiratory Respiratory exam: Present normal lung sounds bilaterally; Absent respiratory distress, wheezes, stridor or accessory muscle use Cardiovascular Cardiovascular exam: Present regular rate and normal rhythm Abdominal Exam Abdominal exam: Present soft; Absent distention, tenderness or guarding Extremities Exam Extremities exam: Present normal inspection, full ROM and normal capillary refill; Absent tenderness or edema Back Exam Back exam: Present normal inspection and full ROM; Absent tenderness Neurological Exam Neurological exam: Present alert, oriented X3, CN II-XII intact and normal gait; Absent motor sensory deficit Psychiatric Psychiatric exam: Present normal affect and normal mood Skin Skin exam: Present diaphoresis Medical Decision Making Medical Records Medical records reviewed: Yes I reviewed the patient's medical records. Screening: Per USPSTF and CDC recommendations, given the prevalence of disease in our region, it is our hospital?s policy to screen for HIV and viral Hepatitis for all patients aged 18 and over and those with ongoing risk factors. [place] Inquiry Pt receiving controlled substance: No Vital Signs: 03/17/25 11:34 03/17/25 11:41 03/17/25 12:00 Temperature 98.3 F Temperature Source Oral Pulse Rate 90 82 Pulse Rate [Right Radial] 79 Respiratory Rate 20 18 18 Blood Pressure 192/109 H 195/114 H Blood Pressure [Right Arm] 195/114 H Blood Pressure Mean 136 143 Blood Pressure Mean [Right Arm] 141 Blood Pressure Source Blood Pressure Source [Right Arm] Manual Cuff/ Doppler Blood Pressure Position [Right Arm] Sitting 02 Sat by Pulse Oximetry 94 L 95 92 L Oxygen Delivery Method Room Air 03/17/25 12:30 03/17/25 13:00 03/17/25 13:30 Temperature Temperature Source Pulse Rate 82 82 78 Pulse Rate [Right Radial] Respiratory Rate 16 18 16 Blood Pressure 190/116 H 201/120 H 192/117 H Blood Pressure [Right Arm] Blood Pressure Mean 140 137 145 Blood Pressure Mean [Right Arm] Blood Pressure Source Blood Pressure Source [Right Arm] Blood Pressure Position [Right Arm] 02 Sat by Pulse Oximetry 92 L 93 L 92 L Oxygen Delivery Method 03/17/25 14:00 03/17/25 14:30 03/17/25 15:00 Temperature Temperature Source Pulse Rate 82 83 87 Pulse Rate [Right Radial] Respiratory Rate 17 18 16 Blood Pressure 184/109 H 180/106 H 181/98 H Blood Pressure [Right Arm] Blood Pressure Mean 126 Blood Pressure Mean [Right Arm] Blood Pressure Source Blood Pressure Source [Right Arm] Blood Pressure Position [Right Arm] 02 Sat by Pulse Oximetry 95 94 L 93 L Oxygen Delivery Method Room Air Room Air 03/17/25 15:19 03/17/25 15:54 Temperature 97.8 F Temperature Source Oral Pulse Rate 90 88 Pulse Rate [Right Radial] Respiratory Rate 16 16 Blood Pressure 184/104 H 166/101 H Blood Pressure [Right Arm] Blood Pressure Mean 124 Blood Pressure Mean [Right Arm] Blood Pressure Source Automatic Cuff Blood Pressure Source [Right Arm] Blood Pressure Position [Right Arm] 02 Sat by Pulse Oximetry 95 Oxygen Delivery Method Room Air Lab Data Lab results reviewed: Yes I reviewed the patient's lab results. Lab Results 03/17/25 11:36: WBC 14.9 H, RBC 6.56 H, Hgb 17.3, Hct 53.7 H, MCV 81.9, MCH 26.4 L, MCHC 32.2, RDW 13.3, Plt Count 290, MPV 8.6, Neut % (Auto) 44.2, Lymph % (Auto) 36.9, [place] % (Auto) 12.3 H, Eos % (Auto) 5.3, Baso % (Auto) 0.7, Neut # (Auto) 6.6, Lymph # (Auto) 5.5 H, [place] # (Auto) 1.8 H, Eos # (Auto) 0.8 H, Baso # (Auto) 0.1, Total Counted 100, Neutrophils % (Manual) 47, Lymphocytes % (Manual) 38, Atypical Lymphs % 2.0, Monocytes % (Manual) 8, Eosinophils % (Manual) 5 H, Platelet Estimate Normal, RBC Morphology Normal, D-Dimer 0.45, Sodium 145, Potassium 3.0 L, Chloride 107, Carbon Dioxide 27, Anion Gap 14.0, BUN 15, Creatinine 0.80, Estimated GFR 100, Est GFR ( Amer) 121, Glucose 46 L*, Calcium 9.8, Total Bilirubin 0.8, AST 37, ALT 41, Alkaline Phosphatase 119, Troponin I < 0.01, C-Reactive Protein 0.9, Total Protein 7.8 D, Albumin 4.8, Globulin 3.0, Albumin/Globulin Ratio 1.6, Lipase 77, Procalcitonin 0.031 03/17/25 11:43: VBG pH 7.33, VBG pCO2 43.3, VBG pO2 59.9 H, VBG HCO3 22.2 L, VBG Total CO2 23.5, VBG O2 Saturation 89.0 H, VBG Base Excess -3.8 L, VBG Lactic Acid 2.9 H 03/17/25 12:56: Urine Color Yellow, Urine Appearance Clear, Urine pH 6.0, Ur Specific [place] <= 1.005, Urine Protein 1+ A, Urine Glucose (UA) 1+, Urine Ketones Negative, Urine Blood Negative, Urine Nitrate Negative, Urine Bilirubin Negative, Urine Urobilinogen 0.2, Ur Leukocyte Esterase Negative, Urine RBC None, Urine WBC None, Ur Squamous Epith Cells None, Urine Bacteria None 03/17/25 14:32: Troponin I < 0.01 03/17/25 11:36 03/17/25 11:36 Orders (Tests/Meds): ED MEDICATIONS Generic Name Dose Route Start Last Admin Trade Name Freq PRN Reason Stop Dose Admin Acetaminophen 650 mg 03/17/25 16:05 Acetaminophen 325mg Tab PO 04/16/25 16:04 Q4HP PRN Fever or Mild Pain (1-3) Enoxaparin Sodium 40 mg 03/18/25 09:00 Enoxaparin 40mg/0.4ml Syringe SUBCUT 04/17/25 08:59 DAILY RICCO Dextrose/Lactated Ringer's 1,000 mls @ 75 mls/hr 03/17/25 14:45 03/17/25 14:49 Dextrose 5% In Lactated Ringer's 1000ml IV 04/16/25 14:44 75 mls/hr .[id number] RICCO Administration Ondansetron HCl 4 mg 03/17/25 16:05 Ondansetron 4mg/2ml Vial IV 04/16/25 16:04 Q8HP PRN Nausea Discontinued Medications Generic Name Dose Route Start Last Admin Trade Name Frecarlos PRN Reason Stop Dose Admin Dextrose 50 ml 03/17/25 11:41 03/17/25 11:45 Dextrose 50% 50ml Syringe (Crash Cart) IVP 03/17/25 11:42 50 ml ONCE ONE Administration Potassium Chloride/Water 100 mls @ 100 mls/hr 03/17/25 12:14 03/17/25 12:21 Potassium Chloride 10meq/100ml Ivpb IV 03/17/25 13:13 100 mls/hr ONCE ONE Administration Lactated Ringer's 1,000 mls @ 999 mls/hr 03/17/25 12:14 03/17/25 12:21 Lactated Ringer's 1000 Ml Bag IV 03/17/25 13:14 999 mls/hr .Q1H1M ONE Administration Cefepime HCl 2 gm/ Sodium 100 mls @ 200 mls/hr 03/17/25 15:04 03/17/25 15:30 Chloride IV 03/17/25 15:33 200 mls/hr ONCE ONE Administration Potassium Chloride 40 meq 03/17/25 12:14 03/17/25 12:20 Potassium Chloride 20meq Tab PO 03/17/25 12:15 40 meq ONCE ONE Administration ORDERS Category Date Time Status CXR --portable [XR chest portable] Stat Exams 03/17/25 Completed CRP [C-Reactive Protein] Stat Lab 03/17/25 11:36 Completed Complete Blood Count Auto Diff Stat Lab 03/17/25 11:36 Completed Comprehensive Metabolic Panel Stat Lab 03/17/25 11:36 Completed D-Dimer Stat Lab 03/17/25 11:36 Completed Lipase Stat Lab 03/17/25 11:36 Completed Procalcitonin Stat Lab 03/17/25 11:36 Completed Trop I [Troponin I] Stat Lab 03/17/25 11:36 Completed Troponin I Q3H Lab 03/17/25 14:32 Completed Troponin I Q3H Lab 03/17/25 17:35 Received UA [Urinalysis and Microscopic] Stat Lab 03/17/25 12:56 Completed Blood Culture Stat Micro 03/17/25 16:05 Received VBG [Venous Blood Gas] Stat RT 03/17/25 11:43 Completed ECG Data Tracing #1: I reviewed this ECG and interpreted as documented below: Normal sinus rhythm with a ventricular of 83 bpm. Incomplete right bundle branch block. No acute ST changes concerning for STEMI. ECG initial impression date: 03/17/25 ECG initial impression time: 11:38 Medical Decision Narrative: In summary, this patient is a 54-year-old male presenting to the Emergency Department for evaluation of general weakness, diaphoresis, lightheadedness, shakiness. Fingerstick glucose upon arrival was 45. Differential diagnoses considered include but are not limited to hypoglycemia, insulin misuse, sepsis, ACS, dysrhythmia. Ruling out the most morbid conditions drove assessment. It should be noted patient's history includes extensive cardiovascular history, hypertension, hyperlipidemia, type 2 diabetes which may not be at goal therapy. This complicates all aspects of care by increasing patient's risk for morbidity. On exam, the patient is sitting upright. He is very pale and diaphoretic. He is mildly tachycardic is not significantly hypertensive with systolics in the 200s. Fingerstick blood glucose upon arrival was 45. He was immediately given an amp of D50. Recheck fingerstick glucose after 30 minutes was 140. He has no focal neurologic deficits concerning for CVA, and he has no chest pain or acute changes noted on EKG. Workup included CBC, CMP, CRP, procalcitonin, lactic acid, troponin, lipase, urinalysis. On reassessments, patient is resting comfortably. He is persistently severely hypertensive. Labs were obtained that demonstrated hypokalemia, for which IV and oral potassium repletion were ordered as well as a bolus of IV fluids. 30-minute fingerstick blood glucoses were checked, and after receiving D50 he reached a peak of 140 but then slowly trended back downward to 86 despite eating a balanced meal in addition to eating the D50. He became symptomatic with hypoglycemia again. No concerns or complaints. No pain, no fever no other issues. He does have a leukocytosis, suspect this is the cause of hypoglycemia was considered. Patient was started on D5 LR given that his hypoglycemia had recurred. He was also started on IV cefepime for empiric antibiotic coverage, as he is penicillin allergic. For his recurrent hypoglycemia, I feel he would benefit from admission for further monitoring. I had an interactive discussion with the hospitalist who admitted the patient in stable condition. Critical Care Critical Care Time Critical Care Time: Yes Attestation: On 03/17/25, the high probability of a clinically significant, sudden or life threatening deterioration of the following system(s) required my full and direct attention, intervention and personal management. The time I documented below is in addition to time spent performing reported procedures but includes the following listed in this critical care notation. Total Time Total Critical Care Time: 45
--- NOTE | 2025-03-17 12:02 | PC.NURSE ---
POC GLU [id number]
[2025-03-17 12:04] LABS: Lactate Venous 2.9 mmol/L (0.4-2.0)
[2025-03-17 12:05] LABS: D-Dimer 0.45 ug/mL (0.0-0.5)
[2025-03-17 12:06] LABS: Basophils # 0.1 K/mm3 (0-0.2); Basophils % 0.7 % (0.1-2.0); Eosinophils # 0.8 Kmm3 (0.0-0.4); Eosinophils % 5.3 % (0.1-12.0); Hematocrit 53.7 % (42.0-52.0); Hemoglobin 17.3 g/dL (14.1-18.0); Immature Granulocytes # 0.09 10^3uL; Immature Granulocytes % 0.6 %; Lymphocytes # 5.5 K/mm3 (0.7-4.5); Lymphocytes % 36.9 % (10-50); Mean Corpuscular HGB Conc 32.2 g/dL (31.8-35.4); Mean Corpuscular Hemoglobin 26.4 pg (27.0-31.2); Mean Corpuscular Volume 81.9 fl (80-94); Mean Platelet Volume 8.6 fl (7.4-10.4); Monocytes # 1.8 K/mm3 (0.1-1.0); Monocytes % 12.3 % (1.7-9.3); Neutrophils # 6.6 K/mm3 (1.8-7.8); Neutrophils % 44.2 % (37.0-80.0); Nucleated Red Blood Cells # 0 10^3/uL; Nucleated Red Blood Cells % 0 %; Platelet Count 290 K/mm3 (142-424); Red Blood Count 6.56 M/mm3 (4.60-6.20); Red Cell Distribution Width 13.3 % (11.5-17.5); Red Cell Distribution Width-SD 38.5 fL; White Blood Count 14.9 K/mm3 (4.8-10.8)
[2025-03-17 12:07] LABS: MANUAL DIFFERENTIAL MANUAL DIFFERENTIAL (MANUAL DIFF)
[2025-03-17 12:08] LABS: Glucose 46 mg/dl (74-100)
[2025-03-17 12:12] LABS: Troponin I < 0.01 ng/ml (0.00-0.034)
[2025-03-17] MEDS: POTASSIUM CHLORIDE 20MEQ TAB 40 MEQ PO (12:20)
[2025-03-17] MEDS: LACTATED RINGERS 1000ML 1,000 ML 999 ML IV (12:21)
[2025-03-17] MEDS: KCl 10mEq/100ml 100 ML 100 MEQ IV (12:21)
[2025-03-17 12:34] LABS: Eosinophils % 5 % (0-3); Lymphocytes % 38 % (10-50); Monocytes % 8 % (2-9); Neutrophils % 47 % (42-76); Platelet Estimate Normal; RBC Morphology Normal; Total Cells Counted 100
[2025-03-17 12:41] LABS: C-Reactive Protein 0.9 mg/L (0-4)
[2025-03-17 12:54] LABS: Procalcitonin 0.031 ng/mL (0.0-2.0)
[2025-03-17 12:59] LABS: Microscopic, Urine URINE MICROSCOPIC (MICROSCOPIC)
[2025-03-17 13:10] LABS: Appearance,Urine CLEAR (Clear); Bilirubin,Urine Negative (Negative); Blood, Urine Negative (Negative); Color,Urine YELLOW (Yellow); Glucose,Urine (UA) 1+ (Negative); Ketones,Urine Negative (Negative); Leukocyte Esterase,Urine Negative (Negative); Nitrate,Urine Negative (Negative); Protein,Urine 1+ (Negative); Specific Gravity, Urine <= 1.005 (1.005-1.030); Urobilinogen,Urine 0.2 EU/dl (0.2)
--- NOTE | 2025-03-17 13:28 | PC.NURSE ---
dietary called ordered tray
[2025-03-17] MEDS: DEXTROSE 5%-LACTATED RINGERS 1,000 ML 75 ML IV (14:49)
[2025-03-17 15:01] LABS: Troponin I < 0.01 ng/ml (0.00-0.034)
--- NOTE | 2025-03-17 15:06 | PC.NURSE ---
house notified of admission
--- NOTE | 2025-03-17 15:15 | HMH.PHAINT1 ---
Pharmacy Intervention Comments: MEDICATION RECONCILIATION COMPLETED ON PATIENT USING EXTERNAL FILL HISTORY FROM PHARMACY. -LYNETTE OVALLE, ANGELITAD
[2025-03-17] MEDS: CEFEPIME HCL 2 GM in 0.9 % SODIUM CHLORIDE 100 ML IV (15:30)
[2025-03-17 16:05] LABS: Reflex Lactic Add Lactic Reflex
--- NOTE | 2025-03-17 16:05 | EXP.HP ---
History of Present Illness *Admission Date: 03/17/25 *Reason for visit:: Weakness, diaphoresis *History of present illness: Ralph Dunn is a 54-year-old male with a medical history significant for type 2 diabetes on insulin who presents with progressive weakness, and an episode of diaphoresis this morning. Patient states he has been feeling weak for the past 4 weeks, cites family stress. Denies chest pain, shortness of breath, abdominal pain, fever/chills, diarrhea constipation. Patient states he has been taking 60 units of Soliqua in the morning, 30 units of glargine in the afternoon, along with metformin and glimepiride. He states he has had low blood sugars for which he usually eats a meal and improves symptoms. He also states he has not been checking his blood sugars but does have a working glucometer at home. This morning, patient became profoundly weak with diaphoresis at which point his daughter and urged him to go to the ED. En route, EMS found his sugar to be 45. Workup in the ED significant for glucose 46, WBC 14.9 otherwise unremarkable CBC, CMP, UA, CXR. He was persistently hypoglycemic in spite of D50. He was started on D5 continuous fluids. Case discussed with ED provider and decision was made to admit patient for hypoglycemia. I advised patient ED provider to start cefepime in setting of leukocytosis until we can rule out bacteremia. [facility] Disclaimer: The information contained in this section may have been updated after the patient was seen, as this information can be updated by other users. Medical History Angina pectoris Diabetes mellitus, type 2 History of left heart catheterization (LHC) Hyperlipidemia Hypertension Surgical History History of heart artery stent Family History Other No significant family history Social History (Updated 03/17/25 @ 17:16 by Swati Messer RN) Smoking Status: Never smoker alcohol intake: never substance use type: denies use current occupational status: employed Travel in the last 8 weeks?: None Have you lived/traveled outside [place] in past 30 days?: No Contact w/someone who lives/traveled outside [place] past 30 days?: No Exposure to someone with infectious disease in past 14 days?: No Do you have a fever (greater than 100.4 F or 38 C)?: No Have you tested positive for COVID-19?: No Exposed to someone with COVID-19 in past 14 days?: No Do you have a sore throat?: No Do you have a cough?: No Do you have any weakness?: No Are you experiencing any nausea/vomitting?: No Do you have any diarrhea?: No Are you experiencing any unusual bleeding?: No Do you have any muscle aches/pain?: No Do you have any abdominal pain?: No Are you experiencing loss of taste or smell?: No Other Medical History Have you received the Flu Vaccine for this season: No Have you received the Pneumonia Vaccine: No Meds Home Medications and Allergies Home Medications ?Medication ?Instructions ?Recorded ?Confirmed ?Type atorvastatin 80 mg tablet (Lipitor) 80 mg PO DAILY 05/30/23 03/17/25 History clopidogrel 75 mg tablet (Plavix) 75 mg PO DAILY 05/30/23 03/17/25 History metformin 1,000 mg tablet 1,000 mg PO BID 05/30/23 03/17/25 History sertraline 100 mg tablet 100 mg PO DAILY 05/30/23 03/17/25 History metoprolol succinate 100 mg 100 mg PO DAILY 03/26/24 03/17/25 History tablet,extended release 24 hr cetirizine 10 mg tablet 10 mg PO DAILY 05/20/24 03/17/25 History omeprazole 40 mg capsule,delayed 40 mg PO DAILY 05/20/24 03/17/25 History release famotidine 40 mg tablet 40 mg PO HS 08/31/24 03/17/25 History isosorbide mononitrate 60 mg 60 mg PO DAILY 30 days #30 tabs 09/02/24 03/17/25 Rx tablet,extended release 24 hr fluticasone propionate 50 2 spray intranasal DAILY 03/12/25 03/17/25 History mcg/actuation nasal spray,suspension bupropion HCl 150 mg 24 hr tablet, 150 mg PO DAILY 03/17/25 03/17/25 History extended release glimepiride 4 mg tablet 4 mg PO DAILY 03/17/25 03/17/25 History insulin glargine 100 60 unit SQ DAILY 03/17/25 03/17/25 History unit-lixisenatide 33 mcg/mL subcutaneous pen (Soliqua 100/33) losartan 100 mg tablet 100 mg PO DAILY 03/17/25 03/17/25 History New Prescriptions to Start Prescriptions: Allergies Allergy/AdvReac Type Severity Reaction Status Date / Time Penicillins Allergy Verified 03/12/25 11:07 Exam Data for Last 24 hours Vital signs and Labs for Last 24 Hours: Temp Pulse Resp BP Pulse Ox O2 Del Method 97.8 F 88 16 166/101 H 95 Room Air 03/17/25 15:54 03/17/25 15:54 03/17/25 15:54 03/17/25 15:54 03/17/25 15:19 03/17/25 15:54 Laboratory Results - last 24 hr 03/17/25 11:36: WBC 14.9 H, RBC 6.56 H, Hgb 17.3, Hct 53.7 H, MCV 81.9, MCH 26.4 L, MCHC 32.2, RDW 13.3, Plt Count 290, MPV 8.6, Neut % (Auto) 44.2, Lymph % (Auto) 36.9, Leake % (Auto) 12.3 H, Eos % (Auto) 5.3, Baso % (Auto) 0.7, Neut # (Auto) 6.6, Lymph # (Auto) 5.5 H, Leake # (Auto) 1.8 H, Eos # (Auto) 0.8 H, Baso # (Auto) 0.1, Total Counted 100, Neutrophils % (Manual) 47, Lymphocytes % (Manual) 38, Atypical Lymphs % 2.0, Monocytes % (Manual) 8, Eosinophils % (Manual) 5 H, Platelet Estimate Normal, RBC Morphology Normal, D-Dimer 0.45, Sodium 145, Potassium 3.0 L, Chloride 107, Carbon Dioxide 27, Anion Gap 14.0, BUN 15, Creatinine 0.80, Estimated GFR 100, Est GFR ( Amer) 121, Glucose 46 L*, Calcium 9.8, Total Bilirubin 0.8, AST 37, ALT 41, Alkaline Phosphatase 119, Troponin I < 0.01, C-Reactive Protein 0.9, Total Protein 7.8 D, Albumin 4.8, Globulin 3.0, Albumin/Globulin Ratio 1.6, Lipase 77, Procalcitonin 0.031 03/17/25 11:43: VBG pH 7.33, VBG pCO2 43.3, VBG pO2 59.9 H, VBG HCO3 22.2 L, VBG Total CO2 23.5, VBG O2 Saturation 89.0 H, VBG Base Excess -3.8 L, VBG Lactic Acid 2.9 H 03/17/25 12:56: Urine Color Yellow, Urine Appearance Clear, Urine pH 6.0, Ur Specific Howe <= 1.005, Urine Protein 1+ A, Urine Glucose (UA) 1+, Urine Ketones Negative, Urine Blood Negative, Urine Nitrate Negative, Urine Bilirubin Negative, Urine Urobilinogen 0.2, Ur Leukocyte Esterase Negative, Urine RBC None, Urine WBC None, Ur Squamous Epith Cells None, Urine Bacteria None 03/17/25 14:32: Troponin I < 0.01 I & O for Last 24 hours: Intake & Output 03/14/25 03/15/25 03/16/25 03/17/25 23:59 23:59 23:59 23:59 Weight 2.466 kg Constitutional Constitutional: no acute distress *Routine HEENT Exam Head: Present normocephalic Eye: Present EOMI and PERRL ENT: Present mucous membranes moist *Routine Neck Exam Neck: Present supple; Absent lymphadenopathy *Routine Respiratory Exam Respiratory: Present CTA bilaterally *Routine Cardiovascular Exam Cardiovascular: Present RRR *Routine Abdominal Exam Abdominal: Present soft and normoactive bowel sounds; Absent tenderness *Routine Rectal Exam Rectal:: deferred *Routine Genitalia Exam Genitalia:: deferred *Routine Extremities Exam Extremities: Absent cyanosis, clubbing or edema *Routine Skin Exam Skin: Present warm; Absent rash *Routine Neurological Exam Neurological: Present alert and oriented X3 Assessment and Plan *Assessment and plan (1) Hypoglycemia: Status: Acute Category: Medical Code(s): E16.2 - Hypoglycemia, unspecified Plan Ralph Dunn is a 54-year-old male with a medical history significant for type 2 diabetes on insulin who presents with progressive weakness, and an episode of diaphoresis this morning. Patient states he has been feeling weak for the past 4 weeks, cites family stress. Denies chest pain, shortness of breath, abdominal pain, fever/chills, diarrhea constipation. Patient states he has been taking 60 units of Soliqua in the morning, 30 units of glargine in the afternoon, along with metformin and glimepiride. He states he has had low blood sugars for which he usually eats a meal and improves symptoms. He also states he has not been checking his blood sugars but does have a working glucometer at home. This morning, patient became profoundly weak with diaphoresis at which point his daughter and urged him to go to the ED. En route, EMS found his sugar to be 45. Workup in the ED significant for glucose 46, WBC 14.9 otherwise unremarkable CBC, CMP, UA, CXR. He was persistently hypoglycemic in spite of D50. He was started on D5 continuous fluids. Case discussed with ED provider and decision was made to admit patient for hypoglycemia. I advised patient ED provider to start cefepime in setting of leukocytosis until we can rule out bacteremia. #Hypoglycemia #Weakness #Type 2 diabetes taking insulin, glimepiride #Medication side effect ? Presents with 4-week onset of weakness, intermittent onset of profound weakness suggesting hypoglycemia. ? He is on a significant insulin regimen including Soliqua 65 units in the morning, glargine 30 units at night, in addition to glimepiride, metformin. Last A1c in August 2020 for 7.9%, not suggesting that he really needs insulin. ? In addition, the combination of high-dose insulin with sulfonylurea/glimepiride puts him at high risk for hypoglycemia. Likely contributing to weakness over the past few weeks as A1c has possibly improved. ? Hold insulin, glimepiride, metformin at this time. Plan to discontinue glimepiride, and and reduce insulin regimen at discharge. ? Continue D5 at 75 mL/h. Blood sugar checks every 2 hours for now. Last check was 117 this evening, improving. ? Follow-up blood cultures to rule out bacteremia in setting of leukocytosis. Continue cefepime until then. ? Follow-up insulin, C-peptide levels. ? Follow-up repeat A1c. #Hypertension ? Continue home Imdur, losartan, metoprolol. #Anxiety/depression ? Continue home bupropion, sertraline. #GERD ? Continue home PPI. Full code DVT prophylaxis: Lovenox 40 mg
[2025-03-17 18:13] LABS: Lactic Acid Follow Up (RFLX 1) 2.1 mmol/L (0.7-2.1)
[2025-03-17 18:19] LABS: Troponin I < 0.01 ng/ml (0.00-0.034)
[2025-03-17 19:42] LABS: Reflex Lactic (2 hrs) Add Lactic Reflex
[2025-03-17 20:24] LABS: Lactic Acid Follow up (RFLX 2) 1.6 mmol/L (0.7-2.1)
[2025-03-17] MEDS: ISOSORBIDE MONO 60MG TAB.ER.24H 60 MG PO (21:04)
[2025-03-17] MEDS: ATORVASTATIN 40MG TABLET 80 MG PO (21:04)
[2025-03-17] MEDS: IRBESARTAN 150MG TAB 150 MG PO (21:05)
[2025-03-17] MEDS: PANTOPRAZOLE 40MG TABLET 40 MG PO (21:05)
[2025-03-17] MEDS: CLOPIDOGREL 75MG TAB 75 MG PO (21:05)
[2025-03-17] MEDS: METOPROLOL SUCCINATE XL 100MG TABLET 100 MG PO (21:07)
[2025-03-17 22:05] LABS: Hemoglobin A1C 8.7 % (4.0-6.0)
[2025-03-18] VITALS (8 sets, daily range): BP systolic 148–169; BP diastolic 86–107; PULSE 60–82; RESP 14–20; TEMP 36.6–37.1; O2SAT 89–94; BMI 32.5
[2025-03-18 00:34] LABS: POC Glucose,Bedside 172 (70-110)
[2025-03-18 00:34] LABS: POC Glucose,Bedside 180 (70-110)
[2025-03-18 00:34] LABS: POC Glucose,Bedside 113 (70-110)
[2025-03-18 00:34] LABS: POC Glucose,Bedside 224 (70-110)
[2025-03-18] MEDS: DEXTROSE 5%-LACTATED RINGERS 1,000 ML 75 ML IV (03:59)
[2025-03-18 06:53] LABS: Albumin Level 3.5 g/dl (3.5-5.0); Chloride 107 mmol/L (98-107); Sodium 138 mmol/L (136-145)
[2025-03-18 06:54] LABS: Potassium 3.8 mmoL/L (3.5-5.1)
[2025-03-18 06:56] LABS: Alanine Aminotransferase 29 U/L (12-78); Albumin/Globulin Ratio 1.8 (1.1-1.8); Alkaline Phosphatase 104 U/L (38-126); Anion Gap 8.8 mEq/L (5-15); Aspartate Amino Transferase 25 U/L (17-59); Bilirubin,Total 0.5 mg/dl (0.2-1.3); Blood Urea Nitrogen 10 mg/dl (9-20); Carbon Dioxide 26 mmol/L (22.0-30.0); Creatinine Clearance Estimated 157 mL/min (50-200); Estimated Glomerular Filt Rate 117 ml/min (>60); GFR (African American) 141 ML/MIN (>60); Total Protein,Serum 5.5 g/dl (6.3-8.2)
[2025-03-18 06:57] LABS: Calcium 8.3 mg/dl (8.4-10.2); Glucose 247 mg/dl (74-100); Magnesium 1.4 mg/dl (1.6-2.3)
[2025-03-18 07:15] LABS: POC Glucose,Bedside 220 (70-110)
[2025-03-18 07:15] LABS: POC Glucose,Bedside 163 (70-110)
[2025-03-18 07:15] LABS: POC Glucose,Bedside 208 (70-110)
[2025-03-18 07:47] LABS: Basophils # 0.1 K/mm3 (0-0.2); Basophils % 0.9 % (0.1-2.0); Eosinophils # 0.5 Kmm3 (0.0-0.4); Eosinophils % 5.7 % (0.1-12.0); Hematocrit 44.9 % (42.0-52.0); Immature Granulocytes # 0.04 10^3uL; Immature Granulocytes % 0.5 %; Lymphocytes # 2.2 K/mm3 (0.7-4.5); Lymphocytes % 25.5 % (10-50); Mean Corpuscular Hemoglobin 27.1 pg (27.0-31.2); Mean Corpuscular Volume 82.1 fl (80-94); Mean Platelet Volume 9.2 fl (7.4-10.4); Monocytes # 0.9 K/mm3 (0.1-1.0); Monocytes % 10.3 % (1.7-9.3); Neutrophils % 57.1 % (37.0-80.0); Nucleated Red Blood Cells # 0 10^3/uL; Nucleated Red Blood Cells % 0 %; Platelet Count 169 K/mm3 (142-424); Red Blood Count 5.47 M/mm3 (4.60-6.20); Red Cell Distribution Width-SD 38.8 fL; White Blood Count 8.7 K/mm3 (4.8-10.8)
[2025-03-18] MEDS: MAGNESIUM SULFATE IN WATER 2 GM/50 ML PIGGYBACK IV ×3 (07:53→10:10)
[2025-03-18 08:00] LABS: Hemoglobin 14.6 g/dL (14.1-18.0)
[2025-03-18] MEDS: CLOPIDOGREL 75MG TAB 75 MG PO (08:02)
[2025-03-18] MEDS: buPROPion HCl SR 150MG TAB 150 MG PO (08:02)
[2025-03-18] MEDS: FLUTICASONE PROP 50MCG NASAL SPRAY 16GM 2 SPRAY NS (08:02)
[2025-03-18] MEDS: IRBESARTAN 150MG TAB 150 MG PO (08:02)
[2025-03-18] MEDS: METOPROLOL SUCCINATE XL 100MG TABLET 100 MG PO (08:03)
[2025-03-18] MEDS: SERTRALINE 100MG TABLET 100 MG PO (08:03)
[2025-03-18] MEDS: ISOSORBIDE MONO 60MG TAB.ER.24H 60 MG PO (08:03)
[2025-03-18] MEDS: LORATADINE 10MG TABLET 10 MG PO (08:03)
[2025-03-18] MEDS: ENOXAPARIN 40MG/0.4ML SYRINGE 40 MG SUBCUT (08:06)
[2025-03-18] MEDS: SOLIQUA 30 EACH SUBCUT (10:29)
--- NOTE | 2025-03-18 12:37 | P.DS_ITS ---
General Admission date:: 03/17/25 Discharge date: 03/18/25 HPI HPI HPI: Ralph Dunn is a 54-year-old male with a medical history significant for type 2 diabetes on insulin who presents with progressive weakness, and an episode of diaphoresis this morning. Patient states he has been feeling weak for the past 4 weeks, cites family stress. Denies chest pain, shortness of breath, abdominal pain, fever/chills, diarrhea constipation. Patient states he has been taking 60 units of Soliqua in the morning, 30 units of glargine in the afternoon, along with metformin and glimepiride. He states he has had low blood sugars for which he usually eats a meal and improves symptoms. He also states he has not been checking his blood sugars but does have a working glucometer at home. This morning, patient became profoundly weak with diaphoresis at which point his daughter and urged him to go to the ED. En route, EMS found his sugar to be 45. Workup in the ED significant for glucose 46, WBC 14.9 otherwise unremarkable CBC, CMP, UA, CXR. He was persistently hypoglycemic in spite of D50. He was started on D5 continuous fluids. Case discussed with ED provider and decision was made to admit patient for hypoglycemia. I advised patient ED provider to start cefepime in setting of leukocytosis until we can rule out bacteremia. Hospital Course Hospital Course Hospital Course: Ralph Dunn is a 53-year-old male with a medical history of coronary artery disease, cardiac stents, hyperlipidemia, hypertension, insulin-dependent diabetes, and GERD. He presented to the emergency department on 03/17/2025 with complaints of diaphoresis, weakness, and confusion. After discussing case with the emergency room physician he was admitted to hospital medicine for acute episode of hypoglycemia, fluids, and close monitoring. He has done well overnight and hypoglycemia was corrected with IV fluids, D5 LR at 75 ml/hr overnight. Home medication was reviewed and changes were made to his diabetic medications, Soliqua 60 mg was changed to Soliqua 30 mg once in the morning, and glimepiride and Lantus 30 units at night was discontinued. He will continue his metformin 1000 mg twice a day. Discussed in length with the patient about checking his blood sugar every morning prior to his Soliqua injection. Additional supplies for blood sugar checks were sent to his home pharmacy. #Hypoglycemia #Weakness #Type 2 diabetes taking insulin, glimepiride, metformin #Medication side effect ? Presents with 4-week onset of weakness, intermittent onset of profound weakness suggesting hypoglycemia. ? He is on a significant insulin regimen including Soliqua 60 units in the morning, glargine 30 units at night, in addition to glimepiride, metformin. Last A1c in August 2020 for 7.9%, not suggesting that he really needs insulin. ? In addition, the combination of high-dose insulin with sulfonylurea/glimepiride puts him at high risk for hypoglycemia. Likely contributing to weakness over the past few weeks as A1c has possibly improved. ? Hold insulin, glimepiride, metformin at this time. Plan to discontinue glimepiride, and and reduce insulin regimen at discharge. ? Follow-up blood cultures to rule out bacteremia in setting of leukocytosis. White count today of 8.7. Elevated white count yesterday likely due to hypoglycemia. Blood culture still pending. ? Follow-up insulin, C-peptide levels. ? Repeat A1c was 7.8%. #Hypertension ? Continue home Imdur, losartan, metoprolol. ?Blood pressures have been slightly elevated during this admission. Discussed with patient to check blood pressure daily and keep a log for his PCP. Discussed with patient the importance of taking blood pressure medications every day. #Anxiety/depression ? Continue home bupropion, sertraline. #GERD ? Continue home PPI. Total time spent on discharge: 33 minutes on chart review, counseling, documentation, and direct care with patient. Exam Data for Last 24 hours Vital signs and Labs for Last 24 Hours: Temp Pulse Resp BP Pulse Ox O2 Del Method 97.9 F 76 17 169/107 H 91 L Room Air 03/18/25 08:01 03/18/25 08:01 03/18/25 08:01 03/18/25 08:01 03/18/25 08:18 03/18/25 11:00 Laboratory Results - last 24 hr 03/17/25 11:36: C-Reactive Protein 0.9, Procalcitonin 0.031 03/17/25 12:56: Urine Color Yellow, Urine Appearance Clear, Urine pH 6.0, Ur Specific [place] <= 1.005, Urine Protein 1+ A, Urine Glucose (UA) 1+, Urine Ketones Negative, Urine Blood Negative, Urine Nitrate Negative, Urine Bilirubin Negative, Urine Urobilinogen 0.2, Ur Leukocyte Esterase Negative, Urine RBC No ne, Urine WBC None, Ur Squamous Epith Cells None, Urine Bacteria None 03/17/25 14:32: Troponin I < 0.01 03/17/25 16:42: POC Glucose 113 H 03/17/25 17:35: Lactate 2.1, Troponin I < 0.01 03/17/25 18:11: POC Glucose 172 H 03/17/25 19:17: POC Glucose 224 H 03/17/25 19:50: Lactate 1.6 03/17/25 21:38: Hemoglobin A1c 8.7 H 03/18/25 00:07: POC Glucose 180 H 03/18/25 02:22: POC Glucose 163 H 03/18/25 04:21: POC Glucose 220 H 03/18/25 05:51: WBC 8.7 D, RBC 5.47, Hgb 14.6 D, Hct 44.9, MCV 82.1, MCH 27.1, MCHC 33.0, RDW 13.0, Plt Count 169 D, MPV 9.2, Neut % (Auto) 57.1, Lymph % (Auto) 25.5, [place] % (Auto) 10.3 H, Eos % (Auto) 5.7, Baso % (Auto) 0.9, Neut # (Auto) 5.0, Lymph # (Auto) 2.2, [place] # (Auto) 0.9, Eos # (Auto) 0.5 H, Baso # (Auto) 0.1, Sodium 138, Potassium 3.8 D, Chloride 107, Carbon Dioxide 26, Anion Gap 8.8, BUN 10 D, Creatinine 0.70, Estimated Creat Clear 157, Estimated GFR 117, Est GFR ( Amer) 141, Glucose 247 H D, Calcium 8.3 L, Magnesium 1.4 L , Total Bilirubin 0.5, AST 25 D, ALT 29 D, Alkaline Phosphatase 104, Total Protein 5.5 L D, Albumin 3.5 D, Globulin 2.0, Albumin/Globulin Ratio 1.8 03/18/25 06:08: POC Glucose 208 H I & O for Last 24 hours: Intake & Output 03/15/25 03/16/25 03/17/25 03/18/25 23:59 23:59 23:59 23:59 Intake Total 550 / 1360 1750 / 1750 Output Total 925 / 1175 1050 / 1050 Balance -375 / 185 700 / 700 Weight 94.12 kg 94.26 kg Constitutional Constitutional: no acute distress *Routine Neck Exam Neck: Present full ROM; Absent JVD *Routine Respiratory Exam Respiratory: Present CTA bilaterally and symmetric chest movement *Routine Cardiovascular Exam Cardiovascular: Present RRR, Normal S1 and Normal S2 *Routine Abdominal Exam Abdominal: Present soft and normoactive bowel sounds; Absent tenderness *Routine Extremities Exam Extremities: Present full ROM and normal capillary refill; Absent edema *Routine Skin Exam Skin: Present intact, dry and warm Detailed Neck Exam: Thyroids Thyroid: Absent bruit Results Data Completed and Pending Labs on day of discharge: Labs from last 24 hours 03/18/25 03/18/25 03/18/25 06:08 05:51 04:21 WBC 8.7 D RBC 5.47 Hgb 14.6 D Hct 44.9 MCV 82.1 MCH 27.1 MCHC 33.0 RDW 13.0 Plt Count 169 D MPV 9.2 Neut % (Auto) 57.1 Lymph % (Auto) 25.5 [place] % (Auto) 10.3 H Eos % (Auto) 5.7 Baso % (Auto) 0.9 Neut # (Auto) 5.0 Lymph # (Auto) 2.2 [place] # (Auto) 0.9 Eos # (Auto) 0.5 H Baso # (Auto) 0.1 Sodium 138 Potassium 3.8 D Chloride 107 Carbon Dioxide 26 Anion Gap 8.8 BUN 10 D Creatinine 0.70 Estimated Creat Clear 157 Estimated GFR 117 Est GFR ( Amer) 141 Glucose 247 H D POC Glucose 208 H 220 H Hemoglobin A1c Lactate Calcium 8.3 L Magnesium 1.4 L Total Bilirubin 0.5 AST 25 D ALT 29 D Alkaline Phosphatase 104 Troponin I C-Reactive Protein Total Protein 5.5 L D Albumin 3.5 D Globulin 2.0 Albumin/Globulin Ratio 1.8 Procalcitonin Urine Color Urine Appearance Urine pH Ur Specific [place] Urine Protein Urine Glucose (UA) Urine Ketones Urine Blood Urine Nitrate Urine Bilirubin Urine Urobilinogen Ur Leukocyte Esterase Urine RBC Urine WBC Ur Squamous Epith Cells Urine Bacteria 03/18/25 03/18/25 03/17/25 02:22 00:07 21:38 WBC RBC Hgb Hct MCV MCH MCHC RDW Plt Count MPV Neut % (Auto) Lymph % (Auto) [place] % (Auto) Eos % (Auto) Baso % (Auto) Neut # (Auto) Lymph # (Auto) [place] # (Auto) Eos # (Auto) Baso # (Auto) Sodium Potassium Chloride Carbon Dioxide Anion Gap BUN Creatinine Estimated Creat Clear Estimated GFR Est GFR ( Amer) Glucose POC Glucose 163 H 180 H Hemoglobin A1c 8.7 H Lactate Calcium Magnesium Total Bilirubin AST ALT Alkaline Phosphatase Troponin I C-Reactive Protein Total Protein Albumin Globulin Albumin/Globulin Ratio Procalcitonin Urine Color Urine Appearance Urine pH Ur Specific [place] Urine Protein Urine Glucose (UA) Urine Ketones Urine Blood Urine Nitrate Urine Bilirubin Urine Urobilinogen Ur Leukocyte Esterase Urine RBC Urine WBC Ur Squamous Epith Cells Urine Bacteria 03/17/25 03/17/25 03/17/25 19:50 19:17 18:11 WBC RBC Hgb Hct MCV MCH MCHC RDW Plt Count MPV Neut % (Auto) Lymph % (Auto) [place] % (Auto) Eos % (Auto) Baso % (Auto) Neut # (Auto) Lymph # (Auto) [place] # (Auto) Eos # (Auto) Baso # (Auto) Sodium Potassium Chloride Carbon Dioxide Anion Gap BUN Creatinine Estimated Creat Clear Estimated GFR Est GFR ( Amer) Glucose POC Glucose 224 H 172 H Hemoglobin A1c Lactate 1.6 Calcium Magnesium Total Bilirubin AST ALT Alkaline Phosphatase Troponin I C-Reactive Protein Total Protein Albumin Globulin Albumin/Globulin Ratio Procalcitonin Urine Color Urine Appearance Urine pH Ur Specific [place] Urine Protein Urine Glucose (UA) Urine Ketones Urine Blood Urine Nitrate Urine Bilirubin Urine Urobilinogen Ur Leukocyte Esterase Urine RBC Urine WBC Ur Squamous Epith Cells Urine Bacteria 03/17/25 03/17/25 03/17/25 17:35 16:42 14:32 WBC RBC Hgb Hct MCV MCH MCHC RDW Plt Count MPV Neut % (Auto) Lymph % (Auto) [place] % (Auto) Eos % (Auto) Baso % (Auto) Neut # (Auto) Lymph # (Auto) [place] # (Auto) Eos # (Auto) Baso # (Auto) Sodium Potassium Chloride Carbon Dioxide Anion Gap BUN Creatinine Estimated Creat Clear Estimated GFR Est GFR ( Amer) Glucose POC Glucose 113 H Hemoglobin A1c Lactate 2.1 Calcium Magnesium Total Bilirubin AST ALT Alkaline Phosphatase Troponin I < 0.01 < 0.01 C-Reactive Protein Total Protein Albumin Globulin Albumin/Globulin Ratio Procalcitonin Urine Color Urine Appearance Urine pH Ur Specific [place] Urine Protein Urine Glucose (UA) Urine Ketones Urine Blood Urine Nitrate Urine Bilirubin Urine Urobilinogen Ur Leukocyte Esterase Urine RBC Urine WBC Ur Squamous Epith Cells Urine Bacteria 03/17/25 03/17/25 12:56 11:36 WBC RBC Hgb Hct MCV MCH MCHC RDW Plt Count MPV Neut % (Auto) Lymph % (Auto) [place] % (Auto) Eos % (Auto) Baso % (Auto) Neut # (Auto) Lymph # (Auto) [place] # (Auto) Eos # (Auto) Baso # (Auto) Sodium Potassium Chloride Carbon Dioxide Anion Gap BUN Creatinine Estimated Creat Clear Estimated GFR Est GFR ( Amer) Glucose POC Glucose Hemoglobin A1c Lactate Calcium Magnesium Total Bilirubin AST ALT Alkaline Phosphatase Troponin I C-Reactive Protein 0.9 Total Protein Albumin Globulin Albumin/Globulin Ratio Procalcitonin 0.031 Urine Color Yellow Urine Appearance Clear Urine pH 6.0 Ur Specific [place] <= 1.005 Urine Protein 1+ A Urine Glucose (UA) 1+ Urine Ketones Negative Urine Blood Negative Urine Nitrate Negative Urine Bilirubin Negative Urine Urobilinogen 0.2 Ur Leukocyte Esterase Negative Urine RBC None Urine WBC None Ur Squamous Epith Cells None Urine Bacteria None DS: Diagnosis Discharge Diagnosis (1) Hypoglycemia: Status: Acute Code(s): E16.2 - Hypoglycemia, unspecified Meds Home Medications and Allergies Home Medications ?Medication ?Instructions ?Recorded ?Confirmed ?Type atorvastatin 80 mg tablet (Lipitor) 80 mg PO DAILY 03/17/25 History clopidogrel 75 mg tablet (Plavix) 75 mg PO DAILY 05/3003/17/25 History metformin 1,000 mg tablet 1,000 mg PO BID 05/30/2301/06 History sertraline 100 mg tablet 100 mg PO DAILY 05/30/2301/06 History metoprolol succinate 100 mg 100 mg PO DAILY 03/26/24 0 03/17/25 History tablet,extended release 24 hr cetirizine 10 mg tablet 10 mg PO DAILY 05/20/2401/06 History omeprazole 40 mg capsule,delayed 40 mg PO DAILY 03/17/25 History release famotidine 40 mg tablet 40 mg PO HS 08/31/24 5 History isosorbide mononitrate 60 mg 60 mg PO DAILY 30 days #3 0 tabs 09/02/24 03/17/25 Rx tablet,extended release 24 hr fluticasone propionate 50 2 spray intranasal DAILY 03/17/25 History mcg/actuation nasal spray,suspension bupropion HCl 150 mg 24 hr tablet, 150 mg PO DAILY 01/0603/17/25 History extended release losartan 100 mg tablet 100 mg PO DAILY 03/17/2501/06 History blood sugar diagnostic, disc #30 ea 03/18/25 Rx insulin glargine 100 30 unit (0.3 mL) SQ DAILY Di abetes 03/18/25 Rx unit-lixisenatide 33 mcg/mL #15 mL subcutaneous pen lancets #100 ea 03/18/25 Rx New Prescriptions to Start Prescriptions: blood sugar diagnostic, disc Natty Fischer insulin glargine-lixisenatide Natty Fischer Kourtney Allergies Allergy/AdvReac Type Severity Reaction Status Date / Time Penicillins Allergy Verified 03/12/25 11:07 Discharge Plan Disposition Patient Disposition: Home, Self-Care Condition: Fair Follow up Plan Follow up with: Campos Ahn MD [Primary Care Provider, Internal Medicine] - 03/25/25 3:30 pm Referral Note: F/U appointment after hospital stay Prescriptions/Medication Reconciliation: New insulin glargine-lixisenatide 100 unit-33 mcg/mL Insulin Pen 30 unit SQ DAILY Qty: 15 3RF (DME) blood sugar diagnostic, disc Strip See Rx Instructions .ROUTE Qty: 30 0RF Rx Instructions: [facility] .ROUTE Qty: 100 3RF Rx Instructions: As directed Continued metoprolol succinate 100 mg tablet extended release 24 hr 100 mg PO DAILY Patient Comments: TAKE 1 TABLET BY MOUTH ONCE DAILY omeprazole 40 mg capsule,delayed release(DR/EC) 40 mg PO DAILY Patient Comments: TAKE 1 CAPSULE BY MOUTH ONCE DAILY cetirizine 10 mg tablet 10 mg PO DAILY Patient Comments: TAKE 1 TABLET BY MOUTH ONCE DAILY famotidine 40 mg tablet 40 mg PO HS Patient Comments: TAKE 1 TABLET BY MOUTH ONCE DAILY AT BEDTIME isosorbide mononitrate 60 mg Tablet Extended Release 24 Hr 60 mg PO DAILY 30 Days Qty: 30 0RF fluticasone propionate 50 mcg/actuation spray,suspension 2 spray INTRANASAL DAILY atorvastatin [Lipitor] 80 mg Tablet 80 mg PO DAILY sertraline 100 mg Tablet 100 mg PO DAILY clopidogrel [Plavix] 75 mg Tablet 75 mg PO DAILY metformin 1,000 mg Tablet 1,000 mg PO BID losartan 100 mg tablet 100 mg PO DAILY bupropion HCl 150 mg tablet extended release 24 hr 150 mg PO DAILY Discontinued glimepiride 4 mg tablet 4 mg PO DAILY Patient Comments: TAKE 1 TABLET BY MOUTH ONCE DAILY Soliqua 100/33 100 unit-33 mcg/mL insulin pen 60 unit SQ DAILY Patient Comments: INJECT 60 UNITS SUBCUTANEOUSLY ONCE DAILY Problem Reconciliation Problems Reviewed?: Yes Patient Discharge Instructions ACTIVITY: Continue current activity DIET: advance to your usual diet Patient Instructions: DI for Hypoglycemia Print Language: Pakistani Providers Primary Care Provider: Campos Ahn Provider: Elder Monge Attending Provider: Elder Monge
[2025-03-19 07:32] LABS: POC Glucose,Bedside 216 (70-110)
[2025-03-19 07:32] LABS: POC Glucose,Bedside 200 (70-110)
[2025-03-19 07:32] LABS: POC Glucose,Bedside 233 (70-110)
--- NOTE | 2025-03-19 10:20 | SW/DCPLANNER ---
Spoke with patient on the phone. Patient stated that he is doing pretty good. Patient stated that he is aware of his upcoming appointment. Patient stated that he hasnt picked up his new medicine yet but plans on getting it today. Patient stated that he has no concerns or questions at this time. Macrina Silva
[2025-03-19 11:12] LABS: Insulin Level Total 34.2 uIU/mL (2.6-24.9)
[2025-03-19 12:11] LABS: C-Peptide 3.7 ng/mL (1.1-4.4)
== END 2025-03-18 13:32 | disposition home or self-care (01) ==
LOC: ER 14:55 → ICU 15:50
PROVIDERS: Admitting Provider Student in an Organized Health Care Education/Training Program; Emergency Provider Emergency Medicine; PCP Internal Medicine Adolescent Medicine; Visit Provider Student in an Organized Health Care Education/Training Program
DX: E11.649 Type 2 diabetes mellitus with hypoglycemia without coma (principal); Z79.4 Long term (current) use of insulin; Z79.84 Long term (current) use of oral hypoglycemic drugs; I45.10 Unspecified right bundle-branch block; E87.6 Hypokalemia; I25.10 Atherosclerotic heart disease of native coronary artery without angina pectoris; E78.5 Hyperlipidemia, unspecified; I10 Essential (primary) hypertension; I25.2 Old myocardial infarction; F41.9 Anxiety disorder, unspecified; F32.A Depression, unspecified; K21.9 Gastro-esophageal reflux disease without esophagitis; Z95.5 Presence of coronary angioplasty implant and graft; Z79.899 Other long term (current) drug therapy; Z79.02 Long term (current) use of antithrombotics/antiplatelets; Z88.0 Allergy status to penicillin
CPT/HCPCS: 96361; 96365; 96366; 96367; 96375 ×2; 36415; 71045; 80053; 81001; 82803; 82962; 83036; 83525; 83605; 83690; 83735; 84145; 84484; 84681; 85007; 85025; 85027; 85378; 86140; 87040; 93005; G0378; J1650; J3475; J3480; J7120

== ENCOUNTER 2025-04-09 10:19 | Outpatient (CLI) | payer OTHER, SELFPAY ==
--- OUTSIDE RECORDS SUMMARY | 2025-03-26 10:30 | XMS_ITS ---
Author Organization [facility] Address [address] [address] [place] [address] Care Team Providers Care Rug Dyer Name Role Phone Campos Ahn Primary Care Provider Campos Ahn Unavailable Unavailable Mitzi Mendoza Unavailable [phone] REASON FOR VISIT med ck Encounters Encounter Location Date Provider Diagnosis [facility] [address] [facility] [address] [place] [address] 03/26/2025 Mitzi Mendoza Plan Of Treatment Next Appt Details Provider Name:Campos Ahn, 04/20/2025 08:45:00 AM, [address] [facility] [address], [address], [place], [address], Progress Notes * Ralph DUNN SDOB: [birth year] (54 yo M)Acc No.[id number]:03/26/2025 Progress Notes Patient: Ralph LADD Provider: Aliya Mendoza APRN :1970 A ge:54 Y S ex:Male Date:03/26/2025 Address:[address] [place], [id number] Pcp:Campos Ahn Subjective: * Chief Complaints: * 1 . Med ck. * Medical History: Objective: * Vitals: Assessment: Plan: * Treatment: * * Electronic signature of Rubio Mendoza APRN on 04/09/2025 at 10:21 AM EDT Sign off status: Pending * Provider: Aliya Mendoza APRN Date: 0 03/26/2025 Generated for Ginger griffiths/Sirisha/Jam on: 0 04/09/2025 10:21 AM EDT
--- OUTSIDE RECORDS SUMMARY | 2025-03-26 11:45 | XMS_ITS ---
Author Organization [facility] Address [address] [place] [address] Care Team Providers Care Seed Service Advisor Name Role Phone Campos Ahn Primary Care Provider [phone] Campos Ahn Unavailable Unavailable Allergies Allergen (clinical drug ingredient) Drug/Non Drug Allergy documented on EMR Reaction Allergy Type Onset Date Status Penicillin hives Drug Allergy Active REASON FOR VISIT D/C 03/18/2025 [facility] and med check, high b/p Medications Medication SIG (Take, Route, Frequency, Duration) Notes Start Date End Date Status Metoprolol Succinate ER 100 MG 1 tab(s) orally once a day; Duration: 90 days 08/06/2023 Active metFORMIN HCl 1000 MG Take 1 tablet by mouth twice daily; Duration: 30 Active Pen Cumming NA INJECT SUBCUTANEOUS *Please revi ew and pick correct strength-formulati on from Open Learningan options. If intended option is not shown, [...] Status W/U Status Risk Notes Problem Hypoglycemia (992325095) Hypoglycemia (E16.2) Active confirmed Vital Signs Temperature 98.3 degrees Fahrenheit 03/26/20 25 Heart Rate 74 /min 03/26/2025 Blood pressure systolic 152 mm Hg 03/26/20 25 Blood pressure diastolic 110 mm Hg 025 Height 68 in 03/26/2025 Weight 210 lbs 03/26/2025 BMI 31.93 kg/m2 03/26/2025 Encounters Encounter Location Date Provider Diagnosis [address] [address] 03/26/2025 Campos Ahn Hypoglycemia E16.2 ; Hypertension, [...] Follow Up: prn, Reason: Provider Name:Campos Ahn, 04/20/2025 08:45:00 AM, [address], [place], [address], Progress Notes * Ralph DUNN SDOB: [birth year] (54 yo M)Acc No.[id number]:03/26/2025 HOSP F/U Patient: Ralph LADD Provider: Valarie Ahn MD :1970 A ge:54 Y S ex:Male Date:03/26/2025 Address:[address] [place] [address] [id number] Subjective: * Chief Complaints: * 1 . D/C 03/18/2025 H and med check. 2. High b/p. * [...] Procedure: H eart Cath , Covid 2019, [facility]- Heart Attack 2023, [facility] 03/17-03/2025. * Family History: F ather: [...] active: yes. Travel outside [place]: no. 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 * Medications: T aking Pen Cumming NA NA INJECT SUBCUTANEOUS , Notes to [...] Ahn MD Date: 0 03/26/2025 Generated for Printi ng/Faxing/eTransmitting on: 0 04/09/2025 10:22 AM EDT History and Physical Notes * [...]
--- OUTSIDE RECORDS SUMMARY | 2025-04-08 12:15 | XMS_ITS ---
Author Organization [facility] Address [address] [facility] [address] [place] [address] Care Team Providers Care Diesel Tractor Operator Name Role Phone Campos Ahn Primary Care Provider [phone] Campos Ahn Unavailable Unavailable Allergies Allergen (clinical [...] morning Orally Once a day Active Pen [place] NA INJECT SUBCUTANEOUS *Please revi ew and pick correct strength-formula tion from [employer] options. If intended option is not shown, [...] 04/08/2025 Encounters Encounter Location Date Provider Diagnosis [facility] [address] [facility] [address] [place] [address] 04/08/2025 Campos Ahn SOB (shortness of breath) R06.02 Assessments Encounter Date Diagnosis (ICD Code) Assessment Notes Treatment Notes Treatment Clinical Notes Section Notes 04/08/2025 SOB (shortness of breath) (ICD-10 - R06.02) Plan Of Treatment Medication Medication Name Sig Start Date Stop Date Notes Furosemide 20 MG 1 tablet Orally Once a day; Duration: 30 day(s) 04/08/2025 Next Appt Details Provider Name:Campos Ahn, 04/20/2025 08:45:00 AM, [address], [address], [place], [address], Progress Notes * Ralph DUNN SDOB: [birth year] (54 yo M)Acc No.[id number]:04/08/2025 Progress Notes Patient: Dion MARISELANICK Ralph Sheppard Provider: Valarie Ahn MD :1970 A ge:54 Y S ex:Male Date:04/08/2025 Address:[address] [place] [address] , [place], [id number] Subjective: * Chief Complaints: * 1 . Follow up. * Medical History: H eart Disease, HTN, Diabetes, Depression, Colon polyps on scope 2019, Heart Attack. * Surgical History: H ernia Repair 2018, Heart Cath x 10 2000,2006, Heart Cath w Stent Placement x 3 2023. * Hospitalization/Major Diagno stic Procedure: H eart Cath , Covid 2019, [facility]- Heart Attack 2023, [facility] 03/17-03/2025. * Family History: F ather: [...] active: yes. Travel outside [place]: no. 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 * Medications: T aking hydroCHLOROthiazide 25 MG Tablet 1 tablet in the morning Orally Once a day , Taking Pen [place] NA NA INJECT SUBCUTANEOUS , Notes to [...] BP: 148/94, Ht: 68, Wt: 211.4, BMI:32.14. Assessment: * Assessment: 1. S OB (shortness of breath) - R06.02 (Primary) Plan: * Treatment: * * Electronic signature of Papa Ahn MD FAAP on 04/09/2025 at 10:22 AM EDT Sign off status: Pending * Provider: Valarie Ahn MD Date: 04/08/2025 Generated for Ginger griffiths/Sirisha/Jam on: 04/09/2025 10:22 AM EDT
--- OUTSIDE RECORDS SUMMARY | 2025-04-09 10:22 | XMS_ITS | Patient Health Record ---
Author Organization 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 Role Phone Campos Ahn Primary Care Provider Campos Ahn Unavailable Unavailable Mitzi Mendoza Unavailable [phone] Migration, Provider Unavailable Unavailable Allergies Allergen (clinical drug ingredient) Drug/Non Drug Allergy documented on EMR Reaction Allergy Type Onset Date Status Penicillin hives Drug Allergy Active Results Component Value Reference Range Notes LIPID PANEL, STANDARD (7600) Reviewed date:06/30/2024 09:30:43 AM Interpretation: Performing Lab:[place], [facility] [id number] [facility] CenterTassNK[address] Amadou Gleason Notes/Report: FASTING: YES FASTING:YES NON-FASTING; NON-FASTING; NON-FASTING CHOLESTEROL, TOTAL 241 <200 mg/dL HDL CHOLESTEROL [...] factors. LDL-C is now calculated using the Myles-Maite calculation, which is a validated novel method providing better accuracy than the Friedewald equation in the estimation of LDL-C. Myles SS et al. ASHA. 2013;310(19): 7765-3108 (http://education.QuestDiag nostics.PreApps/faq/UGL510) CHOL/HDLC RATIO 5.2 <5.0 (calc) NON HDL CHOLESTEROL 195 <130 mg/dL (calc) For patients with diabetes plus 1 major ASCVD risk factor, treating to a non-HDL-C goal of <100 mg/dL (LDL-C of <70 mg/dL) is considered a therapeutic option. LIPID PANEL, STANDARD (7600) Reviewed date:11/27/2024 01:56:46 PM Interpretation: Performing Lab:[facility], [facility] [id number], [employer] BiotechKqbsCE[address] Amadou Gleason Notes/Report: NON-FASTING; NON-FASTING; NON-FASTING; NON-FASTING FASTING:YES FASTING: YES CHOLESTEROL, TOTAL 134 <200 mg/dL HDL CHOLESTEROL 34 > OR = 40 mg/dL TRIGLYCERIDES 143 <150 mg/dL LDL-CHOLESTEROL 76 Reference range: <100 Desirable range <100 mg/dL for primary prevention; <70 mg/dL for patients with CHD or diabetic patients with > or = 2 CHD risk factors. LDL-C is now calculated using the Myles-Arora calculation, which is a validated novel method providing better accuracy than the Friedewald equation in the estimation of LDL-C. Myles SS et al. ASHA. 2013;310(19): 5919-3487 (http://education.Chictini.com/faq/MNT090) CHOL/HDLC RATIO 3.9 <5.0 (calc) NON HDL CHOLESTEROL 100 <130 mg/dL (calc) For patients with diabetes plus 1 major ASCVD risk factor, treating to a non-HDL-C goal of <100 mg/dL (LDL-C of <70 mg/dL) is considered a therapeutic option. COMPREHENSIVE METABOLIC PANE L ([id number]) Reviewed date:11/27/2024 01:56:46 PM Interpretation: Performing Lab:[place], [facility] [address], [employer] BiotechHskjGX[address] Amadou Gleason Notes/Report: NON-FASTING; NON-FASTING; NON-FASTING; NON-FASTING FASTING:YES FASTING: YES GLUCOSE 175 65-99 mg/dL Fasting reference interval For someone without known diabetes, a glucose value >125 mg/dL indicates that they may have diabetes and this should be confirmed with a follow-up test. UREA NITROGEN (BUN) 15 7-25 mg/dL CREATININE 0.88 0.70-1.30 mg/dL EGFR 101 > OR = 60 mL/min/1.73m2 BUN/CREATININE RATIO SEE NOTE: - (calc) Not Reported: BUN and Creatinine are within reference range. SODIUM 142 135-146 mmol/L POTASSIUM 4.3 3.5-5.3 mmol/L CHLORIDE 107 98-110 mmol/L CARBON DIOXIDE 23 20-32 mmol/L CALCIUM 9.6 8.6-10.3 mg/dL PROTEIN, TOTAL 6.5 6.1-8.1 g/dL ALBUMIN 4.4 3.6-5.1 g/dL GLOBULIN 2.1 1.9-3.7 g/dL (calc) ALBUMIN/GLOBULIN RATIO 2.1 1.0-2.5 (calc) BILIRUBIN, TOTAL 0.5 0.2-1.2 mg/dL ALKALINE PHOSPHATASE 127 35-144 U/L AST 17 10-35 U/L ALT 27 9-46 U/L COMPREHENSIVE METABOLIC PANE L ([id number]) Reviewed date:06/30/2024 09:30:43 AM Interpretation: Performing Lab:[facility], [facility] [id number], [facility] CenterYnalRG[address] Amadou Gleason Notes/Report: NON-FASTING; NON-FASTING; NON-FASTING FASTING:YES FASTING: YES GLUCOSE 76 65-99 mg/dL Fasting reference interval UREA NITROGEN (BUN) 12 7-25 mg/dL CREATININE 0.82 0.70-1.30 mg/dL EGFR 104 > OR = 60 mL/min/1.73m2 BUN/CREATININE RATIO SEE NOTE: 04-05 (calc) Not Reported: BUN and Creatinine are [...] 15 10-35 U/L ALT 22 9-46 U/L CBC (INCLUDES DIFF/PLT) (639 9) Reviewed date:11/27/2024 01:56:46 PM Interpretation: Performing Lab:[place] [facility] [id number], PeerflixIcvbJB[address] Amadou Gleason Notes/Report: NON-FASTING; NON-FASTING; NON-FASTING; NON-FASTING FASTING:YES FASTING: YES WHITE BLOOD CELL COUNT 10.2 3.8-10.8 Thousand/ uL RED BLOOD CELL COUNT 6.22 4.20-5.80 Million/uL HEMOGLOBIN 16.8 13.2-17.1 g/dL HEMATOCRIT 51.4 38.5-50.0 % MCV 82.6 80.0-100.0 fL MCH 27.0 27.0-33.0 pg MCHC 32.7 32.0-36.0 g/dL For adults, a slight decrease in the calculated MCHC value (in the range of 30 to 32 g/dL) is most likely not clinically significant; however, it should be interpreted with caution in correlation with other red cell parameters and the patient's clinical condition. RDW 13.4 11.0-15.0 % PLATELET COUNT 246 140-400 Thousand/uL MPV 9.1 7.5-12.5 fL ABSOLUTE NEUTROPHILS 6559 3479-2327 cells/uL ABSOLUTE LYMPHOCYTES 2009 850-3900 cells/uL ABSOLUTE MONOCYTES 1000 200-950 cells/uL ABSOLUTE EOSINOPHILS 541 15-500 cells/uL ABSOLUTE BASOPHILS 92 0-200 cells/uL NEUTROPHILS 64.3 LYMPHOCYTES 19.7 MONOCYTES 9.8 EOSINOPHILS 5.3 BASOPHILS 0.9 HEMOGLOBIN A1c (496) Reviewed date:11/27/2024 01:56:46 PM Interpretation: Performing Lab:[place] [facility] [address]he[address], PeerflixGnlqEQ[address] Amadou Gleason Notes/Report: NON-FASTING; NON-FASTING; NON-FASTING; NON-FASTING FASTING:YES FASTING: YES HEMOGLOBIN A1c 8.7 <5.7 % of total Hgb For someone [...] A1c for diagnosis of diabetes for children. HEMOGLOBIN A1c (496) Reviewed date:06/30/2024 09:30:43 AM Interpretation: Performing Lab:[place], [facility] [id number] [facility], [facility] CenterPjgqWH[address] Amadou Gleason Notes/Report: NON-FASTING; NON-FASTING; NON-FASTING FASTING:YES [...] change in test platforms from the Diaz Coke Wheeler to the Malcom hope c503 may have shifted HbA1c results compared to historical results. Based on laboratory validation testing conducted at [facility], the Malcom platform relative to the Diaz platform had an average increase in HbA1c value of < or = 0.3%. This difference is within accepted variability established by the National Glycohemoglobin Standardization Program. Note that not all individuals will have had a shift in their results and direct comparisons between historical and current results for testing conducted on different platforms is not recommended. MODIFIED BARIUM SWALLOW Reviewed date:01/26/2025 02:27:28 PM Interpretation: Performing Lab: Notes/Report: Reason For Referral Reason Modified Barium Swal low Diagnosis 1 Esophageal dysphagia (R13.19) Referral Organization [facility] Referring Provider First Name Mitzi Referring Provider Last Name Kelly Referring Provider Speciality Family [facility] ctice Referred Organization [facility] Referred Address [address] [place],[address],[place] Referred Provider Specialty Diagnostic R adiology General Notes Harshal Naila 2024 11:24:21 AM > Referral Priority Routine Referral Appointment Date 12/15/2024 Reason GI -swallowing study normal, refer to GI for globus sensation Referral Organization [facility] Referring Provider First Name Mitzi Referring Provider Last Name Kelly Referring Provider Speciality [facility] ctice Referred Organization [facility] Referred Address [address] [place],[address],[place] Referred Provider Specialty Gastroentero logy General Notes Naila Caputo 2024 02:53:29 PM >Sent to Dr. Blackburn Referral Priority Routine Referral Appointment Date 03/10/2025 Medications Medication SIG (Take, Route, Frequency, Duration) Notes Start Date End Date Status Lantus SoloStar 100 UNIT/ML inject 30 units subcutaneously every night; Duration: 30 days on Hold Active Atorvastatin Calcium 80 MG Take 1 tablet by mouth once daily; Duration: 90 Active Soliqua 100-33 UNT-MCG/ML 60 units Subcutaneous daily; Duration: 30 days Active hydroCHLOROthiazide 25 MG 1 tablet in the morning Orally Once a day Active Cetirizine HCl 10 MG 1 tab(s) orally once a day; Duration: 90 days 05/05/2024 Active Isosorbide Mononitrate ER 60 MG 1 tab(s) orally once a day (in the morning); Duration: 90 days Active Furosemide 20 MG 1 tablet Orally Once a day; Duration: 30 day(s) 04/08/2025 Active Omeprazole 40 MG 1 cap(s) orally once a day; Duration: 90 days Active Sertraline HCl 100 MG 1 tab(s) orally once a day; Duration: 90 days Active Plavix 75 MG 1 tab(s) orally once a day; Duration: 90 days Active buPROPion HCl ER (XL) 150 MG 1 tab(s) orally every 24 hours; Duration: 90 days Active [place] NA INJECT SUBCUTANEOUS *Please revi ew and pick correct strength-formula tion from Medispan options. If intended option is not shown, discontinue and re-order from Quick Search* 06/04/2023 Active Losartan Potassium 100 MG Take 1 tablet by mouth once daily; Duration: 30 Active Flonase Allergy Relief 50 MCG/ACT 2 sprays in each nostril once a day; Duration: 30 days 06/25/2024 Active metFORMIN HCl 1000 MG Take 1 tablet by mouth twice daily; Duration: 30 Active Metoprolol Succinate ER 100 MG 1 tab(s) orally once a day; Duration: 90 days 08/06/2023 Active Immunizations Vaccine Route Administration Date Status [...] Problem Status W/U Status Risk Notes Problem Peripheral circulatory disorder associated with diabetes mellitus (157529500) Type 2 diabetes mellitus with other circulatory complications (E11.59) Active confirmed Problem Atherosclerotic heart disease of [place] coronary artery without angina pectoris (118187895032484) Atherosclerotic heart disease of [place] coronary artery without angina pectoris (I25.10) Active confirmed Problem Body mass index 30.00 to 34.99 (111843042998574) BMI 31.0-31.9,adult (Z68.31) Active confirmed Problem Hypoglycemia (600141373) Hypoglycemia (E16.2) Active confirmed Problem Primary hypertension (75418096) Primary hypertension (I10) Active confirmed Problem Hyperglycemia due to type 2 diabetes mellitus (221837914043552) Type 2 diabetes mellitus with hyperglycemia, without long-term current use of insulin (E11.65) Active confirmed Problem Seasonal allergic rhinitis (536975452) Seasonal allergic rhinitis, unspecified trigger (J30.2) Active confirmed Problem Major depression, single episode (85849217) Major depressive episode (F32.9) Active confirmed Problem Gastroesophageal reflux disease (922550199) Gastroesophageal reflux disease, unspecified whether esophagitis present (K21.9) Active confirmed Vital Signs Heart Rate 84 /min 04/08/2025 Temperature 97.7 degrees Fahrenheit 04/08/2025 Blood pressure diastolic 94 mm Hg 04/08/2025 Height 68 in 04/08/2025 Blood pressure systolic 148 mm Hg 04/08/2025 Weight 211.4 lbs 04/08/2025 BMI 32.14 kg/m2 04/08/2025 Encounters Encounter Location Date Provider Diagnosis [facility] [address] [facility] [place] [address] 01/17/2025 Provider Migration Primary hypertension I10 [facility] [address] [facility] [place] [address] 04/08/2025 Campos Ahn SOB (shortness of breath) R06.02 [facility] [address] [place] [address] 05/05/2024 Campos Ahn Type 2 diabetes tani itus with other circulatory complications E11.59 ; Atherosclerotic heart disease of [place] coronary artery without angina pectoris I25.10 ; Major depressive episode F32.9 ; Gastroesophageal reflux disease, unspecified whether esophagitis present K21.9 and Seasonal allergic rhinitis, unspecified trigger J30.2 [facility] [address] [place] [address] 06/25/2024 Campos Ahn Type 2 diabetes tani itus with other circulatory complications E11.59 ; Atherosclerotic heart disease of [place] coronary artery without angina pectoris I25.10 ; Hoarseness R49.0 and Immunization(s) administered Z23 [facility] [address] [place] [address] 09/08/2024 Campos Ahn Atherosclerotic hear t disease of [place] coronary artery without angina pectoris I25.10 ; Pain, gastric R10.9 ; Type 2 diabetes mellitus with other circulatory complications E11.59 and Hospital discharge follow-up Z09 [facility] [address] [place], [place] [address] 11/25/2024 Mitzi Mendoza Routine medical exam Z00.00 ; Type 2 diabetes mellitus with hyperglycemia, without long-term current use of insulin E11.65 ; Primary hypertension I10 ; Atherosclerotic heart disease of [place] coronary artery without angina pectoris I25.10 ; Gastroesophageal reflux disease, unspecified whether esophagitis present K21.9 ; Major depressive episode F32.9 ; Esophageal dysphagia R13.19 and BMI 31.0-31.9,adult Z68.31 [facility] [address] [facility] [address] [place] [address] 01/15/2025 Mitzi Kelly Type 2 diabetes tani itus with hyperglycemia, without long-term current use of insulin E11.65 and Primary hypertension I10 [facility] [address] [place] [address] 03/26/2025 Campos Besson Hypoglycemia E16.2 ; Hypertension, essential I10 ; Type 2 diabetes mellitus with other circulatory complications E11.59 and Hospital discharge follow-up Z09 [facility] [address] [place] [address] 05/08/2024 Campos Besson Primary hypertension I10 [facility] [address] [place] [address] 07/08/2024 Campos Besson [facility] [address] [place] [address] 07/10/2024 Campos Besson [facility] [address] [place] [address] 08/27/2024 Campos Besson Primary hypertension I10 [facility] [address] [place] [address] 09/02/2024 Campos Besson [facility] [address] [place] [address] 10/17/2024 Campos Besson Seasonal allergic rhinitis, unspecified trigger J30.2 [facility] [address] [place] [address] 10/29/2024 Campos Besson [facility] [address] [place] [address] 11/27/2024 Mitzi McNees [facility] [address] [place] [address] 03/10/2025 Campos Besson [facility] [address] [place] [address] 03/17/2025 Mitzi McNees [facility] [address] [place] [address] 03/18/2025 Campos Besson Assessments Encounter Date Diagnosis (ICD Code) Assessment Notes Treatment Notes Treatment Clinical Notes Section Notes 05/05/2024 Type 2 diabetes mellitus with other [...] documented this on his paperwork. 05/05/2024 Atherosclerotic heart disease of [place] coronary artery without angina pectoris (ICD-10 - [...] PLAN - repeat A1c today 06/25/2024 Atherosclerotic heart disease of [place] coronary artery without angina pectoris (ICD-10 - I25.10) - lipid panel ordered today 08/27/2024 Primary hypertension (ICD-10 - I10) 09/08/2024 Atherosclerotic heart disease of [place] coronary artery without angina pectoris (ICD-10 - I25.10) Patient discharged from hospital post 3 new stents. Continue medications prescribed in ED. Also started the patient on jardiance today to help control his diabetes and CAD. Will follow up with the patient in 6 weeks to see how he is doing. Patient has a follow up with cardiology scheduled today. 09/08/2024 Pain, gastric (ICD-10 - R10.9) Patient thinks he may have had a viral illness over the weekend. It has since resolved itself. 10/17/2024 Seasonal allergic rhinitis, unspecified trigger (ICD-10 - J30.2) 11/25/2024 Routine medical exam (ICD-10 - Z00.00) Routine labs drawn today Flu shot UTD Colonoscopy 201911/25/2024 Type 2 diabetes mellitus with hyperglycemia, without long-term current use of insulin (ICD-10 - E11.65) Good control on fasting FSBS. Discussed importance of diabetic diet, yearly eye exams, supportive footwear and monitoring feet daily for lesions 01/15/2025 Primary hypertension (ICD-10 - I10) Cough improved significantly. B/p above goal. Increase losartan as above. B/p check in 3 weeks 01/15/2025 Type 2 diabetes mellitus with hyperglycemia, without long-term current use of insulin (ICD-10 - E11.65) FSBS much improved with increased dose of glimeperide. Diabetic diet discussed 01/17/2025 Primary hypertension (ICD-10 - I10) 03/26/2025 Hypertension, essential (ICD-10 - I10) Saw cardiology earlier today for preop for EGD. They started HCTZ. Seems agreeable. Will follow at next visit 03/26/2025 Hypoglycemia (ICD-10 - E16.2) Hypoglycemia probably related to sulfonylureas. This has been stopped. Agree with this. However, does need to be back on his full dose of Soliqua and Lantus. I think Dexcom would be advantageous for him. We will prescribe this. We will see what the co-pay issues are with his insurance. Close follow-up 04/08/2025 SOB (shortness of breath) (ICD-10 - R06.02) 03/26/2025 Type 2 diabetes mellitus with other circulatory complications (ICD-10 - E11.59) See notes above, A1c in the hospital is not awful. Make changes above, start Dexcom 06/25/2024 Hoarseness (ICD-10 - R49.0) - patient [...] consider referral to ENT vs obtaining EGD 11/25/2024 Primary hypertension (ICD-10 - I10) Cough likely related to AURORA-I. Change to losartan. B/p check in 2 weeks 09/08/2024 Type 2 diabetes mellitus with other circulatory complications (ICD-10 - E11.59) Patient currently not at treatment goal for his diabetes. Adding jardiance to his medication regiment to help. Told patient to continue taking all his other medications and to follow up in 6 weeks to see how he is doing. 05/05/2024 Major depressive episode (ICD-10 - F32.9) Well-controlled therapy on sertraline. No changes in plan 05/05/2024 Gastroesophageal reflux disease, unspecified whether esophagitis present (ICD-10 - K21.9) Patient has GERD, probably related to GLP issues. Continue therapy with omeprazole, ramp-up dose 06/25/2024 Immunization(s) administered (ICD-10 - Z23) 09/08/2024 Hospital discharge follow-up (ICD-10 - Z09) Patient discharged from ED on 09/02 s/p NSTEMI with 3 new stents. Doing better, just fatigued. Follow up in 6 weeks. Please note I reviewed hospital H&P and discharge summary. Personally reconciled medications and corrected medication list on our end. 11/25/2024 Atherosclerotic heart disease of [place] coronary artery without angina pectoris (ICD-10 - I25.10) No acute angina. Maximize glucose, LDL and b/p control 03/26/2025 Hospital discharge follow-up (ICD-10 - Z09) Personally reviewed H&P and discharge summary as available from hospital discharge documentation. Reviewed pertinent labs and test done in the hospital. Personally reconciled medication. 11/25/2024 Gastroesophageal reflux disease, unspecified whether esophagitis present (ICD-10 - K21.9) Well controlled. 05/05/2024 Seasonal allergic rhinitis, unspecified trigger (ICD-10 - J30.2) 11/25/2024 Major depressive episode (ICD-10 - F32.9) Well controlled. 11/25/2024 Esophageal dysphagia (ICD-10 - R13.19) Will obtain MBS for evaluate for stricture and review as indicated 11/25/2024 BMI 31.0-31.9,adult (ICD-10 - Z68.31) Recommed diet, exercise, weight loss Plan Of Treatment Next Appt Details Provider Name:Campos Ahn, 04/20/2025 08:45:00 AM, [address], [place], [address], Insurance Providers Payer Name Payer Address Payer Phone Subscriber Number Group Number Insured Name Patient Relationship to Insured Coverage Start Date Coverage End Date [facility] [address] [place] [address] [id number] Ralph Dunn Self - patient is the insured Medical (General) History Medical History History ICD Code Heart Disease HTN Diabetes Depression Colon polyps on scope 2019 Heart Attack Surgical History Surgery Date(Month/Year) Hernia Repair 2019 Heart Cath x 10 2000,2006 Heart Cath w Stent Placement x 3 2023 Hospitalization History Reason Date(Month/Year[facility] 03/17-03/2025 [facility]- Heart Attack 2023 Covid 2020 Heart Cath
--- NOTE | 2025-04-09 10:30 | MR_ITS ---
APPROVED REPORT Inner Layer Scrubber Tender: CLINICAL INDICATION HCM evaluation TECHNIQUE Image Acquisition: Cardiac magnetic resonance (CMR) was performed on Siemens Espree MRI 1.5T scanner. Software platform sequences were performed using the Siemens Lookmash MR B19 platform. A set of three-plane, low-resolution, large stqlb-fo-fecr localizers were initially acquired. Then axial, coronal, sagittal TrueFISP, as well as axial HASTE images, were obtained. These were followed by gated TrueFISP breathold cinematic sequences obtained in the short axis with 8 mm slices and 2 mm gaps, 2-chamber (vertical long axis), 3-chamber, 4-chamber (horizontal long axis). A bolus of contrast was injected intravenously with first-pass sequences obtained in the short axis and four-chamber planes. After approximately 10 minutes, a TI real estate operations manager sequence was performed to determine the optimal TI time. Using the optimized TI time, delayed contrast enhancement segmented inversion???recovery TurboFLASH sequences were obtained in the short axis, 2-chamber, 3-chamber, and 4-chamber projections. 2D-velocity phase mapping was performed. Functional parameters were calculated by offline analysis on an independent workstation ([employer] Imaging Platform, Jiff). Contrast: ProHance??? (Gadoteridol) FINDINGS MORPHOLOGY AND FUNCTION Left ventricle: The left ventricle is normal in size. The indexed left ventricular end-diastolic volume (LVEDVi) is 57 ml/m2 (reference range 57-105 ml/m2 in males, 56-96 ml/m2 in females). Normal left ventricular systolic function is present. There is asymmetric increase in LV wall thickness up to 15.2 mm in the septal LV wall. There are no regional wall motion abnormalities noted. LVEF is calculated at 52.4% (reference range 57-77%). Right ventricle: The right ventricle is normal in size. The indexed right ventricular end-diastolic volume (RVEDVi) is 61 ml/m2 (reference range 61-121 ml/m2 in males, 48-112 ml/m2 in females). Normal right ventricular systolic function is present. RVEF is calculated at 55.5% (reference range 52-72% in males, 51-71% in females). Atria: The left atrium is normal in size. The maximum indexed left atrial volume is 29 ml/m2 (reference range 26-52 ml/m2 in males, 27-53 ml/m2 in females). The right atrium is normal in size. The maximum indexed right atrial volume is 20 ml/m2 (reference range 18-90 ml/m2). Aorta: The diameter of the aortic annulus is normal, measuring 29 mm (coronal view reference range 21-30 mm in males, 19-27 mm in females). The diameter of the aortic sinus is normal, measuring 35 mm (coronal view reference range 25-42 mm in males, 24-36 mm in females). The diameter of the sinotubular junction is normal, measuring 30 mm (coronal view reference range 18-32 mm in males, 18-28 mm in females). The diameters of the ascending and descending thoracic aorta are normal. Main pulmonary artery: The main pulmonary artery diameter is normal. Pericardium: The pericardial thickness is normal. The pericardial thickness measures 1.2 mm (normal < 4.0 mm). There is no pericardial effusion. VALVES The valvular morphologies in the visualized sequences appear normal. There is no significant valvular stenosis or regurgitation of the mitral, aortic, tricuspid, or pulmonic valve noted visually. Systolic anterior motion of the mitral valve is not visualized. Ratio of pulmonary to systemic flow, Qp:Qs ratio = 1.1 (normal < or = 1.2, hemodynamically significant shunt > 1.5), demonstrating no evidence of hemodynamically significant shunt. TISSUE CHARACTERIZATION Resting Perfusion: Normal myocardial blood flow at rest. No evidence of resting hypoperfusion. Myocardial Fibrosis and/or edema: Patchy late gadolinium enhancement (LGE) is present in the septal, anteroseptal, inferior, and lateral L LV posey. The total LGE burden to myocardial thickness is approximately 5%. OTHER No other significant findings are noted. However, this exam is focused on the cardiac structure and function. IMPRESSION Normal LV size with normal LV systolic function. LVEDVi= 57 ml/m2 and LVEF= 48.8%. Asymmetric increase in LV wall thickness up to 15.2 mm in the septal LV wall. No evidence of systolic anterior motion (XIOMARA) or LVOT obstruction at rest. Normal RV size with normal RV systolic function. RVEDVi= 61 ml/m2 and RVEF= 55.5%. No atrial enlargement. Patchy late gadolinium enhancement (LGE) is present in the septal, anteroseptal, inferior, and lateral L LV posey. The total LGE burden to myocardial thickness is approximately 5%. Perfusion analysis demonstrates normal blood flow at rest with no evidence of resting hypoperfusion. Ratio of pulmonary to systemic flow, Qp:Qs ratio = 1.1 (normal < or = 1.2, hemodynamically significant shunt > 1.5), demonstrating no evidence of hemodynamically significant shunt. This CMR demonstrates asymmetric increase in LV wall thickness, meeting HCM criteria of > 15 mm, along with patchy LGE in the LV wall (up to 5% LGE of the total myocardial thickness), consistent with the same diagnosis. 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 There is no evidence of XIOMARA or LVOT obstruction at rest. Further evaluation, including event monitoring, exercise echo stress testing, and genetic testing may be considered. First generation family member screening is also recommended. COMPARISON None CRITICAL RESULT None COMMUNICATION The above findings were relayed to the patient at the time of the routine outpatient cardiology follow-up visit, prior to dictation of this report. The findings of this cardiac MR were reviewed, reported, and signed by Kalia Silver MD (Correction Officer Reformatory). Conclusion Electronically signed by : Eugenie Silver MD 05/07/2025 15:34:53
[2025-04-09] MEDS: 0.9 % SODIUM CHLORIDE 50 ML VIAL IV (11:15)
[2025-04-09] MEDS: SODIUM CHLORIDE 0.9% 10ML SYR (RAD ONLY) 10 ML IV (11:16)
[2025-04-09] MEDS: GADOTERIDOL INJ 20ML SYRINGE 20 ML IV (11:16)
== END 2025-04-09 23:59 | disposition home or self-care (01) ==
LOC: RAD 10:20
PROVIDERS: PCP Internal Medicine Adolescent Medicine; Visit Provider Nurse Practitioner
DX: Z01.810 Encounter for preprocedural cardiovascular examination (principal); R93.1 Abnormal findings on diagnostic imaging of heart and coronary circulation; I21.4 Non-ST elevation (NSTEMI) myocardial infarction; I10 Essential (primary) hypertension
CPT/HCPCS: 75561; A9576

== ENCOUNTER → 2025-04-13 07:10 | Day surgery (SDC) | payer OTHER, SELFPAY ==
[2025-04-08 10:01] VITALS: BMI 32.8
[2025-04-13 07:30] VITALS: BP 169/86; PULSE 73; RESP 16; TEMP 36.4; O2SAT 95
--- NOTE | 2025-04-13 07:33 | EXP.ANES.CKL ---
[facility] Disclaimer: The information contained in this section may have been updated after the patient was seen, as this information can be updated by other users. Medical History Frequent urination History of COVID-19 Anxiety History of gastroesophageal reflux (GERD) Hypokalemia Choking Globus sensation Chronic cough Hoarseness Angina pectoris Bowel wall thickening Atelectasis of both lungs Non-ST elevation IN (NSTEMI) Diabetes mellitus, type 2 History of left heart catheterization (LHC) Hyperlipidemia Hypertension Chest pain Acute hyperglycemia Surgical History S/P hernia surgery History of heart artery stent Family History Other Diabetes Heart disease Social History Smoking Status: Never smoker alcohol intake: never substance use type: denies use current occupational status: employed Travel in the last 8 weeks?: None Have you lived/traveled outside US in past 30 days?: No Contact w/someone who lives/traveled outside US past 30 days?: No Exposure to someone with infectious disease in past 14 days?: No Do you have a fever (greater than 100.4 F or 38 C)?: No Have you tested positive for COVID-19?: No Exposed to someone with COVID-19 in past 14 days?: No Do you have a sore throat?: No Do you have a cough?: No Do you have any weakness?: No Do you have any diarrhea?: No Are you experiencing any unusual bleeding?: No Do you have any muscle aches/pain?: No Do you have any abdominal pain?: No Are you experiencing loss of taste or smell?: No [facility] Anesthesia Checklist Patient Identification Patient Identification: Arm Band Structural Data Admitted From: Home Planned Operative Procedure/s: EGD Consent for Planned Operative Procedure(s) Verified: Yes Verified Documents: Surgical Consent and History and Physical NPO Status Verified Time NPO: 00:00 Additional verifications Anesthesia Reactions: No Hx Blood Transfusions: No Blood Transfusion Reaction: No Airway Assessment Mallampati Score:: Class II C-Spine Mobility Assessed: Yes TMJ Mobility Assessed: Yes Dentition: Good Dentition Neurological Assessment Level of Consciousness: Awake, Alert and Appropriate Anesthesia Plan Anesthesia Risk discussed: Yes Anesthesia Plan: Verified ASA Class: III Anesthesia Type: MAC
[2025-04-13] MEDS: LACTATED RINGERS 1000ML 1,000 ML 50 ML IV (07:37)
[2025-04-13 07:41] LABS: POC Glucose,Bedside 134 (70-110)
--- NOTE | 2025-04-13 07:50 | EXP.HP ---
History of Present Illness *Admission Date: 04/13/25 *Reason for visit:: Globus sensation, choking, hoarseness and chronic cough *History of present illness: Mr. Dunn is a 54-year-old gentleman with hoarseness, chronic cough, globus sensation and choking who is here for diagnostic EGD. The examination is deemed medically necessary for diagnostic EGD. The patient has been seen, interviewed and examined prior to the procedure by both myself and the anesthesia provider. [facility] Disclaimer: The information contained in this section may have been updated after the patient was seen, as this information can be updated by other users. Medical History (Updated 04/13/25 @ 07:51 by Dustin Blackburn II, MD) Choking Globus sensation Chronic cough Hoarseness Frequent urination History of COVID-19 Anxiety History of gastroesophageal reflux (GERD) Hypokalemia Angina pectoris Bowel wall thickening Atelectasis of both lungs Non-ST elevation [place] (NSTEMI) Diabetes mellitus, type 2 History of left heart catheterization (LHC) Hyperlipidemia Hypertension Chest pain Acute hyperglycemia Surgical History S/P hernia surgery History of heart artery stent Family History Other Diabetes Heart disease Social History Smoking Status: Never smoker alcohol intake: never substance use type: denies use current occupational status: employed Travel in the last 8 weeks?: None caffeine: No Have you lived/traveled outside US in past 30 days?: No Contact w/someone who lives/traveled outside US past 30 days?: No Exposure to someone with infectious disease in past 14 days?: No Do you have a fever (greater than 100.4 F or 38 C)?: No Have you tested positive for COVID-19?: No Exposed to someone with COVID-19 in past 14 days?: No Do you have a sore throat?: No Do you have a cough?: No Do you have any weakness?: No Do you have any diarrhea?: No Are you experiencing any unusual bleeding?: No Do you have any muscle aches/pain?: No Do you have any abdominal pain?: No Are you experiencing loss of taste or smell?: No Other Medical History Have you received the Flu Vaccine for this season: No Have you received the Pneumonia Vaccine: No Review of Systems Review of Systems Review of systems (narrative): Negative *Cardiovascular Comments: Negative *Gastrointestinal Comments: Negative *Genitourinary Comments: Negative *Musculoskeletal Comments: Negative *Neurologic Comments: Negative Meds Home Medications and Allergies Home Medications ?Medication ?Instructions ?Recorded ?Confirmed ?Type atorvastatin 80 mg tablet (Lipitor) 80 mg PO DAILY 05/30/23 04/08/25 History clopidogrel 75 mg tablet (Plavix) 75 mg PO DAILY 05/30/23 04/08/25 History metformin 1,000 mg tablet 1,000 mg PO BID 05/30/23 04/08/25 History sertraline 100 mg tablet 100 mg PO DAILY 05/30/23 04/08/25 History metoprolol succinate 100 mg 100 mg PO DAILY 03/26/24 04/08/25 History tablet,extended release 24 hr cetirizine 10 mg tablet 10 mg PO DAILY 05/20/24 04/08/25 History omeprazole 40 mg capsule,delayed 40 mg PO DAILY 05/20/24 04/08/25 History release famotidine 40 mg tablet 40 mg PO HS 08/31/24 04/08/25 History isosorbide mononitrate 60 mg 60 mg PO DAILY 30 days #30 tabs 09/02/24 04/08/25 Rx tablet,extended release 24 hr fluticasone propionate 50 2 spray intranasal DAILY 03/12/25 04/08/25 History mcg/actuation nasal spray,suspension bupropion HCl 150 mg 24 hr tablet, 150 mg PO DAILY 03/17/25 04/08/25 History extended release losartan 100 mg tablet 100 mg PO DAILY 03/17/25 04/08/25 History blood sugar diagnostic, disc #30 ea 03/18/25 03/26/25 Rx lancets #100 ea 03/18/25 03/26/25 Rx hydrochlorothiazide 12.5 mg capsule 12.5 mg PO DAILY HTN #30 caps 03/26/25 04/08/25 Rx insulin glargine 100 60 unit SQ DAILY Diabetes 04/08/25 04/08/25 History unit-lixisenatide 33 mcg/mL subcutaneous pen insulin glargine 100 unit/mL (3 10 unit SQ HS 04/08/25 04/08/25 History mL) subcutaneous pen (Lantus Solostar U-100 Insulin) New Prescriptions to Start Prescriptions: Allergies Allergy/AdvReac Type Severity Reaction Status Date / Time Penicillins Allergy Rash Verified 04/08/25 09:49 Exam Data for Last 24 hours Vital signs and Labs for Last 24 Hours: Temp Pulse Resp BP Pulse Ox O2 Del Method 97.5 F L 73 16 169/86 H 95 Room Air 04/13/25 07:30 04/13/25 07:30 04/13/25 07:30 04/13/25 07:30 04/13/25 07:30 04/13/25 07:30 Laboratory Results - last 24 hr 04/13/25 07:32: POC Glucose 134 H *Routine HEENT Exam Head: Present normocephalic Eye: Present EOMI and PERRL ENT: Present mucous membranes moist *Routine Neck Exam Neck: Present supple *Routine Respiratory Exam Respiratory: Present CTA bilaterally *Routine Cardiovascular Exam Cardiovascular: Present RRR *Routine Abdominal Exam Abdominal: Present soft and normoactive bowel sounds; Absent tenderness *Routine Rectal Exam Rectal:: deferred *Routine Genitalia Exam Genitalia:: deferred *Routine Extremities Exam Extremities: Absent cyanosis, clubbing or edema *Routine Skin Exam Skin: Present warm; Absent rash *Routine Neurological Exam Neurological: Present alert and oriented X3 Assessment and Plan *Assessment and plan (1) Chronic cough: Status: Acute Category: Medical Code(s): R05.3 - Chronic cough (2) Choking: Status: Acute Category: Medical Code(s): T17.308A - Unspecified foreign body in larynx causing other injury, initial encounter (3) Globus sensation: Status: Acute Category: Medical Code(s): R09.A2 - Foreign body sensation, throat (4) Hoarseness: Status: Acute Category: Medical Code(s): R49.0 - Dysphonia Plan A/P: 1. Globus sensation, choking, hoarseness and chronic cough is the preprocedural diagnosis. The patient will be anesthetized/sedated using MAC sedation. The patient has been seen and examined. Cardiac and lung assessment prior to the examination is stable. Proceed with planned diagnostic EGD.
--- NOTE | 2025-04-13 07:52 | P.PCN_ITS ---
[facility] Procedure Note Date: 04/13/25 Time: 08:05 Procedure Note:: Upper Endoscopy Procedure Report: Esophagogastroduodenoscopy with cold biopsies and TTS balloon dilation Endoscopost: Dustin Blackburn II, MD Referring Physician: Campos Ahn M.D. Date of Procedure: April 13, 2025 Equipment: Olympus GIF 190 standard upper endoscope Sedation: MAC sedation Indications: Mr. Dunn is a 54-year-old gentleman with frequent choking, chronic cough, hoarseness and globus sensation. He has a persistent scratchy throat. The patient also reports moderate bloating and some belching. His barium swallow was unremarkable. He did start a new diabetic medication (Soliqua). He does report mucus accumulation and frequent clearance of the throat. He has some early satiety. He reports no abdominal pain or nausea. He reports some loose bowel movements. The patient did have a colonoscopy in December 2023 (Martín Almeida M.D.) and had 2 or 3 hyperplastic polyps removed. Procedure: Prior to the procedure, a history and physical exam was performed, and patient's medications and allergies were reviewed. The risks, benefits and alternatives of the sedation and procedure were discussed with the patient. All questions were answered and informed consent was obtained. The patient was brought to the procedure room. Patient identification and proposed procedure were verified by the physician and the nurse. The patient was placed in a left lateral decubitus position and the scope was passed under direct vision. Throughout the procedure, the patient's blood pressure, pulse, and oxygen saturations were monitored continuously. The upper GI endoscopy was accomplished without difficulty. The patient tolerated the procedure well. Findings: The scope was passed directly into the upper esophagus and advanced to the fourth portion of duodenum and proximal jejunum. A cold biopsy was taken from the proximal jejunum for the disaccharidase assay. The proximal jejunum, post bulbar duodenum, ampulla and duodenal bulb were normal with normal mucosa and conniventes. The scope was withdrawn through a normal duodenal bulb and pylorus into the stomach. There was moderate linear reactive gastropathy of the antrum. The body and fundus of the stomach were normal. Upon retroflexion there was no hiatal hernia. Cold biopsies were taken from the antrum. The scope was then withdrawn into the esophagus. There was no evidence of reflux esophagitis or Winn's. There was a serrated Z-line and a cold biopsy was taken at the GE junction. There were tertiary contractions and evidence of moderate esophageal dysmotility. The entire esophagus was dilated to 60 Greenlandic/20 mm with a TTS hydrostatic balloon. There was some resistance at the cricopharyngeus. The remainder of the esophageal mucosa was normal. Impression: 1. Cricopharyngeal spasm status post dilation to 20 mm 2. Linear reactive gastropathy of antrum Plan: I will follow-up the biopsies and discuss the findings with the patient and family.
[2025-04-13 08:09] VITALS: BP 150/100; PULSE 87; RESP 16; TEMP 36.3; O2SAT 90
[2025-04-13 08:19] VITALS: BP 146/88; PULSE 80; RESP 16; TEMP 36.3; O2SAT 92
[2025-04-13 08:29] VITALS: BP 142/88; PULSE 79; RESP 18; TEMP 36.3; O2SAT 93
[2025-04-13 08:39] VITALS: BP 143/96; PULSE 79; RESP 18; TEMP 36.3; O2SAT 96
[2025-04-16 15:26] LABS: Disclaimer Notes (.); Interpretation Notes (.); Lactase 37.1 (>/= 14.0); Maltase 263.8 (>/= 110.0); Palatinase 18.96 (>/= 8.5); Reference Notes (.); Sucrase 69.35 (>/= 25.0)
== END | disposition home or self-care (01) ==
PROVIDERS: PCP Internal Medicine Adolescent Medicine; Visit Provider Internal Medicine Gastroenterology
PROC: 0DJ08ZZ Inspection of Upper Intestinal Tract, Via Natural or Artificial Opening Endoscopic (ICD-10-PCS; CPT 43239; principal; 2025-04-13 08:30)
DX: K22.4 Dyskinesia of esophagus (principal); K31.89 Other diseases of stomach and duodenum; I10 Essential (primary) hypertension; E78.5 Hyperlipidemia, unspecified; E11.65 Type 2 diabetes mellitus with hyperglycemia; Z79.84 Long term (current) use of oral hypoglycemic drugs; Z79.02 Long term (current) use of antithrombotics/antiplatelets; Z79.4 Long term (current) use of insulin; Z88.0 Allergy status to penicillin; Z86.0102 Personal history of hyperplastic colon polyps
CPT/HCPCS: 43239; 43249; 82657; 82962; C1726; J2003; J2704; J7120

== ENCOUNTER 2025-04-27 10:55 | Outpatient (CLI) | payer OTHER, SELFPAY ==
--- OUTSIDE RECORDS SUMMARY | 2025-04-20 04:45 | XMS_ITS ---
Author Organization [facility] Address [address] [facility] [address] [place] [address] Care Team Providers Care Locomotive Operator Name Role Phone Campos Ahn Primary Care Provider Campos Ahn Unavailable Unavailable REASON FOR VISIT f/u Encounters Encounter Location Date Provider Diagnosis [facility] [address] [place], [place] [address] 04/20/2025 Campos Ahn Plan Of Treatment Next Appt Details Provider Name:Campos Ahn, 05/07/2025 11:30:00 AM, [address] [place] [address], [phone], Progress Notes * Ralph DUNN SDOB: [birth year] (54 yo M)Acc No.[id number]:04/20/2025 Progress Notes Patient: Ralph LADD Provider: Valarie Ahn MD :1970 A ge:54 Y S ex:Male Date:04/20/2025 Address:[address] [facility] [id number] Subjective: * Chief Complaints: * 1 . F/u. * Medical History: Objective: * Vitals: Assessment: Plan: * Treatment: * * Electronic signature of Papa Ahn MD FAAP on 04/27/2025 at 10:57 AM EDT Sign off status: Pending * Provider: Valarie Ahn MD Date: 0 04/20/2025 Generated for Ginger griffiths/Sirisha/Jam on: 0 04/27/2025 10:57 AM BRENT
[2025-04-27 12:04] LABS: Total Protein,Serum 6.4 g/dl (6.3-8.2)
[2025-04-28 17:11] LABS: Albumin 3.6 g/dL (2.9-4.4); Alpha-1-Globulin 0.2 g/dL (0.0-0.4); Alpha-2-Globulin 0.8 g/dL (0.4-1.0); Gamma Globulin 0.6 g/dL (0.4-1.8)
[2025-04-29 15:11] LABS: Immunoglobulin A, Qn 141 mg/dL (90-386); Immunoglobulin G, Qn 736 mg/dL (603-1613); Immunoglobulin M, Qn 14 mg/dL (20-172)
[2025-05-01 10:20] LABS: PDF SCANNED IMAGE
== END 2025-04-27 23:59 | disposition home or self-care (01) ==
LOC: LAB 10:56
PROVIDERS: PCP Internal Medicine Adolescent Medicine; Visit Provider Nurse Practitioner
DX: E78.2 Mixed hyperlipidemia (principal); E11.9 Type 2 diabetes mellitus without complications; I10 Essential (primary) hypertension; I21.4 Non-ST elevation (NSTEMI) myocardial infarction; I42.2 Other hypertrophic cardiomyopathy
CPT/HCPCS: 36415; 82784; 83521; 84155; 84165; 86334; 93270

== ENCOUNTER 2025-04-29 11:03 | Outpatient (CLI) | payer OTHER, SELFPAY ==
--- OUTSIDE RECORDS SUMMARY | 2025-03-26 11:45 | XMS_ITS ---
Author Organization [facility] Address [address] [place] [address] Care Team Providers Care Supervisor [employer] Name Role Phone Campos Ahn Primary Care Provider [phone] Campos Ahn Unavailable Unavailable Allergies Allergen (clinical [...] mouth twice daily; Duration: 30 Active Pen Williamson NA INJECT SUBCUTANEOUS *Please revi ew and pick correct strength-formulati on from SEWORKSan options. If intended option is not shown, [...] Status W/U Status Risk Notes Problem Hypoglycemia (724527888) Hypoglycemia (E16.2) Active confirmed Vital Signs Temperature 98.3 degrees Fahrenheit 03/26/20 25 Heart Rate 74 /min 03/26/2025 Blood pressure systolic 152 mm Hg 03/26/20 25 Blood pressure diastolic 110 mm Hg 025 Height 68 in 03/26/2025 Weight 210 lbs 03/26/2025 BMI 31.93 kg/m2 03/26/2025 Encounters Encounter Location Date Provider Diagnosis [address] [address] 03/26/2025 Campos Ahn Hypoglycemia E16.2 ; Hypertension, [...] Reason: Provider Name:Campos Ahn, 05/07/2025 11:30:00 AM, [address] [place] [address], [phone], Progress Notes * Ralph DUNN SDOB: [birth year] (54 yo M)Acc No.[id number]:03/26/2025 HOSP F/U Patient: Ralph LADD Provider: Valarie Ahn MD :1970 A ge:54 Y S ex:Male Date:03/26/2025 Address:[facility] [address], [id number] Subjective: * Chief Complaints: * 1 . [...] active: yes. Travel outside [place]: no. 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 * Medications: T aking Pen Williamson NA NA INJECT SUBCUTANEOUS , Notes to [...] 03/26/2025 Generated for Ginger griffiths/Sirisha/eTransmitting on: 0 04/29/2025 11:11 AM EDT History and Physical Notes * [...]
--- OUTSIDE RECORDS SUMMARY | 2025-04-08 12:15 | XMS_ITS ---
Author Organization [facility] Address [address] [facility] [address] [place] [address] Care Team Providers Care Senior Ui Ux Designer Name Role Phone Campos Ahn Primary Care Provider [phone] Campos Ahn Unavailable Unavailable Allergies Allergen (clinical drug ingredient) Drug/Non Drug Allergy documented on EMR Reaction Allergy Type Onset Date Status Penicillin hives Drug Allergy Active REASON FOR VISIT follow up Medications Medication SIG (Take, Route, Frequency, Duration) Notes Start Date End Date Status Isosorbide Mononitrate ER 60 MG 1 tab(s) orally once a day (in the morning); Duration: 90 days Active Furosemide 20 MG 1 tablet Orally Once a day; Duration: 30 day(s) 04/08/2025 Active Losartan Potassium 100 MG Take 1 tablet by mouth once daily; Duration: 30 Active metFORMIN HCl 1000 MG Take 1 tablet by mouth twice daily; Duration: 30 Active Lantus SoloStar 100 UNIT/ML inject 30 units subcutaneously every night; Duration: 30 days on Hold Active Atorvastatin Calcium 80 MG Take 1 tablet by mouth once daily; Duration: 90 Active Soliqua 100-33 UNT-MCG/ML 60 units Subcutaneous daily; Duration: 30 days Active Plavix 75 MG 1 tab(s) orally once a day; Duration: 90 days Active buPROPion HCl ER (XL) 150 MG 1 tab(s) orally every 24 hours; Duration: 90 days Active Cetirizine HCl 10 MG 1 tab(s) orally once a day; Duration: 90 days 05/05/2024 Active Omeprazole 40 MG 1 cap(s) orally once a day; Duration: 90 days Active Sertraline HCl 100 MG 1 tab(s) orally once a day; Duration: 90 days Active Flonase Allergy Relief 50 MCG/ACT 2 sprays in each nostril once a day; Duration: 30 days 06/25/2024 Active Metoprolol Succinate ER 100 MG 1 tab(s) orally once a day; Duration: 90 days 08/06/2023 Active hydroCHLOROthiazide 25 MG 1 tablet in the morning Orally Once a day Active [place] NA INJECT SUBCUTANEOUS *Please revi ew and pick correct strength-formula tion from [email or web address] options. If intended option is not shown, discontinue and re-order from Quick Search* 06/04/2023 Active Social History Tobacco Use: Social History Observation Description Date Details (start date - stop date) Never Smoker NA - NA Smoking: Question Answer Notes Are you a: nonsmoker Vital Signs Temperature 97.7 degrees Fahrenheit 04/08/20 Heart Rate 84 /min 04/08/2025 Blood pressure systolic 148 mm Hg 04/08/20 Blood pressure diastolic 94 mm Hg 025 Height 68 in 04/08/2025 Weight 211.4 lbs 04/08/2025 BMI 32.14 kg/m2 04/08/2025 Encounters Encounter Location Date Provider Diagnosis [facility] [address] [place] [address] 04/08/2025 Campos Ahn SOB (shortness of breath) R06.02 and Type 2 diabetes mellitus with hyperglycemia, without long-term current use of insulin E11.65 Assessments Encounter Date Diagnosis (ICD Code) Assessment Notes Treatment Notes Treatment Clinical Notes Section Notes 04/08/2025 SOB (shortness of breath) (ICD-10 - R06.02) Seems to be mildly fluid overloaded. Start daily furosemide. 04/08/2025 Type 2 diabetes mellitus with hyperglycemia, without long-term current use of insulin (ICD-10 - E11.65) Patient's glucose levels are improved and that he is not having hypoglycemia. However he still has poor control. Think he would benefit from a continuous glucose monitor, does meet criteria with twice daily insulin injections and undergoing a hospitalization for hypoglycemia. Will try to get this authorized. Plan Of Treatment Medication Medication Name Sig Start Date Stop Date Notes Furosemide 20 MG 1 tablet Orally Once a day; Duration: 30 day(s) 04/08/2025 Treatment Notes Assessment Notes SOB (shortness of breath) Seems to be mildly fluid overloaded. Start daily furosemide. Type 2 diabetes mellitus wit h hyperglycemia, without long-term current use of insulin Patient's glucose levels are improved and that he is not having hypoglycemia. However he still has poor control. Think he would benefit from a continuous glucose monitor, does meet criteria with twice daily insulin injections and undergoing a hospitalization for hypoglycemia. Will try to get this authorized. Next Appt Details Follow Up: prn, Reason: Provider Name:Campos Ahn, 05/07/2025 11:30:00 AM, [address] [address], [place], [address], Progress Notes * Ralph DUNN SDOB: [birth year] (54 yo M)Acc No.[id number]:04/08/2025 Progress Notes Patient: Ralph LADD Provider: Valarie Ahn MD :1970 A ge:54 Y S ex:Male Date:04/08/2025 Address:[address] [place] [address] , [place], [id number] Subjective: * Chief Complaints: * 1 . Follow up. * HPI: g en: Patient here to follow-up his glucose levels after discharge a couple weeks ago. Please see his posthospital visit notes. Glucose levels are improved, is checking his sugars multiple times a day on a fingerstick monitor. No hypoglycemia. Still running quite a bit high. Does have some sort of air, was told he might have a bit of heart failure, is following with cardiology. * Medical History: H eart Disease, HTN, Diabetes, Depression, Colon polyps on scope 2019, Heart Attack. * Surgical History: H ernia Repair 2018, Heart Cath x 10 2000,2006, Heart Cath w Stent Placement x 3 2023. * Hospitalization/Major Diagno stic Procedure: H eart Cath , Covid 2019, H- Heart Attack 2023, [facility] 03/17-03/2025. * Family History: F ather: , Alzheimer's dementia, diagnosed with Diabetes. M other: alive, bipolar , fibromyalgia, diagnosed with Hypertension, Mental Illness. P aternal Grand Father: , diagnosed with [...] active: yes. Travel outside [place]: no. 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 * Medications: T aking hydroCHLOROthiazide 25 MG Tablet 1 tablet in the morning Orally Once a day , Taking Pen [place] NA NA INJECT SUBCUTANEOUS , Notes to Pharmacist: *Please review and pick correct strength-formulation from [employer] options. If intended option is not shown, discontinue and re-order from Quick Search*, Taking Flonase Allergy Relief 50 MCG/ACT Suspension 2 sprays in each nostril once a day , Taking Metoprolol Succinate ER 100 MG Tablet Extended Release 24 Hour 1 tab(s) orally once a day , Taking Cetirizine HCl 10 MG Tablet 1 tab(s) orally once a day , Taking Omeprazole 40 MG Capsule Delayed Release 1 cap(s) orally once a day , Taking Sertraline HCl 100 MG Tablet 1 tab(s) orally once a day , Taking Plavix 75 MG Tablet 1 tab(s) [...] 1 tablet by mouth twice daily , Taking Isosorbide Mononitrate ER 60 MG Tablet Extended Release 24 Hour 1 tab(s) orally once a day (in the morning) , Discontinued Glimepiride 4 MG Tablet 1 tab(s) orally once a day , Medication List reviewed and reconciled with the patient * Allergies: P enicillin: hives - Allergy. Objective: * Vitals: N urse: KJ, Pain: 0, Temp: 97.7, RR: 18, HR: 84, BP: 148/94, Ht: 68, Wt: 211.4, BMI:32.14. * Examination: G eneral Examination: R honchi in both lower lung abdi. Heart rate regular. No ankle edema. Weight and blood pressure normal. Assessment: * Assessment: 1. T ype 2 diabetes mellitus with hyperglycemia, without long-term current use of insulin - E11.65 (Primary) 2 . S OB (shortness of breath) - R06.02 Plan: * Treatment: 2. S OB (shortness of breath) Start Furosemide Tablet, 20 MG, 1 tablet, Orally, Once a day, 30 day(s), 30. Notes: Seems to be mildly fluid overloaded. Start daily furosemide. * Follow Up: p rn * * Sign off status: Completed true * Provider: Valarie Ahn MD Date: 0 04/08/2025 Generated for Ginger griffiths/Sirisha/eTransmitting on: 0 04/29/2025 11:11 AM EDT History and Physical Notes * HPI (History of Present Illness) Category Sub-Category Detail Notes Category Not es gen Patient here to follow-up his glucose levels after discharge a couple weeks ago. Please see his posthospital visit notes. Glucose levels are improved, is checking his sugars multiple times a day on a fingerstick monitor. No hypoglycemia. Still running quite a bit high. Does have some sort of air, was told he might have a bit of heart failure, is following with cardiology. Examination Category Sub-Category Detail Notes Category Not es General Examination Rhonchi in both lower lung abdi. Heart rate regular. No ankle edema. Weight and blood pressure normal.
--- OUTSIDE RECORDS SUMMARY | 2025-04-20 04:45 | XMS_ITS ---
Author Organization [facility] Address [address] [facility] [address] [place] [address] Care Team Providers Care Dispensary Attendant Name Role Phone Campos Ahn Primary Care Provider Campos Ahn Unavailable Unavailable REASON FOR VISIT f/u Encounters Encounter Location Date Provider Diagnosis [facility] [address] [place], [place] [address] 04/20/2025 Campos Ahn Plan Of Treatment Next Appt Details Provider Name:Campos Ahn, 05/07/2025 11:30:00 AM, [address] [place] [address], [phone], Progress Notes * Ralph DUNN SDOB: [birth year] (54 yo M)Acc No.[id number]:04/20/2025 Progress Notes Patient: Ralph LADD Provider: Valarie Ahn MD :1970 A ge:54 Y S ex:Male Date:04/20/2025 Address:[address] [facility] [id number] Subjective: * Chief Complaints: * 1 . F/u. * Medical History: Objective: * Vitals: Assessment: Plan: * Treatment: * * Electronic signature of Papa Ahn MD FAAP on 04/29/2025 at 11:10 AM EDT Sign off status: Pending * Provider: Valarie Ahn MD Date: 0 04/20/2025 Generated for Ginger griffiths/Sirisha/Jam on: 0 04/29/2025 11:10 AM EDT
--- OUTSIDE RECORDS SUMMARY | 2025-04-29 11:12 | XMS_ITS | Patient Health Record ---
Author Organization [facility] Address [address] [place] [address] Care Team Providers Care Eyelet Cutter Name Role Phone Campos Ahn Primary Care Provider Campos Ahn Unavailable Unavailable Mitzi Mendoza Unavailable [phone] Migration, Provider Unavailable Unavailable Allergies Allergen (clinical drug ingredient) Drug/Non Drug Allergy documented on EMR Reaction Allergy Type Onset Date Status Penicillin hives Drug Allergy Active Results Component Value Reference Range Notes MODIFIED BARIUM SWALLOW Reviewed date:01/26/2025 02:27:28 PM Interpretation: Performing Lab: Notes/Report: HEMOGLOBIN A1c (496) Reviewed date:11/27/2024 01:56:46 PM Interpretation: Performing Lab:[facility], [facility] Bszq7664 [facility], [facility] ClinicUiugPD[address] Amadou Gleason Notes/Report: NON-FASTING; NON-FASTING; NON-FASTING; NON-FASTING [...] A1c for diagnosis of diabetes for children. CBC (INCLUDES DIFF/PLT) (639 9) Reviewed date:11/27/2024 01:56:46 PM Interpretation: Performing Lab:[facility] Scla9249 [facility], [facility] ClinicJhwsTT[address] Amadou Gleason Notes/Report: NON-FASTING; NON-FASTING; NON-FASTING; NON-FASTING [...] MPV 9.1 7.5-12.5 fL ABSOLUTE NEUTROPHILS 6559 5704-8796 cells/uL ABSOLUTE LYMPHOCYTES 2009 850-3900 cells/uL ABSOLUTE MONOCYTES 1000 200-950 cells/uL ABSOLUTE EOSINOPHILS 541 15-500 cells/uL ABSOLUTE BASOPHILS 92 0-200 cells/uL NEUTROPHILS 64.3 LYMPHOCYTES 19.7 MONOCYTES 9.8 EOSINOPHILS 5.3 BASOPHILS 0.9 COMPREHENSIVE METABOLIC PANE (79651) Reviewed date:11/27/2024 01:56:46 PM Interpretation: Performing Lab:[facility] Pefx1391 [facility]el [facility], [facility] HospitalRemtER[address] Amadou Gleason Notes/Report: NON-FASTING; NON-FASTING; NON-FASTING; NON-FASTING FASTING:YES FASTING: YES GLUCOSE 175 65-99 mg/dL follow-up test. Fasting reference interval For someone without known diabetes, a glucose value >125 mg/dL indicates that they may have diabetes and this should be confirmed with a UREA NITROGEN (BUN) 15 7-25 mg/dL CREATININE [...] 17 10-35 U/L ALT 27 9-46 U/L LIPID PANEL, STANDARD (7600) Reviewed date:11/27/2024 01:56:46 PM Interpretation: Performing Lab:[facility] Khcj2892 [facility] Amadou Gleason Notes/Report: NON-FASTING; NON-FASTING; NON-FASTING; NON-FASTING [...] equation in the estimation of LDL-C. Myles JESUS et al. ASHA. 2013;310(19): 4189-9411 (http://education.Vobile.com/faq/RYH376) CHOL/HDLC RATIO 3.9 <5.0 (calc) NON HDL CHOLESTEROL 100 <130 mg/dL (calc) For patients with diabetes plus 1 major ASCVD risk factor, treating to a non-HDL-C goal of <100 mg/dL (LDL-C of <70 mg/dL) is considered a therapeutic option. LIPID PANEL, STANDARD (7600) Reviewed date:06/30/2024 09:30:43 AM Interpretation: Performing Lab:[facility] Poga2918 [facility], [facility] ClinicCwegAC[address] Amadou Gleason Notes/Report: NON-FASTING; NON-FASTING; NON-FASTING FASTING:YES [...] equation in the estimation of LDL-C. Myles JESUS et al. ASHA. 2013;310(19): 3368-7744 (http://education.Vobile.Ocular Therapeutix/faq/NUK180) CHOL/HDLC RATIO 5.2 <5.0 (calc) NON HDL CHOLESTEROL 195 <130 mg/dL (calc) For patients with diabetes plus 1 major ASCVD risk factor, treating to a non-HDL-C goal of <100 mg/dL (LDL-C of <70 mg/dL) is considered a therapeutic option. COMPREHENSIVE METABOLIC STANTON Godwin (85260) Reviewed date:06/30/2024 09:30:43 AM Interpretation: Performing Lab:[facility] Jira9269 [facility]oteMat[facility], [facility] ClinicGrwvOX[address] Amadou Gleason Notes/Report: NON-FASTING; NON-FASTING; NON-FASTING FASTING:YES [...] 15 10-35 U/L ALT 22 9-46 U/L HEMOGLOBIN A1c (496) Reviewed date:06/30/2024 09:30:43 AM Interpretation: Performing Lab:[place], [facility] Zamarripae1355 [facility], H[facility]in CampoverdeXxueMC[address] Amadou Gleason Notes/Report: NON-FASTING; NON-FASTING; NON-FASTING FASTING:YES [...] change in test platforms from the Diaz Assistant Track Coach to the Malcom hope c503 may have shifted HbA1c results compared to historical results. Based on laboratory validation testing conducted at [employer], the Malcom platform relative to the Diaz [...] is not recommended. Reason For Referral Reason Modified Barium Swal low Diagnosis 1 Esophageal dysphagia (R13.19) Referral Organization [facility] DANNY Referring Provider First Name Mitzi Referring Provider Last Name Kelly Referring Provider Speciality Family Pra ctice Referred Organization [facility] Referred Address [address] [place],[address],[place] Referred Provider Specialty Diagnostic R adiology General Notes Harshal Naila 2024 11:24:21 AM > Referral Priority Routine Referral Appointment Date 12/15/2024 Reason GI -swallowing study normal, refer to GI for globus sensation Referral Organization [facility] Referring Provider First Name Mitzi Referring Provider Last Name Kelly Referring Provider Speciality [facility] Referred Organization [facility] Referred Address [address] [place],[address],[place] Referred Provider Specialty Gastroentero logy General Notes Harshal Naila 2024 02:53:29 PM >Sent to Dr. Blackburn Referral Priority Routine Referral Appointment Date 03/10/2025 Medications Medication SIG (Take, Route, Frequency, Duration) Notes Start Date End Date Status EQ Allergy Relief (Cetirizine) 10 MG Take 1 tablet by mouth once daily; Duration: 90 Active Lantus SoloStar 100 UNIT/ML inject 30 units subcutaneously every night; Duration: 30 days on Hold Active Atorvastatin Calcium 80 MG Take 1 tablet by mouth once daily; Duration: 90 Active Omeprazole 40 MG Take 1 capsule by mouth once daily; Duration: 90 Active hydroCHLOROthiazide 25 MG 1 tablet in the morning Orally Once a day Active Isosorbide Mononitrate ER 60 MG 1 tab(s) orally once a day (in the morning); Duration: 90 days Active Furosemide 20 MG 1 tablet Orally Once a day; Duration: 30 day(s) 04/08/2025 Active Sertraline HCl 100 MG 1 tab(s) orally once a day; Duration: 90 days Active Plavix 75 MG 1 tab(s) orally once a day; Duration: 90 days Active buPROPion HCl ER (XL) 150 MG 1 tab(s) orally every 24 hours; Duration: 90 days Active Soliqua 100-33 UNT-MCG/ML 60 units Subcutaneous daily; Duration: 30 days Active Losartan Potassium 100 MG Take 1 tablet by mouth once daily; Duration: 30 Active Pen [place] NA INJECT SUBCUTANEOUS *Please revi ew and pick correct strength-formula tion from [email or web address] options. If intended option is not shown, [...] Vaccine Route Administration Date Status Comme nts SHINGRIX IM Intramuscular 10/17/2023 Administered SHINGRIX IM Intramuscular 01/30/2024 Administered FLUZONE 6MO - OLDER IM Intramuscular 08/06/2023 Administer ed Flublok IM Intramuscular 06/25/2024 Administered Social History Tobacco Use: Social History Observation Description Date Details (start date - stop date) Never Smoker NA - NA Smoking: Question Answer Notes Are you a: nonsmoker Problems Problem Type SNOMED Code ICD Code Onset Dates Problem Status W/U Status Risk Notes Problem Peripheral circulatory disorder associated with diabetes mellitus (202320176) Type 2 diabetes mellitus with other circulatory complications (E11.59) Active confirmed Problem Atherosclerotic heart disease of [place] coronary artery without angina pectoris (705387277888638) Atherosclerotic heart disease of [place] coronary artery without angina pectoris (I25.10) Active confirmed Problem Body mass index 30.00 to 34.99 ([id number]) BMI 31.0-31.9,adult (Z68.31) Active confirmed Problem Hypoglycemia (390925677) Hypoglycemia (E16.2) Active confirmed Problem Primary hypertension (05047908) Primary hypertension (I10) Active confirmed Problem Hyperglycemia due to type 2 diabetes mellitus (903455459548902) Type 2 diabetes mellitus with hyperglycemia, without long-term current use of insulin (E11.65) Active confirmed Problem Seasonal allergic rhinitis (431530090) Seasonal allergic rhinitis, unspecified trigger (J30.2) Active confirmed Problem Major depression, single episode (99575673) Major depressive episode (F32.9) Active confirmed Problem Gastroesophageal reflux disease (826335656) Gastroesophageal reflux disease, unspecified whether esophagitis present (K21.9) Active confirmed Vital Signs Heart Rate 84 /min 04/08/2025 Temperature 97.7 degrees Fahrenheit 04/08/2025 Blood pressure diastolic 94 mm Hg 04/08/2025 Height 68 in 04/08/2025 Blood pressure systolic 148 mm Hg 04/08/2025 Weight 211.4 lbs 04/08/2025 BMI 32.14 kg/m2 04/08/2025 Encounters Encounter Location Date Provider Diagnosis [facility] [address] [facility] [address] [place] [address] 01/17/2025 Provider Migration Primary hypertension I10 [facility] [address] [facility] [place] [address] 05/05/2024 Campos Ahn Type 2 diabetes tani itus with other circulatory complications E11.59 ; Atherosclerotic heart disease of [place] coronary artery without angina pectoris I25.10 ; Major depressive episode F32.9 ; Gastroesophageal reflux disease, unspecified whether esophagitis present K21.9 and Seasonal allergic rhinitis, unspecified trigger J30.2 [facility] [address] [facility] [place] [address] 06/25/2024 Campos Ahn Type 2 diabetes tani itus with other circulatory complications E11.59 ; Atherosclerotic heart disease of [place] coronary artery without angina pectoris I25.10 ; Hoarseness R49.0 and Immunization(s) administered Z23 [facility] [address] [facility] [place], [place] [address] 09/08/2024 Campos Ahn Atherosclerotic hear t disease of [place] coronary artery without angina pectoris I25.10 ; Pain, gastric R10.9 ; Type 2 diabetes mellitus with other circulatory complications E11.59 and Hospital discharge follow-up Z09 [facility] [address] [facility] [place], [place] [address] 11/25/2024 Mitzi Mendoza Routine medical exam Z00.00 ; Type 2 diabetes mellitus with hyperglycemia, without long-term current use of insulin E11.65 ; Primary hypertension I10 ; Atherosclerotic heart disease of [place] coronary artery without angina pectoris I25.10 ; Gastroesophageal reflux disease, unspecified whether esophagitis present K21.9 ; Major depressive episode F32.9 ; Esophageal dysphagia R13.19 and BMI 31.0-31.9,adult Z68.31 [facility] [address] [facility] [address] [place] [address] 01/15/2025 Mitzi Mendoza Type 2 diabetes tani itus with hyperglycemia, without long-term current use of insulin E11.65 and Primary hypertension I10 [facility] [address] [place] [address] 03/26/2025 Campos Besson Hypoglycemia E16.2 ; Hypertension, essential I10 ; Type 2 diabetes mellitus with other circulatory complications E11.59 and Hospital discharge follow-up Z09 [facility] [address] [place] [address] 04/08/2025 Campos Besson SOB (shortness of breath) R06.02 and Type 2 diabetes mellitus with hyperglycemia, without long-term current use of insulin E11.65 [facility] [address] [place] [address] 05/08/2024 Campos Besson Primary hypertension I10 [facility] [address] [place] [address] 07/08/2024 Campos Besson [facility] [address] [place] [address] 07/10/2024 Campos Besson [facility] [address] [place] [address] 08/27/2024 Campos Besson Primary hypertension I10 [facility] [address] [place] [address] 09/02/2024 Campos Besson [facility] [address] [place] [address] 10/17/2024 Campos Besson Seasonal allergic rhinitis, unspecified trigger J30.2 [facility] [address] [place] [address] 10/29/2024 Campos Besson [facility] [address] [place] [address] 11/27/2024 Mitzi McNees [facility] [address] [place] [address] 03/10/2025 Campos Besson [facility] [address] [place] [address] 03/17/2025 Mitzi McNees [facility] [address] [place] [address] 03/18/2025 Campos Ahn [facility] [address] [place] [address] 04/13/2025 Campos Ahn Assessments Encounter Date Diagnosis (ICD Code) Assessment [...] his paperwork. 05/05/2024 Atherosclerotic heart disease of [place] coronary artery without angina pectoris (ICD-10 - [...] A1c today 06/25/2024 Atherosclerotic heart disease of [place] coronary artery without angina pectoris (ICD-10 - I25.10) - lipid panel ordered today 08/27/2024 Primary hypertension (ICD-10 - I10) 09/08/2024 Atherosclerotic heart disease of [place] coronary artery without angina pectoris (ICD-10 - [...] labs drawn today Flu shot UTD Colonoscopy 2020 11/25/2024 Type 2 diabetes mellitus with hyperglycemia, without [...] are with his insurance. Close follow-up 04/08/2025 Type 2 diabetes mellitus with hyperglycemia, without long-term current use of insulin (ICD-10 - E11.65) Patient's glucose levels are improved and that he is not having hypoglycemia. However he still has poor control. Think he would benefit from a continuous glucose monitor, does meet criteria with twice daily insulin injections and undergoing a hospitalization for hypoglycemia. Will try to get this authorized. 04/08/2025 SOB (shortness of breath) (ICD-10 - R06.02) Seems to be mildly fluid overloaded. Start daily furosemide. 03/26/2025 Type 2 diabetes mellitus with other [...] our end. 11/25/2024 Atherosclerotic heart disease of [place] coronary artery without angina pectoris (ICD-10 - [...] Next Appt Details Provider Name:Campos Velazquezmilton Ahn, 05/07/2025 11:30:00 AM, [address], [address], Insurance Providers Payer Name Payer Address Payer Phone Subscriber Number Group Number Insured Name Patient Relationship to Insured Coverage Start Date Coverage End Date [facility] [address] [place] [address] [id number] Ralph Dunn Self - patient is the insured Medical (General) History Medical History History ICD Code Heart Disease HTN Diabetes Depression Colon polyps on scope 2019 Heart Attack Surgical History Surgery Date(Month/Year) Hernia Repair 2019 Heart Cath x 10 2000,2006 Heart Cath w Stent Placement x 3 2023 Hospitalization History Reason Date(Month/Year) [facility] 03/17-03/2025 [facility]- Heart Attack 2023 Covid 2020 Heart Cath
[2025-05-01 15:11] LABS: Albumin, U 28.0 % (.); Alpha-1-Globulin, U 9.4 % (.); Alpha-2-Globulin, U 24.1 % (.); Beta Globulin, U 14.8 % (.); Gamma Globulin, U 23.7 % (.); Prot,24hr calculated 473 mg/24 hr (30-150)
== END 2025-04-29 23:59 | disposition home or self-care (01) ==
LOC: LAB 11:04
PROVIDERS: PCP Internal Medicine Adolescent Medicine; Visit Provider Nurse Practitioner
DX: E11.9 Type 2 diabetes mellitus without complications (principal); E78.2 Mixed hyperlipidemia; I10 Essential (primary) hypertension; I21.4 Non-ST elevation (NSTEMI) myocardial infarction; I25.10 Atherosclerotic heart disease of native coronary artery without angina pectoris; I42.2 Other hypertrophic cardiomyopathy
CPT/HCPCS: 84156; 84166; 86335

== ENCOUNTER 2025-05-06 10:53 | Outpatient (CLI) | payer OTHER, SELFPAY ==
--- OUTSIDE RECORDS SUMMARY | 2025-03-26 11:45 | XMS_ITS ---
Author Organization [facility] Address [address] [place] [address] Care Team Providers Care Limb Driver Name Role Phone Campos Ahn Primary Care Provider Campos Ahn Unavailable Unavailable Allergies Allergen (clinical drug ingredient) Drug/Non Drug Allergy documented on EMR Reaction Allergy Type Onset Date Status Penicillin hives Drug Allergy Active REASON FOR VISIT D/C 03/18/2025 [facility] and med check, high b/p Medications Medication SIG (Take, Route, Frequency, Duration) Notes Start Date End Date Status Metoprolol Succinate ER 100 MG 1 tab(s) orally once a day; Duration: 90 days 08/06/2023 Active metFORMIN HCl 1000 MG Take 1 tablet by mouth twice daily; Duration: 30 Active Pen Chester NA INJECT SUBCUTANEOUS *Please revi ew and pick correct strength-formulati on from Wurld[employer]chan options. If intended option is not shown, discontinue and re-order from Quick Search* 06/04/2023 Active Flonase Allergy Relief 50 MCG/ACT 2 sprays in each nostril once a day; Duration: 30 days 06/25/2024 Active Losartan Potassium 100 MG Take 1 tablet by mouth once daily; Duration: 30 Active Soliqua 100-33 UNT-MCG/ML 60 units Subcutaneous daily; Duration: 30 days Active buPROPion HCl ER (XL) 150 MG 1 tab(s) orally every 24 hours; Duration: 90 days Active Atorvastatin Calcium 80 MG Take 1 tablet by mouth once daily; Duration: 90 Active Lantus SoloStar 100 UNIT/ML inject 30 units subcutaneously every night; Duration: 30 days on Hold Active Cetirizine HCl 10 MG 1 tab(s) orally once a day; Duration: 90 days 05/05/2024 Active Omeprazole 40 MG 1 cap(s) orally once a day; Duration: 90 days Active Plavix 75 MG 1 tab(s) orally once a day; Duration: 90 days Active Sertraline HCl 100 MG 1 tab(s) orally once a day; Duration: 90 days Active Glimepiride 4 MG 1 tab(s) orally once a day; Duration: 30 days on hold 11/27/2024 Active Isosorbide Mononitrate ER 60 MG 1 tab(s) orally once a day (in the morning); Duration: 90 days Active Social History Tobacco Use: Social History Observation Description Date Details (start date - stop date) Never Smoker NA - NA Smoking: Question Answer Notes Are you a: nonsmoker Problems Problem Type SNOMED Code ICD Code Onset Dates Problem Status W/U Status Risk Notes Problem Hypoglycemia (038500657) Hypoglycemia (E16.2) Active confirmed Vital Signs Temperature 98.3 degrees Fahrenheit 03/26/20 25 Blood pressure systolic 152 mm Hg 03/26/20 25 Blood pressure diastolic 110 mm Hg 025 Heart Rate 74 /min 03/26/2025 Height 68 in 03/26/2025 Weight 210 lbs 03/26/2025 BMI 31.93 kg/m2 03/26/2025 Encounters Encounter Location Date Provider Diagnosis [address] [address] 03/26/2025 Campos Ahn Hypoglycemia E16.2 ; Hypertension, essential I10 ; Type 2 diabetes mellitus with other circulatory complications E11.59 and Hospital discharge follow-up Z09 Assessments Encounter Date Diagnosis (ICD Code) Assessment Notes Treatment Notes Treatment Clinical Notes Section Notes 03/26/2025 Hypoglycemia (ICD-10 - E16.2) Hypoglycemia probably related to sulfonylureas. This has been stopped. Agree with this. However, does need to be back on his full dose of Soliqua and Lantus. I think Dexcom would be advantageous for him. We will prescribe this. We will see what the co-pay issues are with his insurance. Close follow-up 03/26/2025 Hypertension, essential (ICD-10 - I10) Saw cardiology earlier today for preop for EGD. They started HCTZ. Seems agreeable. Will follow at next visit 03/26/2025 Type 2 diabetes mellitus with other circulatory complications (ICD-10 - E11.59) See notes above, A1c in the hospital is not awful. Make changes above, start Dexcom 03/26/2025 Hospital discharge follow-up (ICD-10 - Z09) Personally reviewed H&P and discharge summary as available from hospital discharge documentation. Reviewed pertinent labs and test done in the hospital. Personally reconciled medication. Plan Of Treatment Treatment Notes Assessment Notes Hypoglycemia Hypoglycemia probably related to sulfonylureas. This has been stopped. Agree with this. However, does need to be back on his full dose of Soliqua and Lantus. I think Dexcom would be advantageous for him. We will prescribe this. We will see what the co-pay issues are with his insurance. Close follow-up Hypertension, essential Saw cardiology earlier today for preop for EGD. They started HCTZ. Seems agreeable. Will follow at next visit Type 2 diabetes mellitus wit h other circulatory complications See notes above, A1c in the hospital is not awful. Make changes above, start Dexcom Hospital discharge follow-up Personally reviewed H&P and discharge summary as available from hospital discharge documentation. Reviewed pertinent labs and test done in the hospital. Personally reconciled medication. Next Appt Details Follow Up: prn, Reason: Provider Name:Campos Ahn, 05/07/2025 11:30:00 AM, [address] [place] [address], [id number], Progress Notes * Ralph DUNN SDOB: [birth year] (54 yo M)Acc No.[id number]:03/26/2025 HOSP F/U Patient: Ralph LADD Provider: Valarie Ahn MD :1970 A ge:54 Y S ex:Male Date:03/26/2025 Address:[facility] [address], [id number] Subjective: * Chief Complaints: * 1 . D/C 03/18/2025 [facility] and med check. 2. High b/p. * HPI: I ntrim History: Transition of care visit from hospital D ate of admission to hospital: 0 03/17/2025, D ate of receipt of hospital admission report: 0 03/18/2025,?Date of discharge from hospital: 0 03/18/2025, D ate of receipt of hospital discharge summary: 0 03/19/2025, D ischarge medications reviewed and reconciled from hospital: M edications left unchanged. Here for follow-up of his recent hospitalization. Admitted overnight and discharged 8 days ago. I reviewed his discharge summary. Basically, became hypoglycemic. Is on glimepiride and long-acting Lantus along with combination GLP/insulin in the mornings. We have used sulfonylureas because of his young age and cost issues with co-pays with more advanced oral medications. He is now off glimepiride and was instructed to reduce his Lantus and hold it. He is now becomes extremely hyperglycemic. * Medical History: H eart Disease, HTN, Diabetes, Depression, Colon polyps on scope 2019, Heart Attack. * Surgical History: H ernia Repair 2018, Heart Cath x 10 2000,2006, Heart Cath w Stent Placement x 3 2023. * Hospitalization/Major Diagno stic Procedure: H eart Cath , Covid 2019, [facility]- Heart Attack 2023, [facility] 03/17-03/2025. * Family History: F ather: , Alzheimer's dementia, diagnosed with Diabetes. M other: alive, bipolar , fibromyalgia, diagnosed with Mental Illness, Hypertension. P aternal Grand Father: , diagnosed with Mental Illness. P aternal Grand Mother: , diagnosed with Cancer. M aternal Grand Father: , diagnosed with Stroke. M aternal Grand Mother: , diagnosed with Cancer. P aternal uncle: , diagnosed with Cancer. P aternal aunt: .?Maternal uncle: alive, 2 uncles . M aternal aunt: alive, 1 aunt . S iblings: alive. C hildren: alive. 1 brother(s) , 1 sister(s) - healthy. 2 daughter(s) - healthy. . Grandmothers- pancreatic and ovarian cancers Pancreatic and colon cancer history. * Social History: S moking A re you a: n onsmoker. R ecreational drug use: no. Exercise: no. Home smoke detector use: no. Caffeine: yes, frequency: coffee, tea and soft drinks. Living Will: No. Alcohol: no. Sexually active: yes. Travel outside [place]: no. 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 * Medications: T aking Pen Chester NA NA INJECT SUBCUTANEOUS , Notes to Pharmacist: *Please review and pick correct strength-formulation from Medispan options. If intended option is not shown, discontinue and re-order from Quick Search*, Taking Flonase Allergy Relief 50 MCG/ACT Suspension 2 sprays in each nostril once a day , Taking Metoprolol Succinate ER 100 MG Tablet Extended Release 24 Hour 1 tab(s) orally once a day , Taking Isosorbide Mononitrate ER 60 MG Tablet Extended Release 24 Hour 1 tab(s) orally once a day (in the morning) , Taking Cetirizine HCl 10 MG Tablet 1 tab(s) orally once a day , Taking Omeprazole 40 MG Capsule Delayed Release 1 cap(s) orally once a day , Taking Sertraline HCl 100 MG Tablet 1 tab(s) orally once a day , Taking Glimepiride 4 MG Tablet 1 tab(s) orally once a day , Notes to Pharmacist: on hold, Taking Plavix 75 MG Tablet 1 tab(s) orally once a day , Taking Lantus SoloStar 100 UNIT/ML Solution Pen-injector inject 30 units subcutaneously every night , Notes to Pharmacist: on Hold, Taking Atorvastatin Calcium 80 MG Tablet Take 1 tablet by mouth once daily , Taking Soliqua 100-33 UNT-MCG/ML Solution Pen-injector 60 units Subcutaneous daily , Taking buPROPion HCl ER (XL) 150 MG Tablet Extended Release 24 Hour 1 tab(s) orally every 24 hours , Taking Losartan Potassium 100 MG Tablet Take 1 tablet by mouth once daily , Taking metFORMIN HCl 1000 MG Tablet Take 1 tablet by mouth twice daily , Discontinued Farxiga 10 MG Tablet 1 tab(s) orally once a day , Medication List reviewed and reconciled with the patient * Allergies: P enicillin: hives - Allergy. Objective: * Vitals: N urse: dw, Pain: 0, Temp: 98.3, RR: 18, HR: 74, BP: 152/110, Ht: 68, Wt: 210, BMI:31.93. * Examination: G eneral Examination: General P leasant and Cooperative, NAD on RA,. Oral cavity: M oist membranes. Chest: n ormal shape and expansion. Heart: R egular Rate and Rhythm, no murmur, rubs or gallops. HEENT: p harynx and tonsils normal, TM's normal. Lungs: L CTAB, No wheezes, crackles or rhonchi, Good air movement,. Abdomen: S oft, NTND, BSNA, No organomegaly or peritoneal signs.. Neurologic Exam: n o focal signs,, normal sensation, strength, tone and reflexes,, Alert and oriented x 3. Skin: w ithout acute rashes. Peripheral pulses: n ormal (2+) bilaterally. Back: n ormal,. Extremities: n ormal ROM,, no clubbing, no edema,, no foot lesions,. neck s upple,, no thyromegaly,, no lymphadenopathy,. Psych N ormal Mood/Affect. diabetic foot exam V isual exam of foot performed: Y es. Neck s upple, no lymphadenopathy. General Appearance: N AD, pleasant. Assessment: * Assessment: 1. H ypoglycemia - E16.2 (Primary) 2 . H ypertension, essential - I10 ? 3 . T ype 2 diabetes mellitus with other circulatory complications - E11.59 ? 4 . H ospital discharge follow-up - Z09 Plan: * Treatment: 2. H ypertension, essential Notes: Saw cardiology earlier today for preop for EGD. They started HCTZ. Seems agreeable. Will follow at next visit 3. T ype 2 diabetes mellitus with other circulatory complications Notes: See notes above, A1c in the hospital is not awful. Make changes above, start Dexcom ? 4. H ospital discharge follow-up Notes: Personally reviewed H&P and discharge summary as available from hospital discharge documentation. Reviewed pertinent labs and test done in the hospital. Personally reconciled medication. * Procedure Codes: 9 9495 TRANS CARE MGMT 14 DAY DISCH, Modifiers: 25 , 1111F DSC MED/CURENT MED MERGE * Follow Up: p rn * * Sign off status: Completed true * Provider: Valarie Ahn MD Date: 0 03/26/2025 Generated for Ginger griffiths/Sirisha/eTransmitting on: 0 05/06/2025 10:56 AM EDT History and Physical Notes * HPI (History of Present Illness) Category Sub-Category Detail Notes Category Not es [place]trim History Transition of care visit from hospital Date of admission to hospital:: 03/17/2025 Here for follow-up of his recent hospitalization. Admitted overnight and discharged 8 days ago. I reviewed his discharge summary. Basically, became hypoglycemic. Is on glimepiride and long-acting Lantus along with combination GLP/insulin in the mornings. We have used sulfonylureas because of his young age and cost issues with co-pays with more advanced oral medications. He is now off glimepiride and was instructed to reduce his Lantus and hold it. He is now becomes extremely hyperglycemic. Date of receipt of hospital admission re port:: 03/18/2025 Date of discharge from hospital:: 2024 Date of receipt of hospital discharge sharma mmary:: 03/19/2025 Discharge medications review ed and reconciled from hospital:: Medications left unchanged Examination Category Sub-Category Detail Notes Category Not es General Examination HEENT: pharynx and tonsils normal, TM's normal Neck supple, no lymphaden opathy Heart: Regular Rate and Rhy thm, no murmur, rubs or gallops Lungs: LCTAB, No wheezes, c rackles or rhonchi, Good air movement, Abdomen: Soft, NTND, BSNA, No organomegaly or peritoneal signs. Extremities: normal ROM,, no club toni, no edema,, no foot lesions, General Appearance: NAD, pleasant Skin: without acute rashes Neurologic Exam: no focal signs,, nor mal sensation, strength, tone and reflexes,, Alert and oriented x 3 Oral cavity: Moist membranes Peripheral pulses: normal (2+) bilatera lly Back: normal, Chest: normal shape and exp ansion neck supple,, no thyromeg julito,, no lymphadenopathy, General Pleasant and Coopera tive, NAD on RA, Psych Normal Mood/Affect diabetic foot exam Visual exam of foot performed :: Yes
--- OUTSIDE RECORDS SUMMARY | 2025-04-08 12:15 | XMS_ITS ---
Author Organization [facility] Address [address] [facility] [address] [place] [address] Care Team Providers Care Entry Level Electrician Name Role Phone Campos Ahn Primary Care [...] morning Orally Once a day Active Pen [place] NA INJECT SUBCUTANEOUS *Please revi ew and pick correct strength-formula tion from [employer] options. If intended option is not shown, discontinue and re-order from Quick Search* 06/04/2023 Active Social History Tobacco Use: Social History Observation Description Date Details (start date - stop date) Never Smoker NA - NA Smoking: Question Answer Notes Are you a: nonsmoker Vital Signs Temperature 97.7 degrees Fahrenheit 04/08/20 25 Blood pressure systolic 148 mm Hg 04/08/20 Blood pressure diastolic 94 mm Hg 025 Heart Rate 84 /min 04/08/2025 Height 68 in 04/08/2025 Weight 211.4 lbs 04/08/2025 BMI 32.14 kg/m2 04/08/2025 Encounters Encounter Location Date Provider Diagnosis [facility] [address] [place] [address] 04/08/2025 Campos Ahn SOB (shortness of breath) [...] Provider Name:Campos Ahn, 05/07/2025 11:30:00 AM, [address] [address], [place], [address], Progress Notes * Ralph DUNN SDOB: [birth year] (54 yo M)Acc No.[id number]:04/08/2025 Progress Notes Patient: Ralph LADD Provider: Valarie Ahn MD :1970 A ge:54 Y S ex:Male Date:04/08/2025 Address:[address] [place] [address] , [place], [id number] Subjective: * Chief Complaints: * 1 . [...] , Covid 2019, H- Heart Attack 2023, [facility] 03/17-03/2025. * Family History: F ather: [...] active: yes. Travel outside [place]: no. 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 * Medications: T aking hydroCHLOROthiazide 25 MG Tablet 1 tablet in the morning Orally Once a day , Taking Pen [place] NA NA INJECT SUBCUTANEOUS , Notes to Pharmacist: *Please review and pick correct strength-formulation from [employer] options. If intended option is not shown, [...] 04/08/2025 Generated for Ginger griffiths/Sirisha/eTransmitting on: 0 05/06/2025 10:55 AM EDT History and Physical Notes * [...]
--- OUTSIDE RECORDS SUMMARY | 2025-04-20 04:45 | XMS_ITS ---
Author Organization [facility] Address [address] [place] [address] Care Team Providers Care Evaluator Name Role Phone Campos Ahn Primary Care Provider Campos Ahn Unavailable Unavailable REASON FOR VISIT f/u Encounters Encounter Location Date Provider Diagnosis [facility] [address] [place], [place] [address] 04/20/2025 Campos Ahn Plan Of Treatment Next Appt Details Provider Name:Campos Ahn, 05/07/2025 11:30:00 AM, [address] [place] [address], [phone], Progress Notes * Ralph DUNN SDOB: [birth year] (54 yo M)Acc No.[id number]:04/20/2025 Progress Notes Patient: Ralph LADD Provider: Valarie Ahn MD :1970 A ge:54 Y S ex:Male Date:04/20/2025 Address:[address] [facility] [id number] Subjective: * Chief Complaints: * 1 . F/u. * Medical History: Objective: * Vitals: Assessment: Plan: * Treatment: * * Electronic signature of Papa Ahn MD FAAP on 05/06/2025 at 10:55 AM EDT Sign off status: Pending * Provider: Valarie Ahn MD Date: 0 04/20/2025 Generated for Ginger griffiths/Sirisha/Jam on: 0 05/06/2025 10:55 AM BRENT
--- NOTE | 2025-05-06 | CA_ITS ---
APPROVED REPORT Exam: Exercise Treadmill Technologist: Nancy Miles Ht: 6 ft 6 in Wt: 210 lbs BSA: 2.31 m2 Medical History Medications: atorvastatin, bupropion HCI XL, cetirizine, plavix, famotidine, flonase, furosemide, HCTZ, lantus, insulin, isosorbide mononitrate ER, losartan, metformin, metoprolol, omeprazole, sertraline, zenpep. Stress Test Details Test: Exercise stress testing was performed using a Deep protocol. HR Resting HR: 80 bpm Max Heart Rate (APMHR): 164 bpm Max HR Achieved: 122 bpm Target HR (85% APMHR): 139 bpm % of APMHR: 74 Recovery HR: 87 bpm BP Resting BP: 135.0/106.0 mmHg Max BP: 190.0/116.0 mmHg Recovery BP: 143.0/71.0 mmHg ECG Stress ECG Conclusion Symptoms: SOB with peak exercise. Arrhythmias/Ectopy: None. ST-T Changes: <1.[address] depression. Electronically signed by : Eugenie Silver MD 05/10/2025 11:52:56
--- OUTSIDE RECORDS SUMMARY | 2025-05-06 10:56 | XMS_ITS | Patient Health Record ---
Author Organization [facility] Address [address] [place] [address] Care Team Providers Care Independent Video Producer Name Role Phone Campos Ahn Primary Care Provider [phone] Campos Ahn Unavailable Unavailable Mitzi Mendoza Unavailable [phone] Migration, Provider Unavailable Unavailable Allergies Allergen (clinical drug ingredient) Drug/Non Drug Allergy documented on EMR Reaction Allergy Type Onset Date Status Penicillin hives Drug Allergy Active Results Component Value Reference Range Notes MODIFIED BARIUM SWALLOW Reviewed date:01/26/2025 02:27:28 PM Interpretation: Performing Lab: Notes/Report: HEMOGLOBIN A1c (496) Reviewed date:11/27/2024 01:56:46 PM Interpretation: Performing Lab:CB, [facility] Ngza8404 [facility], [facility] CenterImisMY[address] Amadou Gleason Notes/Report: FASTING: YES FASTING:YES NON-FASTING; NON-FASTING; NON-FASTING; NON-FASTING HEMOGLOBIN A1c 8.7 <5.7 % of total [...] Reviewed date:11/27/2024 01:56:46 PM Interpretation: Performing Lab:[facility] Whelse-Niota Btcu4913 impokteThe [facility], [facility] HealthJzqoZU[address] Amadou Gleason Notes/Report: NON-FASTING; NON-FASTING; NON-FASTING; NON-FASTING [...] MPV 9.1 7.5-12.5 fL ABSOLUTE NEUTROPHILS 6559 4882-9542 cells/uL ABSOLUTE LYMPHOCYTES 2009 850-3900 cells/uL ABSOLUTE MONOCYTES 1000 200-950 cells/uL ABSOLUTE EOSINOPHILS 541 15-500 cells/uL ABSOLUTE BASOPHILS 92 0-200 cells/uL NEUTROPHILS 64.3 LYMPHOCYTES 19.7 MONOCYTES 9.8 EOSINOPHILS 5.3 BASOPHILS 0.9 COMPREHENSIVE METABOLIC PANE (03511) Reviewed date:11/27/2024 01:56:46 PM Interpretation: Performing Lab:[facility] W[facility]se-Niota Yepk3631 impoktel [facility], [facility] HospitalWkljMZ[address] Amadou Gleason Notes/Report: FASTING:YES FASTING: YES NON-FASTING; NON-FASTING; NON-FASTING; NON-FASTING GLUCOSE 175 65-99 mg/dL follow-up test. Fasting [...] (7600) Reviewed date:11/27/2024 01:56:46 PM Interpretation: Performing Lab:[facility]se-Cardica Vtrd8086 [facility] Amadou Gleason Notes/Report: NON-FASTING; NON-FASTING; NON-FASTING; [...] LDL-C. Myles JESUS et al. ASHA. 2013;310(19): 6214-2878 (http://education.LYSOGENE.com/faq/IAF877) CHOL/HDLC RATIO 3.9 <5.0 (calc) NON HDL CHOLESTEROL 100 <130 mg/dL (calc) For patients with diabetes plus 1 major ASCVD risk factor, treating to a non-HDL-C goal of <100 mg/dL (LDL-C of <70 mg/dL) is considered a therapeutic option. LIPID PANEL, STANDARD (7600) Reviewed date:06/30/2024 09:30:43 AM Interpretation: Performing Lab:[facility] Giftah Csim5394 [facility] Centerte[facility], [facility] CenterGiahYO[address] Amadou Gleason Notes/Report: FASTING: YES FASTING:YES NON-FASTING; [...] LDL-C. Myles JESUS et al. ASHA. 2013;310(19): 5834-4976 (http://education.LYSOGENE.[facility]/faq/CLB283) CHOL/HDLC RATIO 5.2 <5.0 (calc) NON HDL CHOLESTEROL 195 <130 mg/dL (calc) For patients with diabetes plus 1 major ASCVD risk factor, treating to a non-HDL-C goal of <100 mg/dL (LDL-C of <70 mg/dL) is considered a therapeutic option. COMPREHENSIVE METABOLIC STANTON Godwin (12773) Reviewed date:06/30/2024 09:30:43 AM Interpretation: Performing Lab:[facility] WhelseCardica Mqnt5757 impokteThe [facility], Essentia HealthFqgdOW[address] Amadou Gleason Notes/Report: NON-FASTING; NON-FASTING; NON-FASTING FASTING:YES [...] Reviewed date:06/30/2024 09:30:43 AM Interpretation: Performing Lab:[facility], Whelse-Huseyin Zamarripae1355 [facility] Centerte[facility], Huseyin CampoverdeRdcxHW[address] Amadou Gleason Notes/Report: NON-FASTING; NON-FASTING; NON-FASTING FASTING:YES [...] change in test platforms from the [employer] to the [employer] hope c503 may have shifted HbA1c results compared to historical results. Based on laboratory validation testing conducted at [employer], the [employer] platform relative to the [employer] [...] Diagnosis 1 Esophageal dysphagia (R13.19) Referral Organization [facility] DANNY Referring Provider First Name Mitzi Referring Provider Last Name Kelly Referring Provider Speciality Family Pra ctice Referred Organization [facility] Referred Address [address] [place],[address],[place] Referred Provider Specialty Diagnostic R adiology General Notes Harshal Naila 2024 11:24:21 AM > Referral Priority Routine Referral Appointment Date 12/15/2024 Reason GI -swallowing study normal, refer to GI for globus sensation Referral Organization [facility] Referring Provider First Name Mitzi Referring Provider Last Name Kelly Referring Provider Speciality Critical access hospital Referred Organization [facility] Referred Address [address] [place],[address],[place] Referred Provider Specialty Gastroentero logy General Notes Harshal Naila 2024 02:53:29 PM >Sent to Dr. Blackburn Referral Priority Routine Referral Appointment Date 03/10/2025 Medications Medication SIG (Take, Route, Frequency, Duration) Notes Start Date End Date Status Soliqua 100-33 UNT-MCG/ML INJECT 60 UNITS SUBCUTANEOUSLY ONCE DAILY; Duration: 25 Active EQ Allergy Relief (Cetirizine) 10 MG Take [...] day(s) 04/08/2025 Active Sertraline HCl 100 MG Take 1 tablet by mouth once daily; Duration: 90 Active Plavix 75 MG 1 tab(s) orally once a day; Duration: 90 days Active buPROPion HCl ER (XL) 150 MG 1 tab(s) orally every 24 hours; Duration: 90 days Active Losartan Potassium 100 MG Take 1 tablet by mouth once daily; Duration: 30 Active Pen Belcamp NA INJECT SUBCUTANEOUS *Please revi ew and pick correct strength-formula tion from [employer] options. If intended option is not shown, [...] Comme nts Flublok IM Intramuscular 06/25/2024 Administered SHINGRIX IM Intramuscular 10/17/2023 Administered SHINGRIX IM Intramuscular 01/30/2024 Administered FLUZONE 6MO - OLDER IM Intramuscular 08/06/2023 Administer ed Social History Tobacco Use: Social History Observation Description Date Details (start date - stop date) Never Smoker NA - NA Smoking: Question Answer Notes Are you a: nonsmoker Problems Problem Type SNOMED Code ICD Code Onset Dates Problem Status W/U Status Risk Notes Problem Peripheral circulatory disorder associated with diabetes mellitus (660892663) Type 2 diabetes mellitus with other circulatory complications (E11.59) Active confirmed Problem Atherosclerotic heart disease of cahto coronary artery without angina pectoris (084022665544303) 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) Active confirmed Problem Body mass index 30.00 to 34.99 (154103785861145) BMI 31.0-31.9,adult (Z68.31) Active confirmed Problem Hypoglycemia (276246021) Hypoglycemia (E16.2) Active confirmed Problem Primary hypertension (33295697) Primary hypertension (I10) Active confirmed Problem Hyperglycemia due to type 2 diabetes mellitus (565518272504240) Type 2 diabetes mellitus with hyperglycemia, without long-term current use of insulin (E11.65) Active confirmed Problem Seasonal allergic rhinitis (811982878) Seasonal allergic rhinitis, unspecified trigger (J30.2) Active confirmed Problem Major depression, single episode (47717410) Major depressive episode (F32.9) Active confirmed Problem Gastroesophageal reflux disease (262848070) Gastroesophageal reflux disease, unspecified whether esophagitis present (K21.9) Active confirmed Vital Signs Heart Rate 84 /min 04/08/2025 Temperature 97.7 degrees Fahrenheit 04/08/2025 Blood pressure diastolic 94 mm Hg 04/08/2025 Height 68 in 04/08/2025 Blood pressure systolic 148 mm Hg 04/08/2025 Weight 211.4 lbs 04/08/2025 BMI 32.14 kg/m2 04/08/2025 Encounters Encounter Location Date Provider Diagnosis [facility] [address] [facility] [address] [place] [address] 01/17/2025 Provider Migration Primary hypertension I10 [facility] [address] [facility] [address] [place], [place] [address] 06/25/2024 Campos Ahn Type 2 diabetes tani itus with other circulatory complications E11.59 ; Atherosclerotic heart disease of cahto coronary artery without angina pectoris I25.10 ; Hoarseness R49.0 and Immunization(s) administered Z23 [facility] [address] [facility] [address] [place], [place] [address] 09/08/2024 Campos Ahn Atherosclerotic hear t disease of cahto coronary artery without angina pectoris I25.10 ; Pain, gastric R10.9 ; Type 2 diabetes mellitus with other circulatory complications E11.59 and Hospital discharge follow-up Z09 [facility] [address] [facility] [address] [place] [address] 11/25/2024 Mitzi Mendoza Routine medical exam Z00.00 ; Type 2 diabetes mellitus with hyperglycemia, without long-term current use of insulin E11.65 ; Primary hypertension I10 ; Atherosclerotic heart disease of cahto coronary artery without angina pectoris I25.10 ; Gastroesophageal reflux disease, unspecified whether esophagitis present K21.9 ; Major depressive episode F32.9 ; Esophageal dysphagia R13.19 and BMI 31.0-31.9,adult Z68.31 [facility] [address] [place] [address] 01/15/2025 Mitzi Mendoza Type 2 diabetes tani itus with hyperglycemia, without long-term current use of insulin E11.65 and Primary hypertension I10 [facility] [address] [place] [address] 03/26/2025 Campos Ahn Hypoglycemia E16.2 ; Hypertension, essential I10 ; Type 2 diabetes mellitus with other circulatory complications E11.59 and Hospital discharge follow-up Z09 [facility] [address] [facility] [address] [place], [place] [address] 04/08/2025 Campos Ahn SOB (shortness of breath) R06.02 and Type 2 diabetes mellitus with hyperglycemia, without long-term current use of insulin E11.65 [facility] [address] [place] [address] 05/08/2024 Campos Besson Primary hypertension I10 [facility] [address] [place] [address] 07/08/2024 Campos Besson [facility] [address] [place] [address] 07/10/2024 Campos Besson [facility] [address] [place] [address] 08/27/2024 Campos Besson Primary hypertension I10 [facility] [address] [place] [address] 09/02/2024 Campos Besson [facility] [address] [place] [address] 10/17/2024 Campos Besson Seasonal allergic rhinitis, unspecified trigger J30.2 [facility] [address] [place] [address] 10/29/2024 Campos Besson [facility] [address] [place] [address] 11/27/2024 Mitzi McNees [facility] [address] [place] [address] 03/10/2025 Campos Besson [facility] [address] [place] [address] 03/17/2025 Mitzi McNees [facility] [address] [place] [address] 03/18/2025 Campos Besson [facility] [address] [place] [address] 04/13/2025 Campos Besson Assessments Encounter Date Diagnosis (ICD Code) Assessment Notes Treatment Notes Treatment Clinical Notes Section Notes 05/08/2024 Primary hypertension (ICD-10 - I10) 06/25/2024 [...] A1c today 06/25/2024 Atherosclerotic heart disease of cahto coronary artery without angina pectoris (ICD-10 - I25.10) - lipid panel ordered today 08/27/2024 Primary hypertension (ICD-10 - I10) 09/08/2024 Atherosclerotic heart disease of cahto coronary artery without angina pectoris (ICD-10 - [...] weeks to see how he is doing. 06/25/2024 Immunization(s) administered (ICD-10 - Z23) 09/08/2024 Hospital discharge follow-up (ICD-10 - Z09) Patient discharged from ED on 09/02 s/p NSTEMI with 3 new stents. Doing better, just fatigued. Follow up in 6 weeks. Please note I reviewed hospital H&P and discharge summary. Personally reconciled medications and corrected medication list on our end. 11/25/2024 Atherosclerotic heart disease of cahto coronary artery without angina pectoris (ICD-10 - I25.10) No acute angina. Maximize glucose, LDL and b/p control 03/26/2025 Hospital discharge follow-up (ICD-10 - Z09) Personally reviewed H&P and discharge summary as available from hospital discharge documentation. Reviewed pertinent labs and test done in the hospital. Personally reconciled medication. 11/25/2024 Gastroesophageal reflux disease, unspecified whether esophagitis present (ICD-10 - K21.9) Well controlled. 11/25/2024 Major depressive episode (ICD-10 - F32.9) Well controlled. 11/25/2024 Esophageal dysphagia (ICD-10 - R13.19) Will obtain MBS for evaluate for stricture and review as indicated 11/25/2024 BMI 31.0-31.9,adult (ICD-10 - Z68.31) Recommed diet, exercise, weight loss Plan Of Treatment Next Appt Details Provider Name:Campos Ahn, 05/07/2025 11:30:00 AM, [address], [address], Insurance Providers Payer Name Payer Address Payer Phone Subscriber Number Group Number Insured Name Patient Relationship to Insured Coverage Start Date Coverage End Date [facility] [address] [place] [address] [id number] Ralph Dunn Self - patient is the insured Medical (General) History Medical History History ICD Code Heart Disease HTN Diabetes Depression Colon polyps on scope 2019 Heart Attack Surgical History Surgery Date(Month/Year) Hernia Repair 2019 Heart Cath x 10 2000,2006 Heart Cath w Stent Placement x 3 2023 Hospitalization History Reason Date(Month/Year) [facility] 03/17-03/2025 [facility]- Heart Attack 2023 Covid 2020 Heart Cath
--- NOTE | 2025-05-06 11:00 | CA_ITS ---
APPROVED REPORT EXAM: Comprehensive 2D, Doppler, and color-flow Echocardiogram Review Trainer: Laverne Hoffmann RT(R) Ht: 5 ft 6 in Wt: 210lbs BSA: 2.04 BP: 143/103 mmHg Indications: HOCM, CAD Medical History Medical History: Carotid artery disease Medications: Metoprolol Previous Cardiac Procedures: Myocardial infarction Echo Procedure The patient underwent an Exercise Stress Test using the Deep Protocol. Blood pressure, heart rate, and EKG were monitored. An Echocardiogram was performed by refrigerator repair technician in four stages in quad fashion. At peak stress, four selected images were obtained and placed side by side with resting images for comparison. Stress Test Details Test: Exercise stress testing was performed using a Deep protocol. HR Resting HR: 80 bpm Max Heart Rate (APMHR): 164 bpm Max HR Achieved: 122 bpm Target HR (85% APMHR): 139 bpm % of APMHR: 74 Recovery HR: 87 bpm BP Resting BP: 135/106 mmHg Max BP: 190/116 mmHg BP response to stress: Normal blood pressure response to stress. ECG Resting ECG: NSR Stress ECG: < [address] depression Arrhythmia: None Echo Findings The Pre-Stress Echocardiogram showed normal left ventricular contractility with an estimated Ejection Fraction of about 60%. Pre-stress, there is no evidence of LVOT obstruction at rest. No evidence of systolic anterior motion (XIOMARA). The Post-Stress Echocardiogram showed normal left ventricular contractility with an estimated Ejection Fraction of about 65%. There is good augmentation of LV systolic function. At peak stress, there is no provocable LVOT gradient. Other Information Study Quality: Fair Conclusion History of HCM. No LVOT obstruction at rest. No XIOMARA or septal contact. At peak stress, there is no provocable LVOT gradient. No evidence of arrhythmias with stress testing on ECG. Electronically signed by : Eugenie Silver MD 05/10/2025 11:56:21
== END 2025-05-06 23:59 | disposition home or self-care (01) ==
LOC: RT 10:54
PROVIDERS: PCP Internal Medicine Adolescent Medicine; Visit Provider Nurse Practitioner
DX: I21.4 Non-ST elevation (NSTEMI) myocardial infarction (principal); I10 Essential (primary) hypertension; Z86.79 Personal history of other diseases of the circulatory system
CPT/HCPCS: 93016; 93017; 93018; 93350

== ENCOUNTER 2025-06-05 07:45 | Outpatient (CLI) | payer OTHER, SELFPAY ==
--- NOTE | 2025-06-05 08:00 | NM_ITS ---
APPROVED REPORT Industrial Commercial Groundskeeper: Procedure: 99mTc-PYP Cardiac Amyloidosis Imaging Clinical Indication: Heart failure, increased LV wall thickness Protocol: The patient received 26.9 mCi 99mTc-PYP intravenously. Planar and SPECT imaging was performed approximately 3 hours post injection. Planar images included anterior, left lateral and BELKIS-45 projections. Findings: Visual interpretation: Planar and SPECT images were reviewed The overall quality of the study was good. Semi quantitative SPECT findings showed a grade 1. Impression: 1. Overall, the quality of the study was fair. 2. Semi quantitative SPECT findings showed grade 1. 3. Overall interpretation of the findings is not suggestive of ATTR amyloidosis. This study and report were reviewed and signed by Kalia Silver MD (terrazzo worker apprentice). Conclusion Electronically signed by : Eugenie Silver MD 06/07/2025 14:34:54
[2025-06-05] MEDS: PYROPHOSPHATE CARDIAC (PYP);1 DOSE VIAL IV (10:22)
[2025-06-05] MEDS: SODIUM CHLORIDE 0.9% 10ML SYR (RAD ONLY) 10 ML IV (10:22)
== END 2025-06-05 23:59 | disposition home or self-care (01) ==
LOC: RAD 07:46
PROVIDERS: PCP Internal Medicine Adolescent Medicine; Visit Provider Nurse Practitioner
DX: E11.9 Type 2 diabetes mellitus without complications (principal); E78.2 Mixed hyperlipidemia; I10 Essential (primary) hypertension; I21.4 Non-ST elevation (NSTEMI) myocardial infarction; I25.10 Atherosclerotic heart disease of native coronary artery without angina pectoris; I42.2 Other hypertrophic cardiomyopathy
CPT/HCPCS: 78803

== ENCOUNTER 2025-06-16 15:57 | Outpatient (CLI) | payer OTHER, SELFPAY ==
--- NOTE | 2025-06-16 16:00 | CA_ITS ---
FINAL REPORT TECHNIQUE: Multiple transverse and longitudinal images were performed of the right femoral-popliteal deep venous system with augmentation and compression maneuvers. CLINICAL HISTORY: Sharp pain in RLE posterior calf that comes and goes. Denies trauma. HTN, HLD, DM. FINDINGS: Right lower extremity duplex ultrasound demonstrates normal flow in the deep venous system. There is no abnormal echogenicity to suggest thrombus. There is normal compression and augmentation. IMPRESSION: No evidence of right DVT. Reviewed, Interpreted and Dictated by Bill Hurley MD Transcribed by Simran Serrano Authenticated and [facility]
== END 2025-06-16 23:59 | disposition home or self-care (01) ==
LOC: RT 15:58
PROVIDERS: PCP Internal Medicine Adolescent Medicine; Visit Provider Nurse Practitioner
DX: I25.10 Atherosclerotic heart disease of native coronary artery without angina pectoris (principal); I10 Essential (primary) hypertension; M79.661 Pain in right lower leg; E78.5 Hyperlipidemia, unspecified; E11.9 Type 2 diabetes mellitus without complications
CPT/HCPCS: 93971

== ENCOUNTER 2025-10-02 10:40 | Outpatient (CLI) | payer OTHER, SELFPAY ==
--- OUTSIDE RECORDS SUMMARY | 2025-04-20 03:45 | XMS_ITS ---
Author Organization [facility] Address [address] [facility] [address] [place] [address] Care Team Providers Care Home Visits Nurse Name Role Phone Campos Ahn Primary Care Provider Campos Ahn Unavailable Unavailable REASON FOR VISIT f/u Encounters Encounter Location Date Provider Diagnosis [facility] [address] [facility] [address] [place] [address] 04/20/2025 Campos Ahn Plan Of Treatment Next Appt Details Provider Name:Erin Khan ce, 11/16/2025 10:00:00 AM, [address] [facility], [address], [place], [address], Progress Notes * Ralph DUNN SDOB: [birth year] (54 yo M)Acc No.[id number]:04/20/2025 Progress Notes Patient: Dion CORDOVA Ralph Valarie Provider: Valarie Ahn MD :1970 A ge:54 Y S ex:Male Date:04/20/2025 Address:[address] [facility] [id number] Subjective: * Chief Complaints: * 1 . F/u. * Medical History: Objective: * Vitals: Assessment: Plan: * Treatment: * * Electronic signature of Papa Ahn MD FAAP on 10/02/2025 at 10:43 AM EST Sign off status: Pending * Provider: Valarie Ahn MD Date: 0 04/20/2025 Generated for Ginger griffiths/Sirisha/Cadeitting on: 1 12/03/2024 10:43 AM EST
--- OUTSIDE RECORDS SUMMARY | 2025-05-07 06:30 | XMS_ITS ---
Author Organization [facility] Address [address] [facility] [address] [facility] [address] [place] [address] Care Team Providers Care Personal Development Educator Name Role Phone Campos Ahn Primary Care Provider [phone] Campos Ahn Unavailable Unavailable REASON FOR VISIT F/U Encounters Encounter Location Date Provider Diagnosis [place] [address] [address] 05/07/2025 Campos Ahn Plan Of Treatment Next Appt Details Provider Name:Erin Khan ce, 11/16/2025 10:00:00 AM, [address] [facility] [address] [facility], [address], [place], [address], Progress Notes * Ralph DUNN SDOB: [birth year] (54 yo M)Acc No.[id number]:05/07/2025 Progress Notes Patient: Ralph LADD Provider: Valarie Ahn MD :1970 A ge:54 Y S ex:Male Date:05/07/2025 Address:[address] [facility] [address] [place] Subjective: * Chief Complaints: * 1 . F/U. * Medical History: Objective: * Vitals: Assessment: Plan: * Treatment: * * Electronic signature of Papa Ahn MD FAAP on 10/02/2025 at 10:43 AM EST Sign off status: Pending * Provider: Valarie Ahn MD Date: 0 05/07/2025 Generated for Ginger griffiths/Sirisha/Jam on: 1 12/03/2024 10:43 AM EST
--- OUTSIDE RECORDS SUMMARY | 2025-06-10 05:45 | XMS_ITS ---
Author Organization [facility] Address [address] [address] [place] [address] Care Team Providers Care Architectural Examiner Name Role Phone Campos Ahn Primary Care Provider Campos Ahn Unavailable Unavailable Erin Barrios Unavailable [phone] REASON FOR VISIT CDL Encounters Encounter Location Date Provider Diagnosis [place] [address] [address] 06/10/2025 Erin Barrios Plan Of Treatment Next Appt Details Provider Name:Erin Khan ce, 11/16/2025 10:00:00 AM, [address], [place], [address], Progress Notes * Ralph DUNN SDOB: [birth year] (54 yo M)Acc No.[id number]:06/10/2025 Progress Notes Patient: Dion ANTONIONICK Ralph Valarie Provider: ZO Henderson :1970 A ge:54 Y S ex:Male Date:06/10/2025 Address:[address] [facility] [place], [place] Pcp:Campos Ahn Subjective: * Chief Complaints: * 1 . CDL. * Medical History: Objective: * Vitals: Assessment: Plan: * Treatment: * * Electronic signature of Zunilda Barrios APRN on 10/02/2025 at 10:43 AM EST Sign off status: Pending * Provider: ZO Henderson Date: 0 06/10/2025 Generated for Ginger griffiths/Sirisha/Jam on: 1 12/03/2024 10:43 AM EST
--- OUTSIDE RECORDS SUMMARY | 2025-07-06 07:15 | XMS_ITS ---
Author Organization [facility] Address [address] [facility] [address] [address] [facility] [address] [place] [address] Care Team Providers Care Edger Hand Name Role Phone Campos Ahn Primary Care Provider Campos Ahn Unavailable Unavailable Erin Barrios Unavailable [phone] REASON FOR VISIT 3 Week F/U Encounters Encounter Location Date Provider Diagnosis [facility] [address] [facility] [address] [place], [place] [address] 07/06/2025 Erin Barrios Plan Of Treatment Next Appt Details Provider Name:Erin Khan ce, 11/16/2025 10:00:00 AM, [address] [facility], [address], [place], [place], [address], Progress Notes * Ralph DUNN SDOB: [birth year] (54 yo M)Acc No.[id number]:07/06/2025 Progress Notes Patient: Ralph LADD Provider: ZO Henderson :1970 A ge:54 Y S ex:Male Date:07/06/2025 [address] [facility] [address] [place] [place] Pcp:Campos Ahn Subjective: * Chief Complaints: * 1 . 3 Week F/U. * Medical History: Objective: * Vitals: Assessment: Plan: * Treatment: * * Electronic signature of Zunilda Barrios APRN on 10/02/2025 at 10:42 AM EST Sign off status: Pending * Provider: ZO Henderson Date: 0 07/06/2025 Generated for Ginger griffiths/Sirisha/Jam on: 1 12/03/2024 10:42 AM EST
--- OUTSIDE RECORDS SUMMARY | 2025-10-02 10:43 | XMS_ITS | Patient Health Record ---
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 Name Role Phone Campos Ahn Primary Care Provider Campos Ahn Unavailable Unavailable Erin Barrios Unavailable [phone] Mitzi Mendoza Unavailable [phone] Migration, Provider Unavailable Unavailable Allergies Allergen (clinical drug ingredient) Drug/Non Drug Allergy documented on EMR Reaction Allergy Type Onset Date Status Penicillin hives Drug Allergy Active Results Component Value Reference Range Notes HEMOGLOBIN A1c (496) Reviewed date:06/16/2025 12:36:21 PM Interpretation: Performing Lab:[facility] [id number] [facility] Amadou Gleason Notes/Report: NON-FASTING HEMOGLOBIN A1c 8.7 <5.7 % For someone without known diabetes, a hemoglobin [...] A1c for diagnosis of diabetes for children. MODIFIED BARIUM SWALLOW Reviewed date:01/26/2025 02:27:28 PM Interpretation: Performing Lab: Notes/Report: HEMOGLOBIN A1c (496) Reviewed date:11/27/2024 01:56:46 PM Interpretation: Performing Lab:[facility] [id number] [address], [facility] Center[facility]jxgJE[address] Amadou Gleason Notes/Report: NON-FASTING; NON-FASTING; NON-FASTING; NON-FASTING [...] of diabetes for children. COMPREHENSIVE METABOLIC PANE Citlali (23651) Reviewed date:11/27/2024 01:56:46 PM Interpretation: Performing Lab:[facility] [id number] [address], [facility]wwMK[address] Amadou Gleason Notes/Report: NON-FASTING; NON-FASTING; NON-FASTING; NON-FASTING [...] 17 10-35 U/L ALT 27 9-46 U/L CBC (INCLUDES DIFF/PLT) (639 9) Reviewed date:11/27/2024 01:56:46 PM Interpretation: Performing Lab:[facility] [address], [facility] CenterJzbgGA[address] Amadou Gleason Notes/Report: NON-FASTING; NON-FASTING; NON-FASTING; NON-FASTING [...] MPV 9.1 7.5-12.5 fL ABSOLUTE NEUTROPHILS 6559 1279-2175 cells/uL ABSOLUTE LYMPHOCYTES 2009 850-3900 cells/uL ABSOLUTE MONOCYTES 1000 200-950 cells/uL ABSOLUTE EOSINOPHILS 541 15-500 cells/uL ABSOLUTE BASOPHILS 92 0-200 cells/uL NEUTROPHILS 64.3 LYMPHOCYTES 19.7 MONOCYTES 9.8 EOSINOPHILS 5.3 BASOPHILS 0.9 LIPID PANEL, STANDARD (7600) Reviewed date:11/27/2024 01:56:46 PM Interpretation: Performing Lab:[facility] [id number] [facility], [facility] HospitalBpmaCU[address] Amadou Gleason Notes/Report: NON-FASTING; NON-FASTING; NON-FASTING; NON-FASTING [...] equation in the estimation of LDL-C. Myles JESSU et al. ASHA. 2013;310(19): 3666-6147 (http://education.[employer]/faq/EDU315) CHOL/HDLC RATIO 3.9 <5.0 (calc) NON HDL CHOLESTEROL 100 <130 mg/dL (calc) For patients with diabetes plus 1 major ASCVD risk factor, treating to a non-HDL-C goal of <100 mg/dL (LDL-C of <70 mg/dL) is considered a therapeutic option. Reason For Referral Reason Modified Barium Swal low Diagnosis 1 Esophageal dysphagia (R13.19) Referral Organization [facility] Referring Provider First Name Mitzi Referring Provider Last Name Kelly Referring Provider [facility] Referred Organization [facility] Referred Address [facility],[address], Referred Provider Specialty Diagnostic R adiology General Notes Naila Caputo 2024 11:24:21 AM > Referral Priority Routine Referral Appointment Date 12/15/2024 Reason GI -swallowing study normal, refer to GI for globus sensation Referral Organization [facility] [place] LISA [facility] Referring Provider First Name Mitzi Referring Provider Last Name Kelly Referring Provider [facility] Referred Organization [facility] Referred Address [address],[address], Referred Provider Specialty Gastroentero logy General Notes Naila Caputo 2024 02:53:29 PM >Sent to Dr. Blackburn Referral Priority Routine Referral Appointment Date 03/10/2025 Reason Urology at [facility] Diagnosis 1 Nocturia (R35.1) Ref[facility] Referring Provider First Name Erin Referring Provider Last Name Sophie Referring Provider [facility] General Notes Naila Caputo 2024 02:45:34 PM >VM left with patient Referral Priority Routine Referral Appointment Date 08/10/2025 Medications Medication SIG (Take, Route, Frequency, Duration) Notes Start Date End Date Status Famotidine 40 MG TAKE 1 TABLET BY DELMY TH ONCE DAILY AT BEDTIME; Duration: 90 Active EQ Allergy Relief (Cetirizine) 10 MG Take 1 tablet by mouth once daily; Duration: 90 Active Soliqua 100-33 UNT-MCG/ML INJECT 60 UNIT S SUBCUTANEOUSLY ONCE DAILY; Duration: 25 Active Clopidogrel Bisulfate 75 MG Take 1 table t by mouth once daily; Duration: 90 Active Metoprolol Succinate ER 100 MG 1 tab(s) orally once a day; Duration: 90 days Active Tamsulosin HCl 0.4 MG 1 capsule Orally O nce a day; Duration: 30 days Active Sertraline HCl 100 MG Take 1 tablet by m outh once daily; Duration: 90 Active Losartan Potassium 100 MG Take 1 tablet by mouth once daily; Duration: 30 Active Isosorbide Mononitrate ER 60 MG 1 tab(s) orally once a day (in the morning); Duration: 90 days Active hydroCHLOROthiazide 25 MG 1 tablet in th e morning Orally Once a day Active Furosemide 20 MG Take 1 tablet by delmy th once daily; Duration: 30 Active Atorvastatin Calcium 80 MG Take 1 tablet by mouth once daily; Duration: 90 days Active Flonase Allergy Relief 50 MCG/ACT 2 sprays in each nostril once a day; Duration: 30 days prn 06/25/2024 Active buPROPion HCl ER (XL) 150 MG 1 tab(s) or ally every 24 hours; Duration: 90 days Active Pen [place] NA INJECT SUBCUTANEOUS 06/04/2023 Active metFORMIN HCl 1000 MG Take 1 tablet by m outh twice daily; Duration: 30 Active Lantus SoloStar 100 UNIT/ML inject 32 un its subcutaneously every night; Duration: 90 days Active Immunizations Vaccine Route Administration Date Status Comme nts Flublok IM Intramuscular 06/25/2024 Administered FLUCELVAX IM Intramuscular 07/27/2025 Administered FLUZONE 6MO - OLDER IM Intramuscular [...] Peripheral circulatory disorder associated with diabetes mellitus (733192767) Type 2 diabetes mellitus with other circulatory complications (E11.59) Active confirmed Problem Atherosclerotic heart disease of kaw coronary artery without angina pectoris (799886748671362) 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) Active confirmed Problem Body mass index 30.00 to 34.99 (273336059124840) BMI 31.0-31.9,adult (Z68.31) Active confirmed Problem Hypoglycemia (969873249) Hypoglycemia (E16.2) Active confirmed Problem Primary hypertension (21719679) Primary hypertension (I10) Active confirmed Problem Hyperglycemia due to type 2 diabetes mellitus (085417574041454) Type 2 diabetes mellitus with hyperglycemia, without long-term current use of insulin (E11.65) Active confirmed Problem Somnolence (89790897) Somnolence, daytime (R40.0) Active confirmed Problem Seasonal allergic rhinitis (479879870) Seasonal allergic rhinitis, unspecified trigger (J30.2) Active confirmed Problem Major depression, single episode (85051430) Major depressive episode (F32.9) Active confirmed Problem Gastroesophageal reflux disease (108654147) Gastroesophageal reflux disease, unspecified whether esophagitis present (K21.9) Active confirmed Vital Signs Heart Rate 80 /min 10/02/2025 Temperature 97.0 degrees Fahrenheit 10/02/2025 Blood pressure diastolic 82 mm Hg 10/02/2025 Height 68 in 10/02/2025 Blood pressure systolic 126 mm Hg 10/02/2025 Weight 213 lbs 10/02/2025 BMI 32.38 kg/m2 10/02/2025 Encounters Encounter Location Date Provider Diagnosis [facility] [address] [facility] [address] [place], [place] [address] 01/17/2025 Provider Migration Primary hypertension I10 [facility] [address] [facility] [address] [place] [address] 10/02/2025 Erin Barrios Type 2 diabetes tani itus with other circulatory complications E11.59 and Hypertrophic cardiomyopathy I42.2 [facility] [address] [facility] [address] [place] [address] 11/25/2024 Mitzi Mendoza Routine medical exam Z00.00 ; Type 2 diabetes mellitus with hyperglycemia, without long-term current use of insulin E11.65 ; Primary hypertension I10 ; Atherosclerotic heart disease of kaw coronary artery without angina pectoris I25.10 ; Gastroesophageal reflux disease, unspecified whether esophagitis present K21.9 ; Major depressive episode F32.9 ; Esophageal dysphagia R13.19 and BMI 31.0-31.9,adult Z68.31 [facility] [address] [place] [address] 01/15/2025 Mitzi Kelly Type 2 diabetes tani itus with hyperglycemia, without long-term current use of insulin E11.65 and Primary hypertension I10 [facility] [address] [address] 03/26/2025 Camposyaritza Ahn Hypoglycemia E16.2 ; Hypertension, essential I10 ; Type 2 diabetes mellitus with other circulatory complications E11.59 and Hospital discharge follow-up Z09 [facility] [address] [facility] [address] [place] [address] 04/08/2025 Camposyaritza Ahn SOB (shortness of breath) R06.02 and Type 2 diabetes mellitus with hyperglycemia, without long-term current use of insulin E11.65 [facility] [address] [facility] [address] [place] [address] 06/11/2025 Mitzi Kelly Type 2 diabetes tani itus with other circulatory complications E11.59 [facility] [address] [facility] [address] [place] [address] 07/27/2025 Erin Degrootence Nocturia R35.1 ; Somnolence, daytime R40.0 ; Type 2 diabetes mellitus with other circulatory complications E11.59 ; Hypertrophic cardiomyopathy I42.2 and Encounter for immunization Z23 [facility] [address] [address] 10/17/2024 Campos Ahn Seasonal allergic rhinitis, unspecified trigger J30.2 [facility] [address] [facility] [address] [place] [address] 10/29/2024 Campos Besson [facility] [address] [facility] [address] [place] [address] 11/27/2024 Mitzi Kelly [facility] [address] [address] 03/10/2025 Campos Ahn [facility] [address] [place] [address] 03/17/2025 Mitzi Mendoza [facility] [address] [place] [address] 03/18/2025 Campos Lafleurson [facility] [address] [place] [address] 04/13/2025 Campos Lafleurson [facility] [address] [place] [address] 05/27/2025 Erin Barrios [facility] [address] [place] [address] 06/16/2025 Mitzi Mendoza [facility] [address] [place] [address] 06/16/2025 Campos Ahn Type 2 diabetes tani itus with other circulatory complications E11.59 Assessments Encounter Date Diagnosis (ICD Code) Assessment Notes Treatment Notes Treatment Clinical Notes Section Notes 10/17/2024 Seasonal allergic rhinitis, unspecified trigger (ICD-10 [...] be mildly fluid overloaded. Start daily furosemide. 06/11/2025 Type 2 diabetes mellitus with other circulatory complications (ICD-10 - E11.59) Stressed importance of diabetic diet, consistent carb intake and not going extended periods without eating to prevent hypoglycemia. G7 samples provided for continuous glucose monitoring. Will check A1c, expect it to be above goal. 06/16/2025 Type 2 diabetes mellitus with other circulatory complications (ICD-10 - E11.59) 07/27/2025 Nocturia (ICD-10 - R35.1) trial of tamsulosin, consult URO 07/27/2025 Somnolence, daytime (ICD-10 - R40.0) possibly due to nocturia. consider sleep study if no improvement 03/26/2025 Type 2 diabetes mellitus with other circulatory complications (ICD-10 - E11.59) See notes above, A1c in the hospital is not awful. Make changes above, start Dexcom 11/25/2024 Primary hypertension (ICD-10 - I10) Cough likely related to AURORA-I. Change to losartan. B/p check in 2 weeks 11/25/2024 Atherosclerotic heart disease of kaw coronary artery without angina pectoris (ICD-10 - I25.10) No acute angina. Maximize glucose, LDL and b/p control 07/27/2025 Type 2 diabetes mellitus with other circulatory complications (ICD-10 - E11.59) Stressed importance of diabetic diet, consistent carb intake and not going extended periods without eating to prevent hypoglycemia. Using Dexcom which has been helpful. No hypoglycemia in a couple of months. Consider transitioning off of Soliqua and onto Mounjaro 03/26/2025 Hospital discharge follow-up (ICD-10 - Z09) Personally reviewed H&P and discharge summary as available from hospital discharge documentation. Reviewed pertinent labs and test done in the hospital. Personally reconciled medication. 07/27/2025 Hypertrophic cardiomyopathy (ICD-10 - I42.2) following with cardiology 10/02/2025 Type 2 diabetes mellitus with other circulatory complications (ICD-10 - E11.59) Stressed importance of diabetic diet, consistent carb intake and not going extended periods without eating to prevent hypoglycemia. Using Dexcom which has been helpful. No hypoglycemia in a couple of months. Consider transitioning off of Soliqua and onto Mounjaro 10/02/2025 Hypertrophic cardiomyopathy (ICD-10 - I42.2) following with cardiology 07/27/2025 Encounter for immunization (ICD-10 - Z23) 11/25/2024 Gastroesophageal reflux disease, unspecified whether esophagitis present (ICD-10 - K21.9) Well controlled. 11/25/2024 Major depressive episode (ICD-10 - F32.9) Well controlled. 11/25/2024 Esophageal dysphagia (ICD-10 - R13.19) Will obtain MBS for evaluate for stricture and review as indicated 11/25/2024 BMI 31.0-31.9,adult (ICD-10 - Z68.31) Recommed diet, exercise, weight loss Plan Of Treatment Pending Test Test Name Order Date Dietary Consult 06/16/2025 M-Basic Metabolic Panel 10/02/2025 M-Hemoglobin A1C 10/02/2025 M-Microalb/Creat Ratio, Randm Ur 025 Next Appt Details Provider Name:Erin Khan ce, 11/16/2025 10:00:00 AM, [address], [place], [address], Insurance Providers Payer Name Payer Address Payer Phone Subscriber Number Group Number Insured Name Patient Relationship to Insured Coverage Start Date Coverage End Date [facility] [address] [place] [id number] Ralph Dunn Self - patient is the insured Medical (General) History Medical History History ICD Code Heart Disease HTN Diabetes Depression Colon polyps on scope 2020 Heart Attack hypertrophic cardiomyopathy Surgical History Surgery Date(Month/Year) Hernia Repair 2019 Heart Cath x 10 2000,2006 Heart Cath w Stent Placement x 3 2023 Hospitalization History Reason Date(Month/Year[facility] 03/17-03/2025 [facility]- Heart Attack 2023 Covid 2020 Heart Cath
[2025-10-02 11:19] LABS: Chloride 101 mmol/L (98-107); Sodium 140 mmol/L (136-145)
[2025-10-02 11:20] LABS: Potassium 3.9 mmoL/L (3.5-5.1)
[2025-10-02 11:23] LABS: Anion Gap 13.9 mEq/L (5-15); Blood Urea Nitrogen 13 mg/dl (9-20); Calcium 9.9 mg/dl (8.4-10.2); Carbon Dioxide 29 mmol/L (22.0-30.0); Creatinine,Serum 1.00 mg/dl (0.66-1.25); Estimated Glomerular Filt Rate 77 ml/min (>60); GFR (African American) 94 ML/MIN (>60); Glucose 138 mg/dl (74-100)
[2025-10-02 13:47] LABS: Hemoglobin A1C 7.9 % (4.0-6.0)
== END 2025-10-02 23:59 | disposition home or self-care (01) ==
LOC: LAB 10:40
PROVIDERS: PCP Internal Medicine Adolescent Medicine; Visit Provider Nurse Practitioner Family
DX: E11.59 Type 2 diabetes mellitus with other circulatory complications (principal)
CPT/HCPCS: 36415; 80048; 82043; 82570; 83036